=== PATIENT | female | born 1995 | race Caucasian/White ===

== ENCOUNTER 2019-02-12 21:14 | Emergency (ER) | payer SELFPAY ==
[2019-02-13 00:10] LABS: Urine Bacteria 20-50 /HPF (<20); Urine Culture Reflex Order REFLEXED; Urine RBC NONE SEEN /HPF (NONE SEEN)
--- NOTE | 2019-02-13 00:38 | EDPHYS ---
Physician Documentation [facility] Name: Kate Ley Age: 23 yrs Sex: Female : 1995 Arrival Date: 02/12/2019 Time: 21:18 Bed 18 Private MD: ED Physician Jake Fuentes HPI: 02/13 00:23 This 23 yrs old Female presents to ER via Ambulatory with complaints of gs PELVIC PAIN. 00:24 The patient presents with pelvic pain, that is located in/on the left inguinal area. gs Onset: The symptoms/episode began/occurred acutely. Modifying factors: The symptoms are alleviated by nothing, the symptoms are aggravated by nothing. Associated signs and symptoms: Pertinent negatives: fever. Severity of symptoms: At their worst the symptoms were severe, in the emergency department the symptoms have resolved. The patient has experienced similar episodes in the past, a few times. The patient has not recently seen a physician. MISCARRIAGE ABOUT A MONTH AGO. 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 - Social history:: Smoking status: Patient/guardian denies using tobacco. - Ebola Screening: : Patient denies travel to an Ebola-affected area in the 21 days before illness onset. ROS: 02/13 00:24 All other systems are negative. gs 00:37 : Negative for vaginal bleeding, vaginal discharge, vaginal itching. gs Exam: 00:24 Head/Face: Normocephalic, atraumatic. Eyes: Pupils equal round and reactive to light, gs extra-ocular motions intact. Lids and lashes normal. Conjunctiva and sclera are non-icteric and not injected. Cornea within normal limits. Periorbital areas with no swelling, redness, or edema. ENT: Nares patent. No nasal discharge, no septal abnormalities noted. Tympanic membranes are normal and external auditory canals are clear. Oropharynx with no redness, swelling, or masses, exudates, or evidence of obstruction, uvula midline. Mucous membranes moist. Neck: Trachea midline, no thyromegaly or masses palpated, and no cervical lymphadenopathy. Supple, full range of motion without nuchal rigidity, or vertebral point tenderness. No Meningismus. Chest/axilla: Normal chest wall appearance and motion. Nontender with no deformity. No lesions are appreciated. Cardiovascular: Regular rate and rhythm with a normal S1 and S2. No gallops, murmurs, or rubs. Normal PMI, no JVD. No pulse deficits. Respiratory: Lungs have equal breath sounds bilaterally, clear to auscultation and percussion. No rales, rhonchi or wheezes noted. No increased work of breathing, no retractions or nasal flaring. Abdomen/GI: Soft, non-tender, with normal bowel sounds. No distension or tympany. No guarding or rebound. No evidence of tenderness throughout. Back: No spinal tenderness. No costovertebral tenderness. Full range of motion. Skin: Warm, dry with normal turgor. Normal color with no rashes, no lesions, and no evidence of cellulitis. MS/ Extremity: Pulses equal, no cyanosis. Neurovascular intact. Full, normal range of motion. Neuro: Awake and alert, GCS 15, oriented to person, place, time, and situation. Cranial nerves II-XII grossly intact. Motor strength 5/5 in all extremities. Sensory grossly intact. Cerebellar exam normal. Normal gait. 00:24 Constitutional: The patient appears alert, awake. 00:24 Abdomen/GI: Palpation: mild abdominal tenderness, in the left lower quadrant, rebound tenderness, is not appreciated. Vital Signs: 02/12 21:20 BP 105 / 68; Pulse 90; Resp 18; Temp 99.0; Pulse Ox 99% on R/A; Weight 65.32 kg (R); aj1 Height 5 ft. 3 in. (160.02 cm) (R); 22:27 BP 100 / 61; Pulse 75; Resp 15 S; Pulse Ox 100% on R/A; cc3 23:20 BP 105 / 62; Pulse 71; Resp 15 S; Pulse Ox 100% on R/A; cc3 02/13 00:30 BP 110 / 65; Pulse 69; Resp 15 S; Pulse Ox 100% on R/A; Pain 0/10; cc3 02/12 21:20 Body Mass Index 25.51 (65.32 kg, 160.02 cm) aj1 MDM: 02/12 22:49 Patient medically screened. 02/13 00:24 Differential diagnosis: ovarian cyst, uterine fibroids, urinary tract infection, gs TORSION OVARY. 02/12 22:18 Order name: Urine Microscopic Only; Complete Time: 00:15 gs 02/13 00:18 Order name: Urine Culture EDIA 02/12 22:18 Order name: Urine Test (obtain specimen); Complete Time: 22:58 02/12 22:18 Order name: Urine Dipstick-Ancillary (obtain specimen); Complete Time: 22:58 02/12 22:50 Order name: US Pelvis Complete gs Administered Medications: No medications were administered Disposition: 02/13/19 00:36 Discharged to Home. Impression: Pelvic and perineal pain. - Condition is Stable. - Discharge Instructions: Pelvic Pain, Female. - Prescriptions for Naprosyn 500 mg Oral Tablet - take 1 tablet by ORAL route 2 times per day As needed take with food; 30 tablet. - Medication Reconciliation Form, Thank You Letter, Antibiotic Education, Prescription Opioid Use form. - Follow up: Private Physician; When: 1 - 2 days; Reason: Re-evaluation by your physician. Signatures: Dispatcher [employer] [facility] Chantel Bocanegra RN RN aj1 Jake Fuentes MD MD Jackie Dave cc3 Corrections: (The following items were deleted from the chart) 00:57 00:36 02/13/2019 00:36 Discharged to Home. Impression: Pelvic and perineal pain. cc3 Condition is Stable. Forms are Medication Reconciliation Form, Thank You Letter, Antibiotic Education, Prescription Opioid Use. Follow up: Private Physician; When: 1 - 2 days; Reason: Re-evaluation by your physician. gs
--- NOTE | 2019-02-13 00:38 | ER ---
Nurse's Notes [facility] Name: Kate Ley Age: 23 yrs Sex: Female : 1995 Arrival Date: 02/12/2019 Time: 21:18 Bed 18 Private MD: Diagnosis: Pelvic and perineal pain Presentation: 02/12 21:18 Presenting complaint: Patient states: "I'm having pain in my left ovary area. I was aj1 getting out of the bathtub early and I have a pain that shot all the way through and almost made me fall to the ground because it hurt so bad, it hurts worse with movement. I just had a miscarriage 2 or 3 weeks ago." Denies vaginal bleeding or abnormal vaginal discharge. Denies fever. Denies urinary symptoms. Transition of care: patient was not received from another setting of care. Onset of symptoms was 2018. Risk Assessment: Do you want to hurt yourself or someone else? Patient reports no desire to harm self or others. Initial Sepsis Screen: Does the patient meet any 2 criteria? No. Patient's initial sepsis screen is negative. Does the patient have a suspected source of infection? No. Patient's initial sepsis screen is negative. Care prior to arrival: None. 21:18 Method Of Arrival: Ambulatory aj1 21:18 Acuity: DYLON 3 aj1 Triage Assessment: 21:20 General: Appears in no apparent distress. comfortable, Behavior is calm, cooperative, aj1 appropriate for age. Pain: Pain currently is 8 out of 10 on a pain scale. Neuro: Level of Consciousness is awake, alert, obeys commands. Cardiovascular: Patient's skin is warm and dry. Respiratory: Airway is patent Respiratory effort is even, unlabored, Respiratory pattern is regular, symmetrical. GI: Reports lower abdominal pain. : Denies burning with urination, discharge, urinary frequency, urgency, vaginal bleeding, vaginal itching. Derm: No signs and/or symptoms reported regarding the dermatologic system. Skin is pink, warm \\T\\ dry. normal. Musculoskeletal: No signs and/or symptoms reported regarding the musculoskeletal system. Circulation, motion, and sensation intact. 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 - Social history:: Smoking status: Patient/guardian denies using tobacco. - Ebola Screening: : Patient denies travel to an Ebola-affected area in the 21 days before illness onset. Screenin:55 Abuse screen: Denies threats or abuse. Denies injuries from another. Nutritional cc3 screening: No deficits noted. Tuberculosis screening: No symptoms or risk factors identified. Fall Risk Ambulatory Aid- None/Bed Rest/Nurse Assist (0 pts). Gait- Normal/Bed Rest/Wheelchair (0 pts) Mental Status- Oriented to own ability (0 pts). Assessment: 21:55 General: Appears in no apparent distress. comfortable, Behavior is calm, cooperative, cc3 appropriate for age. Pain: Complains of pain in left lower quadrant and pelvis and left inguinal area. Neuro: Level of Consciousness is awake, alert, obeys commands, Oriented to person, place, time, situation, Appropriate for age. Cardiovascular: Denies chest pain, Heart tones S1 S2 present Capillary refill < 3 seconds in bilateral fingers Patient's skin is warm and dry. Respiratory: Airway is patent Respiratory effort is even, unlabored, Respiratory pattern is regular, symmetrical. GI: Abdomen is flat, Bowel sounds present X 4 quads. Abd is soft and non tender X 4 quads. : No signs and/or symptoms were reported regarding the genitourinary system. EENT: No signs and/or symptoms were reported regarding the EENT system. Derm: Skin is intact, is healthy with good turgor, Skin is pink, warm \\T\\ dry. normal. Musculoskeletal: Circulation, motion, and sensation intact. Range of motion: intact in all extremities. 22:18 Reassessment: Patient appears in no apparent distress at this time. Patient and/or cc3 family updated on plan of care and expected duration. Pain level reassessed. Patient is alert, oriented x 3, equal unlabored respirations, skin warm/dry/pink. 23:23 Reassessment: Patient appears in no apparent distress at this time. Patient and/or cc3 family updated on plan of care and expected duration. Pain level reassessed. Patient is alert, oriented x 3, equal unlabored respirations, skin warm/dry/pink. 02/13 00:45 Reassessment: Patient appears in no apparent distress at this time. Patient and/or cc3 family updated on plan of care and expected duration. Pain level reassessed. Patient is alert, oriented x 3, equal unlabored respirations, skin warm/dry/pink. Dr. Fuentes discharged the patient home with prescription given. No IV cannula in situ. Patient left ER vitally stable and ambulatory with her family. No valuables left in the patient's room. Patient denies pain at this time. Patient states feeling better. Patient states symptoms have improved. Vital Signs: 02/12 21:20 BP 105 / 68; Pulse 90; Resp 18; Temp 99.0; Pulse Ox 99% on R/A; Weight 65.32 kg (R); aj1 Height 5 ft. 3 in. (160.02 cm) (R); 22:27 BP 100 / 61; Pulse 75; Resp 15 S; Pulse Ox 100% on R/A; cc3 23:20 BP 105 / 62; Pulse 71; Resp 15 S; Pulse Ox 100% on R/A; cc3 02/13 00:30 BP 110 / 65; Pulse 69; Resp 15 S; Pulse Ox 100% on R/A; Pain 0/10; cc3 02/12 21:20 Body Mass Index 25.51 (65.32 kg, 160.02 cm) aj1 ED Course: 02/12 21:18 Patient arrived in ED. aj1 21:20 Triage completed. aj1 21:20 Arm band placed on Patient placed in waiting room, Patient notified of wait time. aj1 21:55 Jackie Dave is Primary Nurse. cc3 21:55 Patient has correct armband on for positive identification. Placed in gown. Bed in low cc3 position. Call light in reach. Side rails up X 1. Pulse ox on. NIBP on. 21:56 Jake Fuentes MD is Attending Physician. gs 23:39 US Pelvis Complete In Process Unspecified. EDMS 02/13 00:45 No provider procedures requiring assistance completed. Patient did not have IV access cc3 during this emergency room visit. Administered Medications: No medications were administered Outcome: 00:36 Discharge ordered by . gs 00:45 Discharged to home ambulatory, with family. cc3 00:45 Condition: stable 00:45 Discharge instructions given to patient, family, Instructed on discharge instructions, follow up and referral plans. medication usage, Demonstrated understanding of instructions, follow-up care, medications, Prescriptions given X 1. 00:57 Patient left the ED. cc3 Signatures: Dispatcher [employer] Chantel Gar RN RN aj1 Jake Fuentes MD MD gs Cordel, Charlene cc3
[2019-02-13 01:40] VITALS: TEMP 99
[2019-02-13 01:41] VITALS: O2SAT 100
[2019-02-13 01:43] VITALS: BP 110/65
--- NOTE | 2019-02-13 08:25 | RAD REPORT ---
EXAM DESCRIPTION: US - Pelvis Complete - 02/12/2019 11:39 pm CLINICAL HISTORY: PAIN TORSION Pelvic pain. COMPARISON: No comparisons FINDINGS: The uterus is normal in size, shape and echotexture. The uterus measures 6.8 x 4.2 x 3.8 c m. The endometrial stripe measures 8 mm, normal. Both ovaries are normal in size, shape and echotexture. The right ovary measures 3.2 x 2.6 x 2.5 cm. The left ovary measures 3.2 x 2.4 x 2.1 cm. No ovarian or parovarian lesions. No adnexal masses. Normal Doppler blood flow was demonstrated to both ovaries. No significant pelvic ascites. IMPRESSION: Unremarkable study.
== END 2019-02-13 00:57 | disposition home or self-care (01) ==
LOC: ER 21:14
DX: R10.2 Pelvic and perineal pain (principal)
CPT/HCPCS: 76856; 81015; 87086; 87088; 99283

== ENCOUNTER 2019-03-27 21:01 | Emergency (ER) | payer OTHER ==
--- OUTSIDE RECORDS SUMMARY | 2019-03-27 21:04 | XMS REPORT ---
:1995 [facility] [address] [place] [id number] Care Team Providers Name Role Phone Unavailable Unavailable Unavailable Problems This patient has no known problems. Allergies, Adverse Reactions, Alerts This patient has no known allergies or adverse reactions. Medications This patient has no known medications.
--- NOTE | 2019-03-27 22:12 | ER ---
Nurse's Notes [facility] Name: Kate Ley Age: 23 yrs Sex: Female : 1995 Arrival Date: 03/27/2019 Time: 21:05 Bed 23 Private MD: Diagnosis: Urinary tract infection, site not specified; state, incidental Presentation: 03/27 21:14 Presenting complaint: Patient states: "I have had bad smelling urine as well as back jd3 pain for a couple of days now.". Transition of care: patient was not received from another setting of care. Onset of symptoms was March 27, 2019. Risk Assessment: Do you want to hurt yourself or someone else? Patient reports no desire to harm self or others. Initial Sepsis Screen: Does the patient meet any 2 criteria? No. Patient's initial sepsis screen is negative. Does the patient have a suspected source of infection? No. Patient's initial sepsis screen is negative. Care prior to arrival: None. 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 - Social history:: Smoking status: Patient/guardian denies using tobacco. - Ebola Screening: : Patient negative for fever greater than or equal to 101.5 degrees Fahrenheit, and additional compatible Ebola Virus Disease symptoms. Screenin:20 Abuse screen: Denies threats or abuse. Denies injuries from another. Nutritional ss screening: No deficits noted. Tuberculosis screening: Never had TB. Fall Risk None identified. Assessment: 21:20 General: Appears in no apparent distress. comfortable, Behavior is calm, cooperative, ss Reports chills for Denies fever, feeling ill, fatigue. Pain: Complains of pain in low back, intermittent burning with urination Pain currently is 0 out of 10 on a pain scale. Neuro: Level of Consciousness is awake, alert, obeys commands, Oriented to person, place, time, situation. Cardiovascular: Capillary refill < 3 seconds is brisk in bilateral fingers. Respiratory: Airway is patent Respiratory effort is even, unlabored. GI: Patient currently denies abdominal pain. : Reports burning with urination, that began last night, but then went away. : Denies vaginal bleeding. Derm: Skin is intact, is healthy with good turgor, Skin is pink, warm \\T\\ dry. normal. Musculoskeletal: Circulation, motion, and sensation intact. Range of motion: intact in all extremities. Vital Signs: 21:16 BP 98 / 62; Pulse 81; Resp 17 S; Temp 98.0(TE); Pulse Ox 99% on R/A; Weight 64.86 kg jd3 (R); Height 5 ft. 3 in. (160.02 cm) (R); Pain 0/10; 21:16 Body Mass Index 25.33 (64.86 kg, 160.02 cm) jd3 ED Course: 21:05 Patient arrived in ED. cl3 21:15 Triage completed. jd3 21:17 Arm band placed on. jd3 21:20 Patient has correct armband on for positive identification. Bed in low position. Call ss light in reach. 21:34 Joann Ambrocio [facility]-C [facility]. snw 21:34 Jordan Payton MD is Attending Physician. snw 21:49 Paloma Branch, JEREL is Primary Nurse. ss 22:30 No provider procedures requiring assistance completed. Patient did not have IV access ss during this emergency room visit. Administered Medications: 22:15 Drug: Macrobid 100 mg Route: PO; ss 22:31 Follow up: Response: Medication administered at discharge. Outcome: 22:12 Discharge ordered by . snw 22:31 Discharged to home ambulatory, with family. ss 22:31 Condition: good 22:31 Discharge instructions given to patient, family, Instructed on discharge instructions, follow up and referral plans. medication usage, Demonstrated understanding of instructions, follow-up care, medications. 22:32 Patient left the ED. Signatures: Joann Ambrocio FNP-C [employer]-[facility] Paloma Branch RN RN Mannie Cowan RN RN Vicky Love cl3
--- NOTE | 2019-03-27 22:13 | EDPHYS ---
Physician Documentation [facility] Name: Kate Ley Age: 23 yrs Sex: Female : 1995 Arrival Date: 03/27/2019 Time: 21:05 Bed 23 Private MD: ROBERT Physician Jordan Payton HPI: 03/28 01:51 This 23 yrs old Female presents to ER via Ambulatory with complaints of Back snw Pain, Urinary Incontinence. 01:51 The patient presents with pain that is acute, with no known mechanism of injury. The snw symptoms are located in the low back, mild. Onset: The symptoms/episode began/occurred suddenly. The pain does not radiate. Associated signs and symptoms: Pertinent positives: dysuria. The problem was sustained +IUP, + urinary symptoms. Severity of symptoms: At their worst the symptoms were mild. It is unknown whether or not the patient has had similar symptoms in the past. 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 no fever. 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 - Social history:: Smoking status: Patient/guardian denies using tobacco. - Ebola Screening: : Patient negative for fever greater than or equal to 101.5 degrees Fahrenheit, and additional compatible Ebola Virus Disease symptoms. ROS: 03/28 01:47 Constitutional: Negative for fever, chills, and weight loss, Eyes: Negative for injury, snw pain, redness, and discharge, ENT: Negative for injury, pain, and discharge, Neck: Negative for injury, pain, and swelling, Cardiovascular: Negative for chest pain, palpitations, and edema, Respiratory: Negative for shortness of breath, cough, wheezing, and pleuritic chest pain, Abdomen/GI: Negative for abdominal pain, nausea, vomiting, diarrhea, and constipation, Back: Negative for injury, mild bilateral lower back pain MS/Extremity: Negative for injury and deformity, Skin: Negative for injury, rash, and discoloration, Neuro: Negative for headache, weakness, numbness, tingling, and seizure. : Positive for urinary symptoms, small amounts, burning with urination. : Positive for urinary symptoms, small amounts, burning with urination, + 9 wk IUP. Exam: 01:47 Constitutional: This is a well developed, well nourished patient who is awake, alert, snw and in no acute distress. Head/Face: Normocephalic, atraumatic. Eyes: Pupils equal round and reactive to light, extra-ocular motions intact. Lids and lashes normal. Conjunctiva and sclera are non-icteric and not injected. Cornea within normal limits. Periorbital areas with no swelling, redness, or edema. ENT: Nares patent. No nasal discharge, no septal abnormalities noted. Tympanic membranes are normal and external auditory canals are clear. Oropharynx with no redness, swelling, or masses, exudates, or evidence of obstruction, uvula midline. Mucous membranes moist. Neck: Trachea midline, no thyromegaly or masses palpated, and no cervical lymphadenopathy. Supple, full range of motion without nuchal rigidity, or vertebral point tenderness. No Meningismus. Chest/axilla: Normal chest wall appearance and motion. Nontender with no deformity. No lesions are appreciated. Cardiovascular: Regular rate and rhythm with a normal S1 and S2. No gallops, murmurs, or rubs. Normal PMI, no JVD. No pulse deficits. Respiratory: Lungs have equal breath sounds bilaterally, clear to auscultation and percussion. No rales, rhonchi or wheezes noted. No increased work of breathing, no retractions or nasal flaring. Abdomen/GI: Soft, non-tender, with normal bowel sounds. No distension or tympany. No guarding or rebound. No evidence of tenderness throughout. Back: No spinal tenderness. No costovertebral tenderness. Full range of motion. Skin: Warm, dry with normal turgor. Normal color with no rashes, no lesions, and no evidence of cellulitis. MS/ Extremity: Pulses equal, no cyanosis. Neurovascular intact. Full, normal range of motion. Neuro: Awake and alert, GCS 15, oriented to person, place, time, and situation. Cranial nerves II-XII grossly intact. Motor strength 5/5 in all extremities. Sensory grossly intact. Cerebellar exam normal. Normal gait. Psych: Awake, alert, with orientation to person, place and time. Behavior, mood, and affect are within normal limits. 01:51 Neuro: Exam negative for acute changes. snw Vital Signs: 03/27 21:16 BP 98 / 62; Pulse 81; Resp 17 S; Temp 98.0(TE); Pulse Ox 99% on R/A; Weight 64.86 kg jd3 (R); Height 5 ft. 3 in. (160.02 cm) (R); Pain 0/10; 21:16 Body Mass Index 25.33 (64.86 kg, 160.02 cm) jd3 MDM: 21:49 Patient medically screened. [facility] 03/28 01:49 Data reviewed: vital signs, nurses notes. Data interpreted: Pulse oximetry: on room air snw is 99 %. Interpretation: normal. Counseling: I had a detailed discussion with the patient and/or guardian regarding: the historical points, exam findings, and any diagnostic results supporting the discharge/admit diagnosis, lab results, the need for outpatient follow up, to return to the emergency department if symptoms worsen or persist or if there are any questions or concerns that arise at home. Special discussion: Based on the history and exam findings, there is no indication for further emergent testing or inpatient evaluation. I discussed with the patient/guardian the need to see the OB Gyne specialist for further evaluation of the symptoms. I discussed with the patient/guardian the need to see the primary care provider for further evaluation of the symptoms. 01:50 Response to treatment: the patient's symptoms have mildly improved after treatment. snw 03/27 21:35 Order name: Urine Culture snw 03/27 21:35 Order name: Urine Microscopic Only; Complete Time: 22:16 snw 03/27 22:04 Order name: GC (Kirit/Chl) Probe URINE EDMS 03/27 22:08 Order name: Urine Dipstick--Ancillary (enter results); Complete Time: 22:16 ar5 03/27 22:08 Order name: Urine --Ancillary (enter results); Complete Time: 22:16 ar5 03/27 21:35 Order name: Urine Test (obtain specimen); Complete Time: 22:01 snw 03/27 21:35 Order name: Urine Dipstick-Ancillary (obtain specimen); Complete Time: 22:01 snw Administered Medications: 03/27 22:15 Drug: Macrobid 100 mg Route: PO; ss 22:31 Follow up: Response: Medication administered at discharge. ss Disposition: 03/27/19 22:12 Discharged to Home. Impression: Urinary tract infection, site not specified, state, incidental. - Condition is Stable. - Discharge Instructions: and Urinary Tract Infection, Rehydration, Adult. - Prescriptions for Macrobid 100 mg Oral Capsule - take 1 capsule by ORAL route every 12 hours for 10 days; 20 capsule. - Medication Reconciliation Form, Thank You Letter, Antibiotic Education, Prescription Opioid Use form. - Follow up: Emergency Department; When: As needed; Reason: Worsening of condition. Follow up: Private Physician; When: 2 - 3 days; Reason: Recheck today's complaints, Continuance of care, Re-evaluation by your physician. Addendum: 03/30/2019 09:23 Co-signature as Attending Physician, Jordan Payton MD I agree with the assessment and c nichole plan of care. Signatures: Dispatcher [employer] [facility] Jordan Payton MD MD cha Therrien, Shelly, CHEF INSTRUCTOR-C CHEF INSTRUCTOR-Csnw [place] RN RN Mannie Steward RN RN jd3 Corrections: (The following items were deleted from the chart) 03/27 22:04 21:55 GC (Gonorr/Clamydia) Probe+R.LAB.BRZ ordered. [facility] 22:32 22:12 03/27/2019 22:12 Discharged to Home. Impression: Urinary tract infection, site ss not specified; state, incidental. Condition is Stable. Forms are Medication Reconciliation Form, Thank You Letter, Antibiotic Education, Prescription Opioid Use. Follow up: Emergency Department; When: As needed; Reason: Worsening of condition. Follow up: Private Physician; When: 2 - 3 days; Reason: Recheck today's complaints, Continuance of care, Re-evaluation by your physician. snw
[2019-03-27 22:14] LABS: Urine Culture Reflex Order NOT NEEDED
[2019-03-27 22:15] LABS: Urine Bacteria 20-50 /HPF (<20); Urine RBC <5 /HPF (NONE SEEN)
[2019-03-27 22:15] LABS: Urine Blood NEGATIVE (NEG); Urine Glucose NEGATIVE (NEG); Urine Protein NEGATIVE (NEG); Urine Specific Gravity 1.015 (1.005-1.030); Urine pH 6.5 (5.0-7.0)
[2019-03-27] MEDS ORDERED: NITROFURAN MACRO 100 MG CAP PO ONE (22:15)
[2019-03-27 23:09] VITALS: BP 98/62; TEMP 98; O2SAT 99
[2019-04-01 11:32] LABS: C.trachomatis RNA,TMA Not Detected (Not Detected)
== END 2019-03-27 22:32 | disposition home or self-care (01) ==
LOC: ER 21:01
DX: N39.0 Urinary tract infection, site not specified (principal); Z33.1 Pregnant state, incidental; Z88.0 Allergy status to penicillin
CPT/HCPCS: 81003; 81015; 81025; 87086; 87088; 87490; 87590; 99283

== ENCOUNTER 2019-05-08 19:55 | Emergency (ER) | payer OTHER, SELFPAY ==
--- OUTSIDE RECORDS SUMMARY | 2019-05-08 19:57 | XMS REPORT ---
:1995 [facility] [address] [place] [id number] Care Team Providers Name Role Phone Unavailable Unavailable Unavailable Problems This patient has no known problems. Allergies, Adverse Reactions, Alerts This patient has no known allergies or adverse reactions. Medications This patient has no known medications.
--- NOTE | 2019-05-08 22:51 | ER ---
Nurse's Notes [facility] Name: Kate Ley Age: 23 yrs Sex: Female : 1995 Arrival Date: 05/08/2019 Time: 19:57 Bed 23 Private MD: Diagnosis: Urinary tract infection, site not specified Presentation: 05/08 20:04 Presenting complaint: Patient states: "Whenever I pee i feel like I have pressure aj1 there, and I'm having left abdominal pain tyler over my ovary area" Denies fever. Patient reports that she is 15 weeks . Transition of care: patient was not received from another setting of care. Onset of symptoms was May 08, 2019. Risk Assessment: Do you want to hurt yourself or someone else? Patient reports no desire to harm self or others. Initial Sepsis Screen: Does the patient meet any 2 criteria? No. Patient's initial sepsis screen is negative. Does the patient have a suspected source of infection? Yes: Dysuria/Frequency/Urgency/UTI. Care prior to arrival: None. 20:04 Method Of Arrival: Ambulatory aj1 20:04 Acuity: DYLON 4 aj1 Triage Assessment: 20:05 General: Appears in no apparent distress. comfortable, Behavior is calm, cooperative, aj1 appropriate for age. Pain: Complains of pain in pelvis. Neuro: Level of Consciousness is awake, alert, obeys commands. Cardiovascular: Patient's skin is warm and dry. Respiratory: Airway is patent Respiratory effort is even, unlabored, Respiratory pattern is regular, symmetrical. : Reports burning with urination. 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 - Social history:: Smoking status: Patient/guardian denies using tobacco. - Ebola Screening: : Patient denies travel to an Ebola-affected area in the 21 days before illness onset. Screenin:52 Abuse screen: Denies threats or abuse. Denies injuries from another. Nutritional ls4 screening: No deficits noted. Tuberculosis screening: No symptoms or risk factors identified. Fall Risk None identified. Assessment: 21:51 General: Appears in no apparent distress. Behavior is calm, cooperative, appropriate ls4 for age. Pain:. 23:14 Reassessment: Patient appears in no apparent distress at this time. Patient and/or ls4 family updated on plan of care and expected duration. Pain level reassessed. Patient is alert, oriented x 3, equal unlabored respirations, skin warm/dry/pink. 23:16 Neuro: No deficits noted. Cardiovascular: No deficits noted. Respiratory: No deficits ls4 noted. : No deficits noted. Vital Signs: 20:05 BP 106 / 65; Pulse 77; Resp 16; Temp 97.8; Pulse Ox 100% on R/A; Weight 64.86 kg (R); aj1 Height 5 ft. 5 in. (165.10 cm) (R); Pain 3/10; 20:05 Body Mass Index 23.80 (64.86 kg, 165.10 cm) aj1 ED Course: 19:57 Patient arrived in ED. cl3 20:05 Triage completed. aj1 21:36 Arm band placed on right wrist. ls4 21:37 Patient has correct armband on for positive identification. Call light in reach. Side ls4 rails up X 1. 21:41 Warren Beasley PA is [facility] 21:41 Jordan Payton MD is Attending Physician. [facility] 21:51 Lamar Hilliard, RN is Primary Nurse. ls4 23:15 No provider procedures requiring assistance completed. ls4 23:17 IV discontinued, intact. ls4 Administered Medications: No medications were administered Outcome: 22:51 Discharge ordered by . [facility] 23:17 Condition: good ls4 23:17 Discharge instructions given to patient, family, Instructed on discharge instructions, follow up and referral plans. Demonstrated understanding of instructions, follow-up care, medications. 23:21 Discharged to home ambulatory, with significant other. ls4 23:21 Patient left the ED. ls4 Signatures: Chantel Bocanegra, RN RN aj1 Warren Beasley PA PA jmm Stewart, Lisa, RN RN ls4 Vicky Dow cl3 Corrections: (The following items were deleted from the chart) 20:06 20:04 Presenting complaint: Patient states: "Whenever I pee i feel like I have pressure aj1 there, and I'm having left abdominal pain tyler over my ovary area" Denies fever aj1 23: 21:37 Condition: good ls4 ls4 : 21:37 Discharge instructions given to patient, family, Instructed on discharge ls4 instructions, follow up and referral plans. Demonstrated understanding of instructions, follow-up care, medications, ls4
--- NOTE | 2019-05-08 22:51 | EDPHYS ---
Physician Documentation [facility] Name: Kate Ley Age: 23 yrs Sex: Female : 1995 Arrival Date: 05/08/2019 Time: 19:57 Bed 23 Private MD: ED Physician Jordan Payton HPI: 05/08 22:47 This 23 yrs old Female presents to ER via Ambulatory with complaints of Pain jmm With Urination. 22:47 The patient presents with urinary symptoms. Onset: The symptoms/episode began/occurred jmm gradually, 1 day(s) ago. Modifying factors: The symptoms are alleviated by nothing, the symptoms are aggravated by nothing. Associated signs and symptoms: Pertinent positives: dysuria, Pertinent negatives: fever, vaginal bleeding. This is a that presents to the ED with complaints of painful urination beginning yesterday. Denies fever, vomiting, shortness of breath. Denies pelvic pain. 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 - Social history:: Smoking status: Patient/guardian denies using tobacco. - Ebola Screening: : Patient denies travel to an Ebola-affected area in the 21 days before illness onset. ROS: 22:47 Constitutional: Negative for fever, chills, and weight loss, Cardiovascular: Negative jmm for chest pain, palpitations, and edema, Respiratory: Negative for shortness of breath, cough, wheezing, and pleuritic chest pain, Abdomen/GI: Negative for abdominal pain, nausea, vomiting, diarrhea, and constipation. 22:47 : Positive for urinary symptoms. 22:47 All other systems are negative. Exam: 22:47 Constitutional: This is a well developed, well nourished patient who is awake, alert, jmm and in no acute distress. Head/Face: atraumatic. Eyes: EOMI, no conjunctival erythema appreciated ENT: Moist Mucus Membranes Neck: Trachea midline, Supple Chest/axilla: Normal chest wall appearance and motion. Cardiovascular: Regular rate and rhythm. No edema appreciated Respiratory: Normal respirations, no respiratory distress appreciated Abdomen/GI: Non distended, soft Back: Normal ROM Skin: General appearance color normal MS/ Extremity: Moves all extremities, no obvious deformities appreciated, no edema noted to the lower extremities Neuro: Awake and alert, normal gait Psych: Behavior is normal, Mood is normal, Patient is cooperative and pleasant Vital Signs: 20:05 BP 106 / 65; Pulse 77; Resp 16; Temp 97.8; Pulse Ox 100% on R/A; Weight 64.86 kg (R); aj1 Height 5 ft. 5 in. (165.10 cm) (R); Pain 3/10; 20:05 Body Mass Index 23.80 (64.86 kg, 165.10 cm) aj1 MDM: 21:58 Patient medically screened. jaylyn 22:47 Data reviewed: vital signs, nurses notes. Counseling: I had a detailed discussion with jos the patient and/or guardian regarding: the historical points, exam findings, and any diagnostic results supporting the discharge/admit diagnosis, the need for outpatient follow up, to return to the emergency department if symptoms worsen or persist or if there are any questions or concerns that arise at home. ED course: Patient is alert and non toxic in appearance in the ED. Patient advised to follow up with OB for reevaluation. patient otherwise given strict return precautions. Patient understood and agrees with the plan of care. . 05/08 22:18 Order name: Urine Dipstick--Ancillary (enter results) fc 05/08 22:18 Order name: Urine --Ancillary (enter results) fc Administered Medications: No medications were administered Disposition: 05/08/19 22:51 Discharged to Home. Impression: Urinary tract infection, site not specified. - Condition is Stable. - Discharge Instructions: Urinary Tract Infection, Adult. - Prescriptions for Cephalexin 250 mg/5 ml Oral Suspension for Reconstitution - take 10 milliliter by ORAL route every 12 hours for 10 days; 200 milliliter. - Medication Reconciliation Form, Thank You Letter, Antibiotic Education, Prescription Opioid Use form. - Follow up: Private Physician; When: 2 - 3 days; Reason: Recheck today's complaints, Continuance of care, Re-evaluation by your physician. Addendum: 05/10/2019 10:01 Co-signature as Attending Physician, Jordan Payton MD I agree with the assessment and c nichole plan of care. Signatures: Dispatcher [employer] Chantel Gar, RN RN aj1 Jordan Payton MD MD cha Mickail, Joel, PA PA jmm Stewart, Lisa, RN RN ls4 Corrections: (The following items were deleted from the chart) 05/08 23:21 22:51 05/08/2019 22:51 Discharged to Home. Impression: Urinary tract infection, site ls4 not specified. Condition is Stable. Forms are Medication Reconciliation Form, Thank You Letter, Antibiotic Education, Prescription Opioid Use. Follow up: Private Physician; When: 2 - 3 days; Reason: Recheck today's complaints, Continuance of care, Re-evaluation by your physician. jos
[2019-05-09 00:43] LABS: Urine Blood NEGATIVE (NEG); Urine Glucose NEGATIVE (NEG); Urine Protein NEGATIVE (NEG)
[2019-05-09 00:56] VITALS: BP 106/65; TEMP 97.8; O2SAT 100
== END 2019-05-08 23:21 | disposition home or self-care (01) ==
LOC: ER 19:55
DX: O23.42 Unspecified infection of urinary tract in pregnancy, second trimester (principal); Z88.0 Allergy status to penicillin; Z3A.15 15 weeks gestation of pregnancy
CPT/HCPCS: 81003; 81025; 99281

== ENCOUNTER 2021-08-24 19:16 | Emergency (ER) | payer OTHER ==
--- OUTSIDE RECORDS SUMMARY | 2021-08-24 19:20 | XMS REPORT | Continuity of Care Document ---
:1995 Author Organization [facility] t Address [address] [place] [address] Care Team Providers Name Role Phone Mariah Lewis Primary Care Physician Mariah Lewis Attending Clinician Unavailable Oscar HUNTLEY Attending Clinician CARA_Basil Attending Clinician Unavailable Swathi Matthews Attending Clinician [phone] Zeferino Andres MD Attending Clinician Nurse, Urgent Care Attending Clinician Unavailable Doctor Unassigned, Name Attending Clinician Unavailable James REID R Attending Clinician Stewart REID F Attending Clinician Mariah Lewis Admitting Clinician Unavailable SIMEON Admitting Clinician Unavailable Andres MD, Cam Admitting Clinician Payers Payer Name Policy Type Policy Number Effective Date Expiration Date Mariah blakely [facility] [id number] CHOICE (MEDICAID REPLACEMENT - HMO) Advance Directives Directive Decision Effective Termination Comments Source Date Date Healthcare Agents on N/A [facility] Agent Medical RelationshipCommunicationElihardtner medical center Branch A [facility] [phone] (Mobile) Problems Condition Condition Condition Status Onset Resolution Last Treating Co mments Source Name Details Category Date Date Treatment Clinician Date Mild Mild Disease Active 2018-04 Univers intermitte intermitte 2-30 [place] of nt asthma [place] Medical complic[place] complicati Br anch on on Previous Previous Disease Active 2018-04 Unive rs 1-26 ity of section section 00:00: [place] 00 Medical Branch Allergies, Adverse Reactions, Alerts Allergy Allergy Status Severity Reaction(s) Onset Inactive Treating Comm ents Source Name Type Date Date Clinician No Known DA Active U 2019-0 [facility] Allergie 6-21 Clear s 00:00: [place] 00 [facility] No Known DA Active U 2020-0 [facility] Allergie 6-21 Clear s 00:00: Valentine 00 [facility] Azithrom Propensi Active Shortness of Univers ycin ty to Breath 5-03 ity of adverse 00:00: [place] reaction 00 Medical s Branch Social History Social Habit Start Date Stop Date Quantity Comments Source Exposure to Not sure [facility] SARS-CoV-2 (event) Medica l Branch Alcohol intake 2021-06-06 2021-06-06 0 [facility] 00:[facility] Medical Branch Tobacco use and 2015-08-23 2015-08-23 Never used [facility] exposure 00:00:00 00:00:00 [facility] Sex Assigned At [birth year] [facility] 00:00:00 00:00:00 [facility] [place] Smoking Status Start Date Stop Date Source Never smoker [facility] Medications Ordered Filled Start Stop Current Ordering Indication Dosage Frequency Signature Comments Components Source Medication Medication Date Date Medication? Clinician (SIG) Name Name NUVARING Yes [id number] 1{each} Insert 1 Univers 0.12-0.015 2-17 Each into ity of mg/24 hr 00:00: vagina [place] vaginal 00 once every Medica l insert month. Branch Insert vaginally and leave in place for 3 consecutiv e weeks, then remove for 1 week. albuterol 2018- Yes 2{puff} Inhale 2 U nivers 90 2-10 Puffs ity of mcg/actuati 00:00: every 6 Ilir as on inhaler 00 (six) Medical hours as Branch needed for Wheezing or Shortness of Breath. Immunizations Ordered Filled Immunization Date Status Comments [facility] e Immunization Name Name Influenza Virus 2020-02-04 Completed Universit y of Vaccine Quad IM 00:00:00 [place] Med ical Multi-dose 6+ MO Branch Influenza Virus 2019-03-17 Completed Universit y of Vaccine Quad .5 mL 00:00:00 [facility] 6+ MO Branch TDAP (ADACEL) 2016-02-13 Completed University of VACCINE 00:00:00 [facility] [place] MMR 2015-08-25 Completed University of 00:00:00 [facility] [place] HPV 2009-02-12 Completed University of 00:00:00 [facility] [place] HPV 2008-02-13 Completed University of 00:00:00 [facility] [place] DTP 1996-04-27 Completed University of 00:00:00 [facility] [place] Hep B, Adol or Pedi 1996-04-27 Completed Unive rsity of Dosage 00:00:00 [facility] [place] HIB 4 Dose Schedule 1996-04-27 Completed Unive rsity of 00:00:00 [facility] [place] Polio (IPV/OPV) 1996-04-27 Completed Universit y of 00:00:00 [facility] [place] DTP 1996-02-18 Completed University of 00:00:00 [facility] [place] HIB 4 Dose Schedule 1996-02-18 Completed Unive rsity of 00:00:00 [facility] [place] Polio (IPV/OPV) 1996-02-18 Completed Universit y of 00:00:00 [facility] [place] DTP 1995 Completed University of 00:00:00 [facility] [place] Hep B, Adol or Pedi 1995 Completed Unive rsity of Dosage 00:00:00 [facility] [place] HIB 4 Dose Schedule 1995 Completed Unive rsity of 00:00:00 [facility] [place] Polio (IPV/OPV) 1995 Completed Universit y of 00:00:00 [facility] [place] Hep B, Adol or Pedi 1995 Completed Unive rsity of Dosage 00:00:00 [facility] [place] Procedures Procedure Date / Time Performed Performing Clinician Alina jauregui [id number] 2019-10-22 00:00:00 [facility] Start End Encounter Admission Attending Care Care Encounter Source Date/Time Date/Time Type Type Clinicians Facility Department ID 2019-10-22 [facility] LD [id number] [facility] 12:00:00 Jake [id number] [facility] [place] 2019-10-18 Inpatient Lewis, [facility] MANOJ [id number] [facility] 22:17:00 Jake [id number] [facility] [place] 2019-10-10 Inpatient Lewis, [facility] MANOJ [id number] [facility] 23:59:00 Jake [facility] [place] 2021-06-08 2021-06-08 [facility] [id number] [facility] 00:00:00 00:00:00 Reba ROTHMAN [id number] i ty of [place] 4.2.7.2.686 Melita ODEN [id number] Nd dical [address] 2021-03-01 2021-03-01 Outpatient [facility] [address] [place] 10:10:00 10:10:00 _L 412 [facility] 2021-03-01 2021-03-01 Outpatient [facility] [address] [place] 10:10:00 10:10:00 _L 110 [facility] 2021-03-01 2021-03-01 Outpatient [facility] [id number] 00:00:00 00:00:00 , Lamar [id number] Swathi [id number] 2021-02-20 2021-02-20 Outpatient [facility] [address] [place] 12:30:00 12:30:00 _L 101 [facility] 2021-02-20 2021-02-20 Outpatient [facility] [address] [place] 12:30:00 12:30:00 _L 109 [facility] 2021-02-20 2021-02-20 Outpatient [facility] [id number] 00:00:00 00:00:00 , [place] [id number] Swathi [id number] 2021-01-12 2021-01-12 Outpatient [facility] [address] [place] 11:34:00 11:34:00 _L 020 [facility] 2020-12-21 2020-12-21 Outpatient [facility] [address] [place] 11:23:00 11:23:00 _L 901 [facility] 2020-12-21 2020-12-21 Outpatient [facility] [id number] 00:00:00 00:00:00 , [place] [id number] Swathi [id number] 2020-12-13 2020-12-13 Outpatient [facility] [address] [place] 10:17:00 10:17:00 _L 824 [facility] 2020-12-13 2020-12-13 Outpatient [facility] [id number] [id number] 00:00:00 00:00:00 , [place] [id number] Swathi [id number] 2020-12-09 2020-12-09 Outpatient [facility] [address] [place] 12:51:00 12:51:00 _L 820 [facility] 2020-12-08 2020-12-08 Outpatient [facility] [address] [place] 04:19:00 04:19:00 _L 819 [facility] 2020-12-08 2020-12-08 Outpatient [facility] [id number] 00:00:00 00:00:00 , [place] [id number] Swathi [id number] 2020-11-09 2020-11-09 Outpatient [facility] [address] [place] 04:10:00 04:10:00 _L 721 [facility] 2020-11-09 2020-11-09 Outpatient [facility] [id number] 00:00:00 00:00:00 , [place] [id number] Swathi [id number] 2020-11-09 2020-11-09 Outpatient [facility] [id number] 00:00:00 00:00:00 , [place] [id number] Swathi [id number] 2020-07-04 2020-07-04 Outpatient [place] [id number] [place] 05:06:00 05:06:00 _L 315 [facility] 2020-07-04 2020-07-04 Outpatient [facility] [id number] 00:00:00 00:00:00 , Lamar [id number] Swathi [id number] 2020-05-12 2020-05-12 Outpatient [facility] [address] [place] 03:16:00 03:16:00 _L 121 [facility] 2020-05-03 2020-05-03 Outpatient [facility] [address] [place] 08:52:00 08:52:00 _L 112 [facility] 2020-05-02 2020-05-02 Outpatient [place] [id number] [place] 01:56:00 01:56:00 _L 111 [facility] 2020-05-02 2020-05-02 Outpatient [facility] [id number] 00:00:00 00:00:00 , [place] [id number] Swathi [id number] 2020-04-28 2020-04-28 Outpatient [facility] [address] [place] 04:56:00 04:56:00 _L 107 [facility] 2020-04-28 2020-04-28 Outpatient [place] [id number] 00:00:00 00:00:00 , [place] [id number] Swathi [id number] 2020-04-28 2020-04-28 Outpatient [facility] [id number] [id number] 00:00:00 00:00:00 , [place] [id number] Swathi [id number] 2019-10-19 2019-10-19 [facility] [id number] [facility] 17:43:00 17:43:00 Jake [id number] [facility] 2019-06-22 2019-06-22 Telephone Mary Andres [place] 1.2.840.114 [id number] 00:00:00 00:00:00 Zeferino Rothman [id number] [place] 4.2.7.2.686 Professio [id number] [address] 2019-06-21 2019-06-21 [facility] Mary Andres [place] 1.2.840.114 [id number] 21:08:00 21:57:00 Encounter Zeferino Rothman [id number] [place] 4.2.7.2.686 [place] [id number] 2019-06-21 2019-06-21 Nurse Nurse, Haja [facility] [id number] [id number] 20:57:29 20:58:31 Visit Urgent Care Health [id number] Surgical 4.2.7.2.686 Specialti [id number] es [address] [place] 2019-06-21 2019-06-21 Orders Doctor CHUY 1.2.840.114 [id number] 00:00:00 00:00:00 Only Unassigned, NYDIA 350.1.13.10 [facility] 4.2.7.2.686 [id number] [id number] 2019-06-10 2019-06-10 Telephone Mary Andres [place] 1.2.840.114 [id number] 00:00:00 00:00:00 Cam [place] 350.1.13.10 [place] 4.2.7.2.686 Professio [id number] [address] 2019-05-29 2019-05-29 Orders Doctor CHUY 1.2.840.114 [id number] 00:00:00 00:00:00 Only Unassigned, NYDIA 350.1.13.10 [facility] 4.2.7.2.686 [id number] [id number] 2019-05-29 2019-05-29 Telephone Mary Andres [place] 1.2.840.114 [id number] 00:00:00 00:00:00 Cam [place] [id number] [place] 4.2.7.2.686 Professio [id number] [address] 2019-05-27 2019-05-27 Telephone Mary Andres [place] 1.2.840.114 [id number] 00:00:00 00:00:00 Cam [place] 350.1.13.10 [place] 4.2.7.2.686 Professio [id number] [address] 2019-05-25 2019-05-25 Telephone Mary Andres [place] 1.2.840.114 [id number] 00:00:00 00:00:00 Cam [place] 350.1.13.10 [place] 4.2.7.2.686 Professio [id number] [address] 2019-05-18 2019-05-18 Routine Mary Andres [place] [id number] 15:31:57 16:39:05 Cam [place] 350.1.13.10 Visit [place] 4.2.7.2.686 Professio [id number] [address] 2019-05-18 2019-05-18 Orders Doctor CHUY 1.2.840.114 [id number] 00:00:00 00:00:00 Only Unassigned, NYDIA 350.1.13.10 [place] [address]686 [id number] 009 2019-05-13 2019-05-13 Abstract James [facility] 1.2.840.114 [id number] 00:00:00 00:00:00 Kassandracarrie Fernandes PHARMACEUTICAL LABORATORY TECHNICIAN 350.1.13.10 [facility] 4.2.7.2.686 MATERNAL [id number] & CHILD [address] [place] [address] 2019-04-20 2019-04-20 Orders Doctor CHUY 1.2.840.114 [id number] 00:00:00 00:00:00 Only Unassigned, NYDIA 350.1.13.10 [place] [address]686 [id number] 009 2018-12-12 2018-12-12 Orders Doctor CHUY 1.2.840.114 [id number] 00:00:00 00:00:00 Only Unassigned, NYDIA 350.1.13.10 [place] [address]686 [id number] [id number] 2018-12-03 2018-12-03 Emergency Stewart [facility] 1.2.840.114 [id number] 18:02:02 20:57:00 Teja Shaw [place] 350.1.13.10 [place] [id number] [place] [id number] 2018-12-03 2018-12-03 Orders Doctor CHUY 1.2.840.114 [id number] 00:00:00 00:00:00 Only Unassigned, NYDIA 350.1.13.10 [place] [address]686 [id number] 009 Results Test Description Test Time Test Comments Results Result Comments Source HGB HCT 2019-10-23 06:35:00 Test Item Value Reference Range Interpretation Comme nts HEMOGLOBIN (test code = HGB) 8.4 g/dL 10.7-13.9 L HEMATOCRIT (test code = HCT) 26.7 % 32.1-42.1 L COMPREHENSIVE METABOLIC [id number] 11:50:00 Test Item Value Reference Range Interpretation Comments SODIUM (test code = NA) 137 mEq/L 135-145 N POTASSIUM (test code = K) 3.9 mEq/L 3.5-5.0 N CHLORIDE (test code = CL) 103 mEq/L 100-115 N CARBON DIOXIDE (test code = CO2) 23 mEq/L 22-31 N ANION GAP (test code = GAP) 14.50 10-20 N GLUCOSE (test code = GLU) 73 mg/dL 65-110 N BLOOD UREA NITROGEN (test code = 10 mg/dL 7-18 N BUN) GLOMERULAR FILTRATION RATE (test 103 ml/min >60 N code = GFR) CREATININE (test code = CREAT) 0.7 mg/dL 0.5-1.0 N TOTAL PROTEIN (test code = PROT) 6.7 gm/dL 6.3-8.2 N ALBUMIN (test code = ALB) 3.1 gm/dL 3.4-4.8 L CALCIUM (test code = CA) 8.2 mg/dL 8.4-10.2 L BILIRUBIN TOTAL (test code = 0.2 mg/dL 0.2-1.0 N BILT) SGOT/AST (test code = AST) 12 units/L 15-37 L SGPT/ALT (test code = ALT) 9 units/L 12-78 L ALKALINE PHOSPHATASE TOTAL (test 234 units/L 46-116 H code = ALKP) Novel Coronavirus 2019 [id number] 09:59:00 Test Item Value Reference Range Interpretation Comments Novel Coronavirus 2019 Inhouse (test Negative Negative code = COVNONPUI) Novel Coronavirus 2019 [id number] 09:59:00 Test Item Value Reference Range Interpretation Comments Novel Coronavirus 2019 Inhouse (test Negative Negative code = COVNONPUI) AG HEPATITIS B [id number] 17:41:00 Test Item Value Reference Range Interpretation Comments AG HEPATITIS B SURFACE (test code NONREACTIVE NONREACTIVE = HBSAG) : *IS CONSENT FORM SIGNED FOR HIV TESTING? YAB [id number] 17:41:00 Test Item Value Reference Range Interpretation Comments AB TREPONEMA (test code = TREPAB) NONREACTIVE NONREACTIVE : *IS CONSENT FORM SIGNED FOR HIV TESTING? YAB HIV 1 17:41:00 Test Item Value Reference Range Interpretation Comments AB HIV 1 2 (test NONREACTIVE NONREACTIVE [facility] [place] [facility] code = FDA67NL) 4th Gen HIV Ag/Ab Combo Screen : *IS CONSENT FORM SIGNED FOR HIV TESTING? YAG HEPATITIS B [id number] 17:11:00 Test Item Value Reference Range Interpretation Comments AG HEPATITIS B SURFACE (test code NONREACTIVE NONREACTIVE = HBSAG) : *IS CONSENT FORM SIGNED FOR HIV TESTING? YAB [id number] 17:11:00 Test Item Value Reference Range Interpretation Comments AB TREPONEMA (test code = TREPAB) NONREACTIVE NONREACTIVE : *IS CONSENT FORM SIGNED FOR HIV TESTING? YAB HIV 1 17:11:00 Test Item Value Reference Range Interpretation Comments AB HIV 1 2 (test code = [id number]) NONREACTIVE : *IS CONSENT FORM SIGNED FOR HIV TESTING? YCBC W/AUTO [id number] 16:34:00 Test Item Value Reference Range Interpretation Comments WHITE BLOOD CELL (test code = WBC) 9.7 K/mm3 6.6-12.1 N RED BLOOD CELL (test code = RBC) 3.56 M/mm3 3.45-5.01 N HEMOGLOBIN (test code = HGB) 10.2 g/dL 10.7-13.9 L HEMATOCRIT (test code = HCT) 32.3 % 32.1-42.1 N MEAN CELL VOLUME (test code = MCV) 91 fL 84.1-94.8 N MEAN CELL HGB (test code = MCH) 28.7 pg 27-35 N MEAN CELL HGB CONCETRATION (test 31.6 gm/dL 32.2-34.1 L code = MCHC) RED CELL DISTRIBUTION WIDTH (test 13.4 % 12.4-16.5 N code = RDW) PLATELET COUNT (test code = PLT) 256 K/mm3 133-385 N MEAN PLATELET VOLUME (test code = 10.6 fl 9.1-12.7 N MPV) NEUTROPHIL % (test code = NT%) 76.0 % 56.5-79.4 N LYMPHOCYTE % (test code = LY%) 14.2 % 14.3-34.3 L MONOCYTE % (test code = MO%) 6.1 % 5.1-10.4 N EOSINOPHIL % (test code = EO%) 0.6 % 0.1-3.0 N BASOPHIL % (test code = BA%) 0.2 % 0.1-1.0 N NEUTROPHIL # (test code = NT#) 7.4 K/mm3 LYMPHOCYTE # (test code = LY#) 1.4 K/mm3 MONOCYTE # (test code = MO#) 0.6 K/mm3 EOSINOPHIL # (test code = EO#) 0.06 K/mm3 BASOPHIL # (test code = BA#) 0.0 K/mm3 RBC MORPHOLOGY REQUIRED (test code NORMAL NORMAL = RBCM) PLATELET MORPHOLOGY REQUIRED (test NORMAL NORMAL code = PLTMR)
[2021-08-24] MEDS ORDERED: METHYLPREDNISOLONE 125 MG INJ ONE (21:05)
[2021-08-24] MEDS ORDERED: CYCLOBENZAPRINE 10 MG TAB ONE (21:05)
[2021-08-24] MEDS ORDERED: KETOROLAC 30 MG/ML INJ ONE (21:06)
--- NOTE | 2021-08-24 21:13 | RAD REPORT ---
EXAM DESCRIPTION: CT - Spine Lumbar Wo Con - 08/24/2021 8:59 pm CLINICAL HISTORY: Low back pain, trauma COMPARISON: Chest Single View dated 01/07/2021; Chest Single View dated 12/09/2018No comparisons TECHNIQUE: Axial noncontrast CT imaging of the lumbar spine was performed with coronal and sagittal re-formatted images. All CT scans are performed using dose optimization technique as appropriate and may include automated exposure control or mA/KV adjustment according to patient size. FINDINGS: No acute lumbar spine fracture seen. No aggressive marrow pattern or malalignment. Paraspinal tissues are normal in thickness. No paraspinal abscess or hematoma seen. Intervertebral disc disease assessment is inherently limited by CT. Within these limitations, no high -grade canal stenosis suspected. IMPRESSION: No fracture of the lumbar spine is identified.
--- NOTE | 2021-08-24 21:51 | RAD REPORT ---
EXAM DESCRIPTION: RAD - Elbow Right 3 View - 08/24/2021 9:46 pm CLINICAL HISTORY: Pain COMPARISON: No comparisons FINDINGS/IMPRESSION: No acute fracture. No malalignment. No significant focal degenerative changes.
--- NOTE | 2021-08-24 22:13 | EDPHYS ---
Physician Documentation [facility] Name: Kate Ley Age: 25 yrs Sex: Female : 1995 Arrival Date: 08/24/2021 Time: 19:18 Bed 12 Private MD: ED Physician Shantanu Hernandez HPI: 08/24 20:33 This 25 yrs old Female presents to ER via Ambulatory with complaints of Fall Injury, kdr Back Pain, Hip Pain. 20:33 Details of fall: The patient fell from an upright position, while walking. Onset: The kdr symptoms/episode began/occurred suddenly, today. Associated injuries: The patient sustained Right elbow and low back. Severity of symptoms: At their worst the symptoms were moderate. The patient has not experienced similar symptoms in the past. The patient has not recently seen a physician. Patient states she was running after her child earlier today when she slipped on a plastic floor pant. She went down striking her right elbow and somehow injuring her left hip/low back. She denies head injury or any other focal concerns. 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 - Social history:: Smoking status: Reported history of juuling and/or vaping. ROS: 20:33 Constitutional: Negative for fever, chills, and weight loss, Eyes: Negative for injury, kdr pain, redness, and discharge, Neck: Negative for injury, pain, and swelling, Cardiovascular: Negative for chest pain, palpitations, and edema, Respiratory: Negative for shortness of breath, cough, wheezing, and pleuritic chest pain, Abdomen/GI: Negative for abdominal pain, nausea, vomiting, diarrhea, and constipation, : Negative for injury, bleeding, discharge, and swelling, Skin: Negative for injury, rash, and discoloration, Neuro: Negative for headache, weakness, numbness, tingling, and seizure activity. Psych: Negative for depression, anxiety, suicide ideation, homicidal ideation, and hallucinations, Allergy/Immunology: Negative for hives, rash, and allergies, Endocrine: Negative for neck swelling, polydipsia, polyuria, polyphagia, and marked weight changes, Hematologic/Lymphatic: Negative for swollen nodes, abnormal bleeding, and unusual bruising. 20:33 Back: Positive for pain at rest, pain with movement, radiated pain, of the lumbar area. 20:33 MS/extremity: Positive for injury or acute deformity, contusion, pain, paresthesias, tenderness, of the right elbow. Exam: 20:33 Constitutional: This is a well developed, well nourished patient who is awake, alert, kdr and in no acute distress. Head/Face: Normocephalic, atraumatic. Eyes: Pupils equal round and reactive to light, extra-ocular motions intact. Lids and lashes normal. Conjunctiva and sclera are non-icteric and not injected. Cornea within normal limits. Periorbital areas with no swelling, redness, or edema. Neck: Trachea midline, no thyromegaly or masses palpated, and no cervical lymphadenopathy. Supple, full range of motion without nuchal rigidity, or vertebral point tenderness. No Meningismus. Chest/axilla: Normal chest wall appearance and motion. Nontender with no deformity. No lesions are appreciated. Cardiovascular: Regular rate and rhythm with a normal S1 and S2. No gallops, murmurs, or rubs. Normal PMI, no JVD. No pulse deficits. Respiratory: Lungs have equal breath sounds bilaterally, clear to auscultation and percussion. No rales, rhonchi or wheezes noted. No increased work of breathing, no retractions or nasal flaring. Abdomen/GI: Soft, non-tender, with normal bowel sounds. No distension or tympany. No guarding or rebound. No evidence of tenderness throughout. Skin: Warm, dry with normal turgor. Normal color with no rashes, no lesions, and no evidence of cellulitis. Neuro: Awake and alert, GCS 15, oriented to person, place, time, and situation. Cranial nerves II-XII grossly intact. Motor strength 5/5 in all extremities. Sensory grossly intact. Cerebellar exam normal. Normal gait. Psych: Awake, alert, with orientation to person, place and time. Behavior, mood, and affect are within normal limits. 20:33 Back: pain, that is mild, of the lumbar area, Patient has mild low back pain and left iliac crest/sciatica pain. Vital Signs: 19:38 BP 98 / 66; Pulse 79; Resp 16; Temp 99(TE); Pulse Ox 100% on R/A; Weight 63.5 kg (R); lp1 Height 5 ft. 4 in. (162.56 cm); Pain 7/10; 22:00 BP 107 / 62; Pulse 71; Resp 16; Pulse Ox 100% on R/A; ab2 19:38 Body Mass Index 24.03 (63.50 kg, 162.56 cm) lp1 MDM: 20:33 Data reviewed: vital signs, nurses notes, lab test result(s), radiologic studies. kdr Counseling: I had a detailed discussion with the patient and/or guardian regarding: the historical points, exam findings, and any diagnostic results supporting the discharge/admit diagnosis, radiology results, the need for outpatient follow up. 22:12 Patient medically screened. kdr 08/24 20:30 Order name: CT Lumbar Spine Wo Con; Complete Time: 21:40 kdr 08/24 21:00 Order name: Elbow Right 3 View XRAY; Complete Time: 22:04 kdr Administered Medications: 21:10 Drug: Ketorolac 15 mg Route: IVP; Site: right antecubital; ab2 22:11 Follow up: Response: No adverse reaction; Pain is decreased tw5 21:10 Drug: SOLU-Medrol (methylPrednisoLONE) 125 mg Route: IVP; Site: right antecubital; ab2 22:11 Follow up: Response: No adverse reaction; Pain is decreased tw5 21:10 Drug: Flexeril (cyclobenzaprine) 10 mg Route: PO; ab2 22:11 Follow up: Response: No adverse reaction; Pain is decreased tw5 Disposition Summary: 08/24/21 22:12 Discharge Ordered Location: Home kdr Problem: new kdr Symptoms: have improved kdr Condition: Stable kdr Diagnosis - Low back pain kdr - Sciatica, left side kdr - Contusion of right elbow kdr Followup: kdr - With: Private Physician - When: 2 - 3 days - Reason: If symptoms return, Further diagnostic work-up, Recheck today's complaints, Continuance of care, Re-evaluation by your physician Discharge Instructions: - Discharge Summary Sheet kdr - Acute Back Pain, Adult kdr - Sciatica, [id number] kdr Forms: - Medication Reconciliation Form kdr - Thank You Letter kdr - Antibiotic Education kdr - Prescription Opioid Use kdr Prescriptions: - Ibuprofen 600 mg Oral Tablet - take 1 tablet by ORAL route every 6 hours As needed take with food; 15 tablet; kdr Refills: 0, Product Selection Permitted - Cyclobenzaprine 10 mg Oral Tablet - take 1 tablet by ORAL route every 8 hours As needed; 15 tablet; Refills: 0, kdr Product Selection Permitted - Medrol (Willy) 4 mg Oral Tablets, Dose Pack - take 1 tablet by ORAL route as directed - follow package instructions; 1 kdr packet; Refills: 0, Product Selection Permitted Signatures: Dispatcher [employer] Shantanu Romeo MD MD kdr Jo-Ann Jovel RN RN lp1 Mateus Gonzalez Tiffany [facility]
--- NOTE | 2021-08-24 22:13 | ER ---
Nurse's Notes [facility] Name: Kate Ley Age: 25 yrs Sex: Female : 1995 Arrival Date: 08/24/2021 Time: 19:18 Bed 12 Private MD: Diagnosis: Low back pain;Sciatica, left side;Contusion of right elbow Presentation: 08/24 19:28 Chief complaint: Patient states: Slipped and fell, hitting right arm on floor, reports lp1 pain to left flank/low back area, radiating to left hip; Pain with transition from sitting to standing. Coronavirus screen: At this time, the client does not indicate any symptoms associated with coronavirus-19. Ebola Screen: No symptoms or risks identified at this time. Risk Assessment: Do you want to hurt yourself or someone else? Patient reports no desire to harm self or others. Onset of symptoms was August 24, 2021 at 18:30. 19:28 Method Of Arrival: Ambulatory lp1 19:28 Acuity: DYLON 3 lp1 19:38 Initial Sepsis Screen: Does the patient meet any 2 criteria? No. Patient's initial lp1 sepsis screen is negative. Does the patient have a suspected source of infection? No. Patient's initial sepsis screen is negative. 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 - Social history:: Smoking status: Reported history of juuling and/or vaping. Screenin:40 Abuse screen: Denies threats or abuse. Denies injuries from another. Nutritional lp1 screening: No deficits noted. Tuberculosis screening: No symptoms or risk factors identified. Fall Risk None identified. Assessment: 19:39 General: Appears uncomfortable, Behavior is appropriate for age. Pain: Complains of lp1 pain in left low back and right arm Pain radiates to left hip Pain currently is 7 out of 10 on a pain scale. Quality of pain is described as aching, Pain began 1 hour ago. Neuro: Glaser Agitation-Sedation Scale (RASS): 0 - Alert and Calm Level of Consciousness is awake, alert, obeys commands, Oriented to person, place, time, situation. Cardiovascular: Patient's skin is warm and dry. Respiratory: Respiratory effort is even, unlabored. GI: No signs and/or symptoms were reported involving the gastrointestinal system. : No signs and/or symptoms were reported regarding the genitourinary system. EENT: No signs and/or symptoms were reported regarding the EENT system. Derm: Skin is pink, warm \T\ dry. Musculoskeletal: Circulation, motion, and sensation intact. Reports pain in left low back, left hip and right arm. 21:11 Reassessment: Patient appears in no apparent distress at this time. Pt sitting in ab2 chair, family at bedside. Denies any needs at this time. 22:10 General: Appears in no apparent distress. Behavior is calm, cooperative, appropriate tw5 for age. Pain: Denies pain. Cardiovascular: No deficits noted. Respiratory: No deficits noted. GI: No deficits noted. Vital Signs: 19:38 BP 98 / 66; Pulse 79; Resp 16; Temp 99(TE); Pulse Ox 100% on R/A; Weight 63.5 kg (R); lp1 Height 5 ft. 4 in. (162.56 cm); Pain 7/10; 22:00 BP 107 / 62; Pulse 71; Resp 16; Pulse Ox 100% on R/A; ab2 19:38 Body Mass Index 24.03 (63.50 kg, 162.56 cm) lp1 ED Course: 19:18 Patient arrived in ED. bp1 19:19 Shantanu Hernandez MD is Attending Physician. kdr 19:30 Triage completed. lp1 19:30 Arm band placed on left wrist. lp1 19:40 Patient has correct armband on for positive identification. lp1 19:43 Mateus Gonzalez is Primary Nurse. ab2 21:01 CT Lumbar Spine Wo Con In Process Unspecified. EDMS 21:11 Inserted saline lock: 20 gauge in right antecubital area, using aseptic technique. ab2 21:48 Elbow Right 3 View XRAY In Process Unspecified. EDMS 22:07 Primary Nurse role handed off by Mateus Gonzalez tw5 22:07 Viridiana Lakhani is Primary Nurse. tw5 22:10 Door closed. Moved to private room. tw5 22:17 No provider procedures requiring assistance completed. IV discontinued, intact, tw5 bleeding controlled, No redness/swelling at site. Pressure dressing applied. Administered Medications: 21:10 Drug: Ketorolac 15 mg Route: IVP; Site: right antecubital; ab2 22:11 Follow up: Response: No adverse reaction; Pain is decreased tw5 21:10 Drug: SOLU-Medrol (methylPrednisoLONE) 125 mg Route: IVP; Site: right antecubital; ab2 22:11 Follow up: Response: No adverse reaction; Pain is decreased tw5 21:10 Drug: Flexeril (cyclobenzaprine) 10 mg Route: PO; ab2 22:11 Follow up: Response: No adverse reaction; Pain is decreased tw5 Outcome: 22:12 Discharge ordered by . kdr 22:17 Discharged to home with family. tw5 22:17 Condition: good 22:17 Discharge instructions given to patient, Instructed on discharge instructions, follow up and referral plans. medication usage, Demonstrated understanding of instructions, follow-up care, medications, Prescriptions given X 3. 22:18 Patient left the ED. tw5 Signatures: Dispatcher [employer] EDMS Shantanu Hernandez MD MD kdr Jo-Ann Jovel RN RN lp1 Estefani Khan Tiffany tw5 Mateus Gonzalez2
[2021-08-24 22:58] VITALS: TEMP 99; O2SAT 100
[2021-08-24 23:00] VITALS: BP 107/62
== END 2021-08-24 22:18 | disposition home or self-care (01) ==
LOC: ER 19:16
DX: M54.32 Sciatica, left side (principal); S50.01XA Contusion of right elbow, initial encounter; W01.0XXA Fall on same level from slipping, tripping and stumbling without subsequent striking against object, initial encounter; Z88.0 Allergy status to penicillin
CPT/HCPCS: 72131; 73080; 96375; 96374; 99284; J2930

== ENCOUNTER 2022-09-08 13:57 | Emergency (ER) | payer OTHER ==
--- OUTSIDE RECORDS SUMMARY | 2022-09-08 14:26 | XMS REPORT | Continuity of Care Document ---
:[address] [facility] t Address [address] [facility] [address] [place] [address] Care Team Providers Name Role Phone Terry Wynne NP Primary Care Physician Jake Lewis Attending Clinician Unavailable TERRY WYNNE Attending Clinician Unavailable TERRY WYNNE Attending Clinician Unavailable Amina Bah MD Attending Clinician AMINA BAH Attending Clinician Unavailable Leanne Murray MD Attending Clinician Doctor Unassigned, [place] Attending Clinician Unavailable 2, [facility] Attending Clinician Unavailable Shanna Saenz MD Attending Clinician SHANNA SAENZ Attending Clinician Unavailable Shelley Olmstead RN Attending Clinician Unavailable Kaitlin Taveras Attending Clinician KAITLIN HUERTA Attending Clinician Unavailable SARIAH Attending Clinician Unavailable Amarilis Berry Attending Clinician [phone] JOHNATHAN VALENZUELA Attending Clinician Unavailable Johnathan Valenzuela PA-C Attending Clinician SIMEON Attending Clinician Unavailable Lamar Matthews Attending Clinician [phone] Regino Fernandes DO Attending Clinician Nurse, [facility] Attending Clinician Unavailable Unknown, Attending Attending Clinician Unavailable UNKNOWN, ATTENDING Attending Clinician Unavailable James MARTINEZPSanam Attending Clinician Stewart MARTINEZPTeja Attending Clinician AMINA BAH Admitting Clinician Unavailable Jake Lewis Admitting Clinician Unavailable SARIAH Admitting Clinician Unavailable SIMEON Admitting Clinician Unavailable Dmitry BECKHAM, Amina Mcgarry Admitting Clinician Payers Payer Name Policy Type Policy Number Effective Date Expiration Date Mariah blakely [facility] [id number] 2019 CHOICE MEDICAID 00:00:00 [facility] [id number] CHOICE (MEDICAID REPLACEMENT - HMO) Problems Condition Condition Condition Status Onset Resolution Last Treating Co mments Source Name Details Category Date Date Treatment Clinician Date Menstrual Menstrual Problem Active 2020-04 Swe mamta period Period 1-10 Communi late Late 00:00: ty [facility] Contracept Contracept Problem Active 2020-04 [facility] [place] ion status ion Status 1-10 Co m[facility]i not Not 00:00: ty decided Decided 00 [facility]ospita Clinics History of History of Problem Active 2020-04 [facility] [place] SARS-CoV-2 SARS-CoV-2 04-22 Co m[facility]i 00:00: ty 00 [facility] Mixed Mixed Problem Active [place] anxiety Anxiety 7- Communi and and 00:00: ty depressive Depressive 00 Ho [facility] disorder Disorder Clinics Nausea Nausea Problem Active 2021-0 [place] 7-21 [facility]: [facility] Mild Mild Disease Active 2018-04 Univers intermitte intermitte 2-30 [place] asthma [place] without 00 Medical complicati complicati Br anch on on Previous Previous Disease Active 2018-04 Unive rs 1-26 ity of section section 00:00: [address] Allergies, Adverse Reactions, Alerts Allergy Allergy Status Severity Reaction(s) Onset Inactive Treating Comm ents Source Name Type Date Date Clinician No Known DA Active [facility] Allergie 10-10 Clear s 00:00: [place] 00 [facility] No Known DA Active U [facility] Allergie 10-10 Clear s 00:00: [place] 00 [facility] Azithrom Propensi Active Shortness of Heart Univers ycin ty to Breath 08-22 raced ity of adverse 00:00: [place] reaction 00 Medical s Branch AZITHROM DRUG Active SOB Univers YCIN INGREDI 08-22 ity of 00:00: [address] Social History Social Habit Start Date Stop Date Quantity Comments Source Exposure to 2022-08-24 2022-09-03 Not sure [facility] SARS-CoV-2 00:00:00 10:23:00 [facility] (event) [place] Alcohol intake 2022-09-03 2022-09-03 0 /d University of 00:00:00 00:00:00 [facility] Tobacco use and 2021-12-02 2021-12-02 Smokeless tobacco Un iversity of exposure 00:00:00 00:00:00 non-user [facility] Sex [birth year] Universit y of 00:00:00 00:00:00 [facility] Smoking Status Start Date Stop Date Source Never smoked tobacco [facility] Medications Ordered Filled Start Stop Current Ordering Indication Dosage Frequency Signature Comments Components Source Medication Medication Date Date Medication? Clinician (SIG) Name Name hydrOXYzine Yes [id number] 25mg Take 1 U nivers 25 mg 5-15 tablet by ity of tablet 00:00: mouth [place] 00 every 8 Medical (eight) Branch hours as needed for Anxiety. Take 2 tablets nightly prn for Insomnia hydrOXYzine Yes [id number] 25mg Take 1 U nivers 25 mg 5-15 tablet by ity of tablet 00:00: mouth [place] 00 every 8 Medical (eight) Branch hours as needed for Anxiety. Take 2 tablets nightly prn for Insomnia hydrOXYzine 2022-0 Yes [id number] 25mg Take 1 U nivers 25 mg 5-15 tablet by ity of tablet 00:00: mouth [place] 00 every 8 Medical (eight) Branch hours as needed for Anxiety. Take 2 tablets nightly prn for Insomnia busPIRone 5 2022-0 Yes [id number] 5mg Take 1 Univers mg tablet 3-01 tablet by ity o f 00:00: mouth in [place] 00 the Medical morning Branch and 1 tablet in the evening. busPIRone 5 2022-0 Yes [id number] 5mg Take 1 Univers mg tablet 3-01 tablet by ity o f 00:00: mouth in [place] 00 the Medical morning Branch and 1 tablet in the evening. busPIRone 5 2022-0 Yes [id number] 5mg Take 1 Univers mg tablet 3-01 tablet by ity o f 00:00: mouth in [place] 00 the Medical morning Branch and 1 tablet in the evening. busPIRone 5 2022-0 Yes [id number] 5mg Take 1 Univers mg tablet 3-01 tablet by ity o f 00:00: mouth in [place] 00 the Medical morning Branch and 1 tablet in the evening. busPIRone 5 2022-0 2023- No [id number] 5mg Take 1 Univers mg tablet 3-04 25-13 tablet by ity of 00:00: 00:00 mouth in [place] 00 :00 the Medical morning Branch and 1 tablet in the evening. busPIRone 5 2022-0 2023- No [id number] 5mg Take 1 Univers mg tablet 3-04 25-13 tablet by ity of 00:00: 00:00 mouth in [place] 00 :00 the Medical morning Branch and 1 tablet in the evening. SERTraline 2022-0 Yes [id number] 50mg Take 1 Univers 50 mg 1-24 tablet by ity of tablet 00:00: mouth in [place] 00 the Medical morning. Branch hydrOXYzine 2022-0 Yes [id number] 25mg Take 1 Univers 25 mg 1-24 tablet by ity of tablet 00:00: mouth [place] 00 every 8 Medical (eight) Branch hours as needed for Anxiety. SERTraline 2023-0 Yes [id number] 50mg Take 1 Univers 50 mg 1-24 tablet by ity of tablet 00:00: mouth in [place] 00 the Medical morning. Branch hydrOXYzine 2023-0 Yes [id number] 25mg Take 1 Univers 25 mg 1-24 tablet by ity of tablet 00:00: mouth [place] 00 every 8 Medical (eight) Branch hours as needed for Anxiety. SERTraline 2023-0 Yes [id number] 50mg Take 1 Univers 50 mg 1-24 tablet by ity of tablet 00:00: mouth in [place] 00 the Medical morning. Branch hydrOXYzine 2023-0 Yes [id number] 25mg Take 1 Univers 25 mg 1-24 tablet by ity of tablet 00:00: mouth [place] 00 every 8 Medical (eight) Branch hours as needed for Anxiety. SERTraline 2023-0 Yes [id number] 50mg Take 1 Univers 50 mg 1-24 tablet by ity of tablet 00:00: mouth in [place] 00 the Medical morning. Branch hydrOXYzine 3-0 Yes [id number] 25mg Take 1 Univers 25 mg 1-24 tablet by ity of tablet 00:00: mouth [place] 00 every 8 Medical (eight) Branch hours as needed for Anxiety. SERTraline 2023-0 Yes [id number] 50mg Take 1 Univers 50 mg 1-24 tablet by ity of tablet 00:00: mouth in [place] 00 the Medical morning. Branch hydrOXYzine 2023-0 Yes [id number] 25mg Take 1 Univers 25 mg 1-24 tablet by ity of tablet 00:00: mouth [place] 00 every 8 Medical (eight) Branch hours as needed for Anxiety. SERTraline 2023-0 Yes [id number] 50mg Take 1 Univers 50 mg 1-24 tablet by ity of tablet 00:00: mouth in [place] 00 the Medical morning. Branch hydrOXYzine 2023-0 Yes [id number] 25mg Take 1 Univers 25 mg 1-24 tablet by ity of tablet 00:00: mouth [place] 00 every 8 Medical (eight) Branch hours as needed for Anxiety. SERTraline 2023-0 2023- No [id number] 50mg Take 1 Univers 50 mg 1-24 04-13 tablet by ity of tablet 00:00: 00:00 mouth in [place] 00 :00 the Medical morning. Branch hydrOXYzine 2022- No [id number] 25mg Take 1 Univers 25 mg 05-15 tablet by ity of tablet 00:00: 00:00 mouth [place] 00 :00 every 8 Medical (eight) Branch hours as needed for Anxiety. SERTraline 2022- No [id number] 50mg Take 1 Univers 50 mg 05-15 tablet by ity of tablet 00:00: 00:00 mouth in [place] 00 :00 the Medical morning. Branch hydrOXYzine 2022- No [id number] 25mg Take 1 Univers 25 mg 05-15 tablet by ity of tablet 00:00: 00:00 mouth [place] 00 :00 every 8 Medical (eight) Branch hours as needed for Anxiety. cyanocobala 2022- No [id number] 2000ug Univers min (DODEX) 05-09 ity of injection 17:30: 16:33 [place] 2,000 mcg 00 :00 [facility] cyanocobala 2022- No [id number] 2000ug 2,000 mcg, Univers min (DODEX) 05-09 Intramuscu i ty of injection 17:30: 16:33 [place], ONCE, [place] 2,000 mcg 00 :00 1 dose, On [facility] 05/09/22 at 1130, Routine cyanocobala 2022- No [id number] 2000ug Univers min (DODEX) 05-09 ity of injection 17:30: 16:33 [place] 2,000 mcg 00 :00 [facility] cyanocobala 2022- No [id number] 2000ug 2,000 mcg, Univers min (DODEX) 05-09 Intramuscu i ty of injection 17:30: 16:33 lar, ONCE, [place] 2,000 mcg 00 :00 1 dose, On [facility] 05/09/22 at 1130, Routine No known No No known Unive rs medications 18 medication it y of 10:12: s [place] 52 [facility] busPIRone Yes [id number] 10mg Take 1 U nivers 10 mg 18 tablet by ity of tablet 00:00: mouth in [place] 00 the Medical morning Branch and 1 tablet in the evening. busPIRone 3-0 Yes [id number] 10mg Take 1 U nivers 10 mg 1-18 tablet by ity of tablet 00:00: mouth in [place] 00 the Medical morning Branch and 1 tablet in the evening. busPIRone 3-0 Yes [id number] 10mg Take 1 U nivers 10 mg 1-18 tablet by ity of tablet 00:00: mouth in [place] 00 the Medical morning Branch and 1 tablet in the evening. busPIRone 3-0 Yes [id number] 10mg Take 1 U nivers 10 mg 1-18 tablet by ity of tablet 00:00: mouth in [place] 00 the Medical morning Branch and 1 tablet in the evening. busPIRone 2022-0 3- No [id number] 10mg Take 1 Univers 10 mg 1-18 -24 tablet by ity of tablet 00:00: 00:00 mouth in [place] 00 :00 the Medical morning Branch and 1 tablet in the evening. cyanocobala 2022-0 2022- No [id number] 2000ug 2 mL by Univers min 1,000 1-18 01-18 Intramuscu ity of mcg/mL 00:00: 00:00 lar route [place] injection 00 :00 once now Medica l for 1 Branch dose. cyanocobala 2022-0 2022- No [id number] 2000ug 2 mL by Univers min 1,000 1-18 01-18 Intramuscu ity of mcg/mL 00:00: 00:00 lar route [place] injection 00 :00 once now Medica l for 1 Branch dose. albuterol Yes [id number] 2{puff} Inhale 2 Univers 90 8-22 Puffs ity of mcg/actuati 00:00: every 6 [place] on inhaler 00 (six) Medical hours as Branch needed for Wheezing. fluticasone 2021-0 Yes [id number] 1{spray Use 1 Univers propionate 8-22 } [place] in ity o f 50 00:00: each [place] mcg/actuati 00 nostril in Al dical on nasal the Branch spray morning. albuterol 0 Yes [id number] 2{puff} Inhale 2 Univers 90 8-22 Puffs ity of mcg/actuati 00:00: every 6 [place] on inhaler 00 (six) Medical hours as Branch needed for Wheezing. fluticasone Yes [id number] 1{spray Use 1 Univers propionate 8-22 } [place] in ity o f 50 00:00: each [place] mcg/actuati 00 nostril in Me dical on nasal the Branch spray morning. albuterol Yes [id number] 2{puff} Inhale 2 Univers 90 8-22 Puffs ity of mcg/actuati 00:00: every 6 [place] on inhaler 00 (six) Medical hours as Branch needed for Wheezing. fluticasone Yes [id number] 1{spray Use 1 Univers propionate 8-22 } [place] in ity o f 50 00:00: each [place] mcg/actuati 00 nostril in Me dical on nasal the Branch spray morning. albuterol 2022- No [id number] 2{puff} Inhale 2 Univers 90 8-22 01-18 Puffs ity of mcg/actuati 00:00: 00:00 every 6 [place] on inhaler 00 :00 (six) Medical hours as Branch needed for Wheezing. fluticasone 2022- No [id number] 1{spray Use 1 Univers propionate 8-22 01-18 } [place] in ity of 50 00:00: 00:00 each [place] mcg/actuati 00 :00 nostril in Me dical on nasal the Branch spray morning. albuterol 2022- No [id number] 2{puff} Inhale 2 Univers 90 8-22 01-18 Puffs ity of mcg/actuati 00:00: 00:00 every 6 [place] on inhaler 00 :00 (six) Medical hours as Branch needed for Wheezing. fluticasone 2022- No [id number] 1{spray Use 1 Univers propionate 8-22 01-18 } [place] in ity of 50 00:00: 00:00 each [place] mcg/actuati 00 :00 nostril in Me dical on nasal the Branch spray morning. amoxicillin 2021- No [id number] 1{tbl} Take 1 Univers -clavulanat 8-22 08-30 tablet by it y of e 00:00: 04:59 mouth in [place] (AUGMENTIN) 00 :00 the Medical 875-125 mg morning Branch per tablet and 1 tablet in the evening. Do all this for 7 days. amoxicillin 2021- No [id number] 1{tbl} Take 1 Univers -clavulanat 8-22 08-30 tablet by it y of e 00:00: 04:59 mouth in [place] (AUGMENTIN) 00 :00 the Medical 875-125 mg morning Branch per tablet and 1 tablet in the evening. Do all this for 7 days. bromphenira Yes [id number] 10mL Take 10 mL Univers mine-pseudo 8-14 by mouth 4 it y of ephedrine-D 00:00: (four) [place] M (BROMFED 00 times Medical DM) 2-30-10 daily as Bran ch mg/5 mL needed for syrup Congestion /Allergies , Cold symptoms or Cough. bromphenira Yes [id number] 10mL Take 10 mL Univers mine-pseudo 8-14 by mouth 4 it y of ephedrine-D 00:00: (four) [place] M (BROMFED 00 times Medical DM) 2-30-10 daily as Bran ch mg/5 mL needed for syrup Congestion /Allergies , Cold symptoms or Cough. bromphenira Yes [id number] 10mL Take 10 mL Univers mine-pseudo 8-14 by mouth 4 it y of ephedrine-D 00:00: (four) [place] M (BROMFED 00 times Medical DM) 2-30-10 daily as Bran ch mg/5 mL needed for syrup Congestion /Allergies , Cold symptoms or Cough. bromphenira 0 Yes [id number] 10mL Take 10 mL Univers mine-pseudo 8-14 by mouth 4 it y of ephedrine-D 00:00: (four) [place] M (BROMFED 00 times Medical DM) 2-30-10 daily as Bran ch mg/5 mL needed for syrup Congestion /Allergies , Cold symptoms or Cough. bromphenira 0 Yes [id number] 10mL Take 10 mL Univers mine-pseudo 8-14 by mouth 4 it y of ephedrine-D 00:00: (four) [place] M (BROMFED 00 times Medical DM) 2-30-10 daily as Bran ch mg/5 mL needed for syrup Congestion /Allergies , Cold symptoms or Cough. bromphenira 2021-0 2022- No [id number] 10mL Take 10 mL Univers mine-pseudo 12-0318 by mouth 4 i ty of ephedrine-D 00:00: 00:00 (four) [place] M (BROMFED 00 :00 times Medical DM) 2-30-10 daily as Bran ch mg/5 mL needed for syrup Congestion /Allergies , Cold symptoms or Cough. bromphenira 2021-0 2022- No [id number] 10mL Take 10 mL Univers mine-pseudo 12-0318 by mouth 4 i ty of ephedrine-D 00:00: 00:00 (four) [place] M (BROMFED 00 :00 times Medical DM) 2-30-10 daily as Bran ch mg/5 mL needed for syrup Congestion /Allergies , Cold symptoms or Cough. clonazePAM 2022-0 Yes TAKE 1 Unive rs 0.5 mg 5-18 TABLET BY ity of tablet 00:00: MOUTH 00 EVERY DAY Medical FOR 15 Branch DAYS NEEDED clonazePAM 2022-0 Yes TAKE 1 Unive rs 0.5 mg 5-18 TABLET BY ity of tablet 00:00: MOUTH 00 EVERY DAY Medical FOR 15 Branch DAYS NEEDED clonazePAM 2022-0 Yes TAKE 1 Unive rs 0.5 mg 5-18 TABLET BY ity of tablet 00:00: MOUTH 00 EVERY DAY Medical FOR 15 Branch DAYS NEEDED clonazePAM 2022-0 Yes TAKE 1 Unive rs 0.5 mg 5-18 TABLET BY ity of tablet 00:00: MOUTH 00 EVERY DAY Medical FOR 15 Branch DAYS NEEDED clonazePAM 2022-0 Yes TAKE 1 Unive rs 0.5 mg 5-18 TABLET BY ity of tablet 00:00: MOUTH 00 EVERY DAY Medical FOR 15 Branch DAYS NEEDED clonazePAM 2022-0 Yes TAKE 1 Unive rs 0.5 mg 5-18 TABLET BY ity of tablet 00:00: MOUTH 00 EVERY DAY Medical FOR 15 Branch DAYS NEEDED clonazePAM 2022-0 Yes TAKE 1 Unive rs 0.5 mg 5-18 TABLET BY ity of tablet 00:00: MOUTH [place] 00 EVERY DAY Medical FOR 15 Branch DAYS NEEDED clonazePAM 2022-0 2023- No TAKE 1 Univ ers 0.5 mg 5-18 01-18 TABLET BY ity of tablet 00:00: 00:00 MOUTH [place] 00 :00 EVERY DAY Medical FOR 15 Branch DAYS NEEDED clonazePAM 0 2022- No TAKE 1 Univ ers 0.5 mg 5-18 05-09 TABLET BY ity of tablet 00:00: 00:00 MOUTH [place] 00 :00 EVERY DAY Medical FOR 15 Branch DAYS NEEDED NUVARING Yes [id number] 1{each} Insert 1 Univers 0.12-0.015 2-17 Each into ity of mg/24 hr 00:00: vagina [place] vaginal 00 once every Medica l insert month. Branch Insert vaginally and leave in place for 3 consecutiv e weeks, then remove for 1 week. NUVARING Yes [id number] 1{each} Insert 1 Univers 0.12-0.015 2-17 Each into ity of mg/24 hr 00:00: vagina [place] vaginal 00 once every Medica l insert month. Branch Insert vaginally and leave in place for 3 consecutiv e weeks, then remove for 1 week. NUVARING Yes [id number] 1{each} Insert 1 Univers 0.12-0.015 2-17 Each into ity of mg/24 hr 00:00: vagina [place] vaginal 00 once every Medica l insert month. Branch Insert vaginally and leave in place for 3 consecutiv e weeks, then remove for 1 week. NUVARING Yes [id number] 1{each} Insert 1 Univers 0.12-0.015 2-17 Each into ity of mg/24 hr 00:00: vagina [place] vaginal 00 once every Medica l insert month. Branch Insert vaginally and leave in place for 3 consecutiv e weeks, then remove for 1 week. NUVARING Yes [id number] 1{each} Insert 1 Univers 0.12-0.015 2-17 Each into ity of mg/24 hr 00:00: vagina [place] vaginal 00 once every Medica l insert month. Branch Insert vaginally and leave in place for 3 consecutiv e weeks, then remove for 1 week. NUVARING Yes [id number] 1{each} Insert 1 Univers 0.12-0.015 2-17 Each into ity of mg/24 hr 00:00: vagina [place] vaginal 00 once every Medica l insert month. Branch Insert vaginally and leave in place for 3 consecutiv e weeks, then remove for 1 week. NUVARING Yes [id number] 1{each} Insert 1 Univers 0.12-0.015 2-17 Each into ity of mg/24 hr 00:00: vagina [place] vaginal 00 once every Medica l insert month. Branch Insert vaginally and leave in place for 3 consecutiv e weeks, then remove for 1 week. NUVARING Yes [id number] 1{each} Insert 1 Univers 0.12-0.015 2-17 Each into ity of mg/24 hr 00:00: vagina [place] vaginal 00 once every Medica l insert month. Branch Insert vaginally and leave in place for 3 consecutiv e weeks, then remove for 1 week. NUVARING 2022- No [id number] 1{each} Insert 1 Univers 0.12-0.015 2-17 -18 Each into ity of mg/24 hr 00:00: 00:00 vagina [place] vaginal 00 :00 once every Medica l insert month. Branch Insert vaginally and leave in place for 3 consecutiv e weeks, then remove for 1 week. NUVARING 2022- No [id number] 1{each} Insert 1 Univers 0.12-0.015 2-17 -18 Each into ity of mg/24 hr 00:00: 00:00 vagina [place] vaginal 00 :00 once every Medica l insert month. Branch Insert vaginally and leave in place for 3 consecutiv e weeks, then remove for 1 week. paroxetine paroxetine 2020-04 No paroxetine [place] 10 mg 10 mg 1-10 10 mg Communi tablet TAKE tablet TAKE 00:00: tablet ty 1 TABLET BY 1 TABLET BY 00 TAKE 1 Hospita MOUTH EVERY MOUTH EVERY TABLET BY l DAY DAY MOUTH Clinics DIRECTED DIRECTED EVERY DAY DIRECTED albuterol 2018-04 Yes 2{puff} Inhale 2 U nivers 90 2-10 Puffs ity of mcg/actuati 00:00: every 6 [place] on inhaler 00 (six) Medical hours as Branch needed for Wheezing or Shortness of Breath. albuterol 2018-04 Yes 2{puff} Inhale 2 U nivers 90 2-10 Puffs ity of mcg/actuati 00:00: every 6 [place] on inhaler 00 (six) Medical hours as Branch needed for Wheezing or Shortness of Breath. albuterol 2018-04 Yes 2{puff} Inhale 2 U nivers 90 2-10 Puffs ity of mcg/actuati 00:00: every 6 [place] on inhaler 00 (six) Medical hours as Branch needed for Wheezing or Shortness of Breath. albuterol 2018-04 Yes 2{puff} Inhale 2 U nivers 90 2-10 Puffs ity of mcg/actuati 00:00: every 6 [place] on inhaler 00 (six) Medical hours as Branch needed for Wheezing or Shortness of Breath. albuterol 2018-04 Yes 2{puff} Inhale 2 U nivers 90 2-10 Puffs ity of mcg/actuati 00:00: every 6 [place] on inhaler 00 (six) Medical hours as Branch needed for Wheezing or Shortness of Breath. albuterol 2018-04- No 2{puff} Inhale 2 Univers 90 2-10 08-22 Puffs ity of mcg/actuati 00:00: 00:00 every 6 [place] on inhaler 00 :00 (six) Medical hours as Branch needed for Wheezing or Shortness of Breath. ondansetron ondansetron No 1 Q12H ondansetro [place] 4 mg 4 mg n 4 mg Communi disintegrat disintegrat disintegra ty ing tablet ing tablet ting [facility] 1 Place 1 tablet l tablet tablet Place 1 Clinics every 12 every 12 tablet hours by hours by every 12 translingua translingua hours by l route as l route as translingu needed for needed for al route 14 days. 14 days. as needed for 14 days. Paxil 10 mg Paxil 10 mg No 1 Q1D Paxil 10 [place] tablet Take tablet Take mg tablet Communi 1 tablet 1 tablet Take 1 ty every day every day tablet [facility] by oral by oral every day l route as route as by oral Clin ics directed directed route as for 30 for 30 directed days. days. for 30 days. ondansetron ondansetron No 1 Q12H ondansetro [place] 4 mg 4 mg n 4 mg Communi disintegrat disintegrat disintegra ty ing tablet ing tablet ting [facility] 1 Place 1 tablet l tablet tablet Place 1 Clinics every 12 every 12 tablet hours by hours by every 12 translingua translingua hours by l route as l route as translingu needed for needed for al route 14 days. 14 days. as needed for 14 days. Paxil 10 mg Paxil 10 mg No 1 Q1D Paxil 10 [place] tablet Take tablet Take mg tablet Communi 1 tablet 1 tablet Take 1 ty every day every day tablet [facility] by oral by oral every day l route as route as by oral Clin ics directed directed route as for 30 for 30 directed days. days. for 30 days. amoxicillin amoxicillin No amoxicilli [place] 400 mg/5 mL 400 mg/5 mL n 400 mg/5 Communi oral oral mL oral ty suspension suspension suspension Hospita TAKE 6.25 TAKE 6.25 TAKE 6.25 l ML BY MOUTH ML BY MOUTH ML BY Clinics EVERY 8 EVERY 8 MOUTH HOURS FOR 7 HOURS FOR 7 EVERY 8 DAYS DAYS HOURS FOR 7 DAYS Medrol Medrol No 1dose Medrol [place] (Willy) 4 mg (Willy) 4 mg pk(s) (Willy) 4 mg Communi tablets in tablets in tablets in ty a dose pack a dose pack a dose Hospita Take 1 dose Take 1 dose pack Take l pk by oral pk by oral 1 dose pk Clinics route as route as by oral directed directed route as for 6 days. for 6 days. directed for 6 days. paroxetine paroxetine No paroxetine [place] 10 mg 10 mg 10 mg Communi tablet TAKE tablet TAKE tablet ty 1 TABLET BY 1 TABLET BY TAKE 1 Hospita MOUTH EVERY MOUTH EVERY TABLET BY l DAY DAY MOUTH Clinics DIRECTED DIRECTED EVERY DAY DIRECTED amoxicillin amoxicillin No amoxicilli [place] 400 mg/5 mL 400 mg/5 mL n 400 mg/5 Communi oral oral mL oral ty suspension suspension suspension Hospita SHAKE SHAKE SHAKE l LIQUID AND LIQUID AND LIQUID AND Clinics TAKE 6.25 TAKE 6.25 TAKE 6.25 ML BY MOUTH ML BY MOUTH ML BY EVERY 8 EVERY 8 MOUTH HOURS FOR 7 HOURS FOR 7 EVERY 8 DAYS. DAYS. HOURS FOR DISCARD DISCARD 7 DAYS. REMAINDER REMAINDER DISCARD REMAINDER ivermectin ivermectin No 1 BID ivermectin [place] 3 mg tablet 3 mg tablet 3 mg C ommuni Take 1 Take 1 tablet ty tablet tablet Take 1 Hospita twice a day twice a day tablet l by oral by oral twice a Clinic s route as route as day by directed directed oral route for 5 days. for 5 days. as directed for 5 days. methylpredn methylpredn No methylpred [place] isolone 4 isolone 4 nisolone 4 Communi mg tablets mg tablets mg tablets ty in a dose in a dose in a dose Hospita pack FOLLOW pack FOLLOW pack l PACKAGE PACKAGE FOLLOW Clinics DIRECTIONS DIRECTIONS PACKAGE DIRECTIONS paroxetine paroxetine No paroxetine [place] 10 mg 10 mg 10 mg Communi tablet TAKE tablet TAKE tablet ty 1 TABLET BY 1 TABLET BY TAKE 1 Hospita MOUTH EVERY MOUTH EVERY TABLET BY l DAY DAY MOUTH Clinics DIRECTED DIRECTED EVERY DAY DIRECTED prednisone prednisone No 1 BID prednisone [place] 20 mg 20 mg 20 mg Communi tablet Take tablet Take tablet ty 1 tablet 1 tablet Take 1 Hospi ta twice a day twice a day tablet l by oral by oral twice a Clinic s route as route as day by directed directed oral route for 7 days. for 7 days. as directed for 7 days. Zithromax Zithromax No Zithromax [place] Z-Willy 250 Z-Willy 250 Z-Willy 250 Communi mg tablet mg tablet mg tablet ty TAKE 2 TAKE 2 TAKE 2 Hospita TABLETS TABLETS TABLETS l (500 MG) BY (500 MG) BY (500 MG) Clinics ORAL ROUTE ORAL ROUTE BY ORAL ONCE DAILY ONCE DAILY ROUTE ONCE FOR 1 DAY FOR 1 DAY DAILY FOR THEN 1 THEN 1 1 DAY THEN TABLET (250 TABLET (250 1 TABLET MG) BY ORAL MG) BY ORAL (250 MG) ROUTE ONCE ROUTE ONCE BY ORAL DAILY FOR 4 DAILY FOR 4 ROUTE ONCE DAYS DAYS DAILY FOR 4 DAYS paroxetine paroxetine No paroxetine [facility] 10 mg 10 mg 10 mg Communi tablet TAKE tablet TAKE tablet ty 1 TABLET BY 1 TABLET BY TAKE 1 Hospita MOUTH EVERY MOUTH EVERY TABLET BY l DAY DAY MOUTH Clinics DIRECTED DIRECTED EVERY DAY DIRECTED Zithromax Zithromax No Zithromax [place] Z-Willy 250 Z-Willy 250 Z-Willy 250 Communi mg tablet mg tablet mg tablet ty TAKE 2 TAKE 2 TAKE 2 Hospita TABLETS TABLETS TABLETS l (500 MG) BY (500 MG) BY (500 MG) Clinics ORAL ROUTE ORAL ROUTE BY ORAL ONCE DAILY ONCE DAILY ROUTE ONCE FOR 1 DAY FOR 1 DAY DAILY FOR THEN 1 THEN 1 1 DAY THEN TABLET (250 TABLET (250 1 TABLET MG) BY ORAL MG) BY ORAL (250 MG) ROUTE ONCE ROUTE ONCE BY ORAL DAILY FOR 4 DAILY FOR 4 ROUTE ONCE DAYS DAYS DAILY FOR 4 DAYS escitalopra escitalopra No 1 Q1D escitalopr [place] m 10 mg m 10 mg am 10 mg Commu ni tablet Take tablet Take tablet ty 1 tablet 1 tablet Take 1 Hospi ta every day every day tablet l by oral by oral every day Clin ics route for route for by oral 90 days. 90 days. route for 90 days. Klonopin Klonopin No 1 Q1D Klonopin Swe mamta 0.5 mg 0.5 mg 0.5 mg Communi tablet Take tablet Take tablet ty 1 tablet 1 tablet Take 1 Hospi ta every day every day tablet l by oral by oral every day Clin ics route as route as by oral needed for needed for route as 15 days. 15 days. needed for 15 days. amoxicillin amoxicillin No 6.25mL Q8H amoxicilli [place] 400 mg/5 mL 400 mg/5 mL n 400 mg/5 Communi oral oral mL oral ty suspension suspension suspension Hospita Take 6.25 Take 6.25 Take 6.25 l mL every 8 mL every 8 mL every 8 Clinics hours by hours by hours by oral route oral route oral route as directed as directed as for 7 days. for 7 days. directed for 7 days. Immunizations Ordered Filled Immunization Date Status Comments [facility] e Immunization Name Name influenza, influenza, 2020-02-04 Completed [place] ty injectable, injectable, 00:00:00 [facility] Cli nics quadrivalent quadrivalent influenza, influenza, 2020-02-04 Completed [place] injectable, injectable, 00:00:00 [facility] Cli n[facility] quadrivalent quadrivalent influenza, influenza, 2020-02-04 Completed [place] ty injectable, injectable, 00:00:00 [facility] Cli n[facility] quadrivalent quadrivalent influenza, influenza, 2020-02-04 Completed [place] ty injectable, injectable, 00:00:00 [facility] Cli n[facility] quadrivalent quadrivalent influenza, influenza, 2020-02-04 Completed [place] injectable, injectable, 00:00:00 [facility] Cli n[facility] quadrivalent quadrivalent influenza, influenza, 2020-02-04 Completed [facility] injectable, injectable, 00:00:00 [facility] Cli n[facility] quadrivalent quadrivalent influenza, influenza, 2020-02-04 Completed [facility] injectable, injectable, 00:00:00 [facility] Cli nics quadrivalent quadrivalent influenza, influenza, 2020-02-04 Completed [facility] ty injectable, injectable, 00:00:00 [facility] Cli n[facility] quadrivalent quadrivalent influenza, influenza, 2020-02-04 Completed [place] injectable, injectable, 00:00:00 [facility] Cli n[facility] quadrivalent quadrivalent Influenza Virus 2020-02-04 Completed [facility] Vaccine [facility] IM 00:00:00 [facility] Influenza Virus 2020-02-04 Completed [facility] Vaccine [facility] IM 00:00:00 [facility] Influenza Virus 2020-02-04 Completed [facility] Vaccine [facility] IM 00:00:00 [facility] Influenza Virus 2020-02-04 Completed [facility] Vaccine [facility] IM 00:00:00 [facility]dose [facility] Influenza Virus 2020-02-04 Completed [facility] Vaccine [facility] IM 00:00:00 [facility] Influenza Virus 2020-02-04 Completed [facility] Vaccine [facility] IM 00:00:00 [facility] Influenza Virus 2020-02-04 Completed [facility] Vaccine [facility] IM 00:00:00 [facility] Influenza Virus 2020-02-04 Completed [facility] Vaccine [facility] IM 00:00:00 [facility] Influenza Virus 2020-02-04 Completed [facility] Vaccine Quad IM 00:00:00 [facility]dose [facility] Influenza Virus 2020-02-04 Completed [facility] Vaccine [facility] IM 00:00:00 [facility] Influenza Virus 2020-02-04 Completed [facility] Vaccine Quad IM 00:00:00 [facility]dose [facility] Influenza Virus 2020-02-04 Completed [facility] Vaccine [facility] IM 00:00:00 [facility]dose [facility] Influenza Virus 2020-02-04 Completed [facility] Vaccine [facility] IM 00:00:00 [facility] Multi-dose 6+ [facility] Influenza Virus 2020-02-04 Completed [facility] of Vaccine Quad IM 00:00:00 [facility] Multi-dose 6+ [facility] Influenza Virus 2020-02-04 Completed [facility] Vaccine Quad IM 00:00:00 [facility] Multi-dose 6+ [facility] Influenza Virus 2020-02-04 Completed [facility] y of Vaccine Quad IM 00:00:00 [facility] Multi-dose 6+ [facility] Influenza Virus 2020-02-04 Completed [facility] of Vaccine [facility] IM 00:00:00 [facility] Multi-dose 6+ [facility] Influenza Virus 2020-02-04 Completed [facility] of Vaccine Quad IM 00:00:00 [facility] Multi-dose 6+ [facility] Influenza Virus 2020-02-04 Completed [facility] of Vaccine Quad IM 00:00:00 [facility] Multi-dose 6+ [facility] Influenza Virus 2020-02-04 Completed [facility] of Vaccine Quad IM 00:00:00 [facility] Multi-dose 6+ [facility] Influenza Virus 2020-02-04 Completed [facility] of Vaccine Quad IM 00:00:00 [facility] Multi-dose 6+ [facility] Influenza Virus 2020-02-04 Completed [facility] of Vaccine Quad IM 00:00:00 [facility] Multi-dose 6+ [facility] Influenza Virus 2020-02-04 Completed [facility] of Vaccine Quad IM 00:00:00 [facility] Multi-dose 6+ [facility] Influenza Virus 2020-02-04 Completed [facility] Vaccine [facility] IM 00:00:00 [facility] Multi-dose 6[facility] Influenza Virus 2019-03-17 Completed [facility] Vaccine Quad .5 mL 00:00:00 [facility] Influenza Virus 2019-03-17 Completed [facility] of Vaccine Quad .5 mL 00:00:00 [facility] 6[facility] MO [facility] Influenza Virus 2019-03-17 Completed [facility] of Vaccine Quad .5 mL 00:00:00 [facility] 6[facility] MO [facility] Influenza Virus 2019-03-17 Completed [facility] y of Vaccine Quad .5 mL 00:00:00 [facility] 6[facility] Influenza Virus 2019-03-17 Completed [facility] of Vaccine Quad .5 mL 00:00:00 [facility] 6[facility] Influenza Virus 2019-03-17 Completed [facility] of Vaccine Quad .5 mL 00:00:00 [facility] 6[facility] Influenza Virus 2019-03-17 Completed [facility] of Vaccine Quad .5 mL 00:00:00 [facility] 6[facility] Influenza Virus 2019-03-17 Completed [facility] y of Vaccine Quad .5 mL 00:00:00 [facility] 6[facility] Influenza Virus 2019-03-17 Completed [facility] of Vaccine Quad .5 mL 00:00:00 [facility] 6[facility] Influenza Virus 2019-03-17 Completed [facility] y of Vaccine Quad .5 mL 00:00:00 [facility] 6[facility] Influenza Virus 2019-03-17 Completed [facility] y of Vaccine Quad .5 mL 00:00:00 [facility] 6[facility] Influenza Virus 2019-03-17 Completed [facility] y of Vaccine Quad .5 mL 00:00:00 [facility] 6[facility] Influenza Virus 2019-03-17 Completed [facility] y of Vaccine Quad .5 mL 00:00:00 [facility] 6[facility] Influenza Virus 2019-03-17 Completed [facility] y of Vaccine Quad .5 mL 00:00:00 [facility] 6[facility] Influenza Virus 2019-03-17 Completed [facility] y of Vaccine Quad .5 mL 00:00:00 [facility] 6[facility] Influenza Virus 2019-03-17 Completed [facility] y of Vaccine Quad .5 mL 00:00:00 [facility] 6[facility] Influenza Virus 2019-03-17 Completed [facility] y of Vaccine Quad .5 mL 00:00:00 [facility] 6[facility] Influenza Virus 2019-03-17 Completed [facility] y of Vaccine Quad .5 mL 00:00:00 [facility] 6[facility] Influenza Virus 2019-03-17 Completed [facility] y of Vaccine Quad .5 mL 00:00:00 [facility] 6[facility] Influenza Virus 2019-03-17 Completed [facility] y of Vaccine Quad .5 mL 00:00:00 [facility] 6[facility] Influenza Virus 2019-03-17 Completed [facility] y of Vaccine Quad .5 mL 00:00:00 [facility] 6[facility] Influenza Virus 2019-03-17 Completed [facility] y of Vaccine Quad .5 mL 00:00:00 [facility] 6[facility] Influenza Virus 2019-03-17 Completed [facility]it y of Vaccine Quad .5 mL 00:00:00 [facility] IM 6+ MO Branch Influenza Virus 2019-03-17 Completed Universit y of Vaccine Quad .5 mL 00:00:00 [facility] IM 6+ MO Branch TDAP (ADACEL) 2016-02-13 Completed University of VACCINE 00:00:00 [facility] TDAP (ADACEL) 2016-02-13 Completed University of VACCINE 00:00:00 [facility] TDAP (ADACEL) 2016-02-13 Completed University of VACCINE 00:00:00 [facility] TDAP (ADACEL) 2016-02-13 Completed University of VACCINE 00:00:00 [facility] TDAP (ADACEL) 2016-02-13 Completed University of VACCINE 00:00:00 [facility] TDAP (ADACEL) 2016-02-13 Completed University of VACCINE 00:00:00 [facility] TDAP (ADACEL) 2016-02-13 Completed University of VACCINE 00:00:00 [facility] TDAP (ADACEL) 2016-02-13 Completed University of VACCINE 00:00:00 [facility] TDAP (ADACEL) 2016-02-13 Completed University of VACCINE 00:00:00 [facility] TDAP (ADACEL) 2016-02-13 Completed University of VACCINE 00:00:00 [facility] TDAP (ADACEL) 2016-02-13 Completed University of VACCINE 00:00:00 [facility] TDAP (ADACEL) 2016-02-13 Completed University of VACCINE 00:00:00 [facility] TDAP (ADACEL) 2016-02-13 Completed University of VACCINE 00:00:00 [facility] TDAP (ADACEL) 2016-02-13 Completed University of VACCINE 00:00:00 [facility] TDAP (ADACEL) 2016-02-13 Completed University of VACCINE 00:00:00 [facility] TDAP (ADACEL) 2016-02-13 Completed University of VACCINE 00:00:00 [facility] TDAP (ADACEL) 2016-02-13 Completed University of VACCINE 00:00:00 [facility] Branch TDAP (ADACEL) 2016-02-13 Completed University of VACCINE 00:00:00 [facility] TDAP (ADACEL) 2016-02-13 Completed University of VACCINE 00:00:00 [facility] TDAP (ADACEL) 2016-02-13 Completed University of VACCINE 00:00:00 [facility] TDAP (ADACEL) 2016-02-13 Completed University of VACCINE 00:00:00 [facility] TDAP (ADACEL) 2016-02-13 Completed University of VACCINE 00:00:00 [facility] TDAP (ADACEL) 2016-02-13 Completed University of VACCINE 00:00:00 [facility] TDAP (ADACEL) 2016-02-13 Completed University of VACCINE 00:00:00 [facility] MMR 2015-08-25 Completed University of 00:00:00 [facility] MMR 2015-08-25 Completed University of 00:00:00 [facility] MMR 2015-08-25 Completed University of 00:00:00 [facility] MMR 2015-08-25 Completed University of 00:00:00 [facility] MMR 2015-08-25 Completed University of 00:00:00 [facility] MMR 2015-08-25 Completed University of 00:00:00 [facility] MMR 2015-08-25 Completed University of 00:00:00 [facility] MMR 2015-08-25 Completed University of 00:00:00 [facility] MMR 2015-08-25 Completed University of 00:00:00 [facility] MMR 2015-08-25 Completed University of 00:00:00 [facility] MMR 2015-08-25 Completed University of 00:00:00 [facility] MMR 2015-08-25 Completed University of 00:00:00 [facility] MMR 2015-08-25 Completed University of 00:00:00 [facility] MMR 2015-08-25 Completed University of 00:00:00 [facility] MMR 2015-08-25 Completed University of 00:00:00 [facility] MMR 2015-08-25 Completed University of 00:00:00 [facility] MMR 2015-08-25 Completed University of 00:00:00 [facility] MMR 2015-08-25 Completed University of 00:00:00 [facility] MMR 2015-08-25 Completed University of 00:00:00 [facility] MMR 2015-08-25 Completed University of 00:00:00 [facility] MMR 2015-08-25 Completed University of 00:00:00 [facility] MMR 2015-08-25 Completed University of 00:00:00 [facility] MMR 2015-08-25 Completed University of 00:00:00 [facility] MMR 2015-08-25 Completed University of 00:00:00 [facility] HPV 2009-02-12 Completed University of 00:00:00 [facility] HPV 2009-02-12 Completed University of 00:00:00 [facility] HPV 2009-02-12 Completed University of 00:00:00 [facility] HPV 2009-02-12 Completed University of 00:00:00 [facility] HPV 2009-02-12 Completed University of 00:00:00 [facility] HPV 2009-02-12 Completed University of 00:00:00 [facility] HPV 2009-02-12 Completed University of 00:00:00 [facility] HPV 2009-02-12 Completed University of 00:00:00 [facility] HPV 2009-02-12 Completed University of 00:00:00 [facility] HPV 2009-02-12 Completed University of 00:00:00 [facility] HPV 2009-02-12 Completed University of 00:00:00 [facility] HPV 2009-02-12 Completed [facility] of 00:00:00 [facility] HPV 2009-02-12 Completed University of 00:00:00 [facility] HPV 2009-02-12 Completed University of 00:00:00 [facility] HPV 2009-02-12 Completed [facility] of 00:00:00 [facility] HPV 2009-02-12 Completed [facility] of 00:00:00 [facility] HPV 2009-02-12 Completed [facility] of 00:00:00 [facility] HPV 2009-02-12 Completed University of 00:00:00 [facility] HPV 2009-02-12 Completed [facility] of 00:00:00 [facility] HPV 2009-02-12 Completed [facility] of 00:00:00 [facility] HPV 2009-02-12 Completed [facility] of 00:00:00 [facility] HPV 2009-02-12 Completed [facility] of 00:00:00 [facility] HPV 2009-02-12 Completed [facility] of 00:00:00 [facility] HPV 2009-02-12 Completed [facility] of 00:00:00 [facility] HPV 2008-02-13 Completed [facility] of 00:00:00 [facility] HPV 2008-02-13 Completed [facility] of 00:00:00 [facility] HPV 2008-02-13 Completed [facility] of 00:00:00 [facility] HPV 2008-02-13 Completed [facility] of 00:00:00 [facility] HPV 2008-02-13 Completed [facility] of 00:00:00 [facility] HPV 2008-02-13 Completed University of 00:00:00 [facility] HPV 2008-02-13 Completed University of 00:00:00 [facility] HPV 2008-02-13 Completed [facility] of 00:00:00 [facility] HPV 2008-02-13 Completed [facility] of 00:00:00 [facility] HPV 2008-02-13 Completed [facility] of 00:00:00 [facility] HPV 2008-02-13 Completed University of 00:00:00 [facility] HPV 2008-02-13 Completed University of 00:00:00 [facility] HPV 2008-02-13 Completed University of 00:00:00 [facility] HPV 2008-02-13 Completed University of 00:00:00 [facility] HPV 2008-02-13 Completed [facility] of 00:00:00 [facility] HPV 2008-02-13 Completed [facility] of 00:00:00 [facility] HPV 2008-02-13 Completed University of 00:00:00 [facility] HPV 2008-02-13 Completed University of 00:00:00 [facility] HPV 2008-02-13 Completed University of 00:00:00 [facility] HPV 2008-02-13 Completed University of 00:00:00 [facility] HPV 2008-02-13 Completed University of 00:00:00 [facility] HPV 2008-02-13 Completed University of 00:00:00 [facility] HPV 2008-02-13 Completed University of 00:00:00 [facility] HPV 2008-02-13 Completed University of 00:00:00 [facility] DTP 1996-04-27 Completed University of 00:00:00 [facility] Hep B, Adol or Pedi 1996-04-27 Completed Unive rsity of Dosage 00:00:00 [facility] HIB 4 Dose Schedule 1996-04-27 Completed Unive rsity of 00:00:00 [facility] Polio (IPV/OPV) 1996-04-27 Completed Universit y of 00:00:00 [facility] DTP 1996-02-18 Completed University of 00:00:00 [facility] HIB 4 Dose Schedule 1996-02-18 Completed Unive rsity of 00:00:00 [facility] Polio (IPV/OPV) 1996-02-18 Completed Universit y of 00:00:00 [facility] DTP 1995 Completed University of 00:00:00 [facility] Hep B, Adol or Pedi 1995 Completed Unive rsity of Dosage 00:00:00 [facility] HIB 4 Dose Schedule 1995 Completed Unive rsity of 00:00:00 [facility] Polio (IPV/OPV) 1995 Completed Universit y of 00:00:00 [facility] Hep B, Adol or Pedi 1995 Completed Unive rsity of Dosage 00:00:00 [facility] Vital Signs Vital Name Observation Time Observation Value Comments Source Systolic blood 2022-09-03 17:19:00 123 mm[Hg] Univer sity of pressure [facility] Diastolic blood 2022-09-03 17:19:00 77 mm[Hg] Unive rsity of pressure [facility] Heart rate 2022-09-03 17:19:00 82 /min Universi ty of [facility] Body temperature 2022-09-03 17:19:00 36.44 [facility] ersity of [facility] Respiratory rate 2022-09-03 17:19:00 18 /min Univ ersity of [facility] Body height 2022-09-03 17:19:00 157.5 cm Universi ty of [facility] Body weight 2022-09-03 17:19:00 64.955 kg Universi ty of [facility] BMI 2022-09-03 17:19:00 26.19 kg/m2 Universi ty [facility] Oxygen saturation in 2022-09-03 17:19:00 95 /min [facility] Arterial blood by [facility] Pulse oximetry Branch Systolic blood 2022-08-02 15:40:00 97 mm[Hg] Univer sity of pressure [facility] Diastolic blood 2022-08-02 15:40:00 65 mm[Hg] Unive rsity of pressure [facility] Heart rate 2022-08-02 15:40:00 80 /min Universi ty of [facility] Body temperature 2022-08-02 15:40:00 37.06 [facility] ersity of [facility] Body height 2022-08-02 15:40:00 157.5 cm Universi ty of [facility] Body weight 2022-08-02 15:40:00 63.957 kg Universi ty of [facility] BMI 2022-08-02 15:40:00 25.79 kg/m2 [facility] ty [facility] Systolic blood 2022-05-09 15:42:00 98 mm[Hg] Univer sity of pressure [facility] Diastolic blood 2022-05-09 15:42:00 63 mm[Hg] Unive rsity of pressure [facility] Heart rate 2022-05-09 15:42:00 90 /min [facility]i ty of [facility] Body temperature 2022-05-09 15:42:00 36.67 [facility] ers[facility] of [facility] Respiratory rate 2022-05-09 15:42:00 18 /min Univ ersity of [facility] Body height 2022-05-09 15:42:00 157.5 cm Universi ty of [facility] Body weight 2022-05-09 15:42:00 63.368 kg [facility]i ty of [facility] BMI 2022-05-09 15:42:00 25.55 kg/m2 [facility] ty [facility] Oxygen saturation in 2022-05-09 15:42:00 99 /min University of Arterial blood by [place] [employer] [facility] dior Pulse oximetry Branch Systolic blood 2021-12-11 16:52:00 103 mm[Hg] Univer sity of pressure [facility] Diastolic blood 2021-12-11 16:52:00 69 mm[Hg] Unive rsity of pressure [facility] Heart rate 2021-12-11 16:52:00 80 /min [facility]i ty of [facility] Body temperature 2021-12-11 16:52:00 37.06 [facility] ersity of [facility] Respiratory rate 2021-12-11 16:52:00 17 /min Univ ersity of [facility] Body height 2021-12-11 16:52:00 162.6 cm [facility] Body weight 2021-12-11 16:52:00 62.188 kg [facility] BMI 2021-12-11 16:52:00 23.53 kg/m2 [facility] Oxygen saturation in 2021-12-11 16:52:00 100 /min [facility]ial blood by [place] [facility] Pulse oximetry [facility] Systolic blood 2021-12-02 17:11:00 102 mm[Hg] Univer sity of pressure [facility] Diastolic blood 2021-12-02 17:11:00 67 mm[Hg] Unive rsity of pressure [facility] Heart rate 2021-12-02 17:11:00 114 /min [facility] Body temperature 2021-12-02 17:11:00 37.17 [facility] 2021-12-02 17:11:00 17 /min [facility] height 2021-12-02 17:11:00 165.1 cm [facility] Body weight 2021-12-02 17:11:00 62.143 kg Universi [facility] BMI 2021-12-02 17:11:00 22.80 kg/m2 [facility] Oxygen saturation in 2021-12-02 17:11:00 99 /min [facility] Arterial blood by [facility] Pulse oximetry Branch BP Diastolic 2021-09-06 00:00:00 69 mm[Hg] [facility] s Height 2021-09-06 00:00:00 65.5 [in_i] [facility] s BMI (Body Mass 2021-09-06 00:00:00 22.6 kg/m2 [facility]) [facility] s BP Systolic 2021-09-06 00:00:00 94 mm[Hg] [facility] s Body Weight 2021-09-06 00:00:00 2208 [oz_av] [facility] s BP Diastolic 2021-03-01 00:00:00 63 mm[Hg] [facility] s Height 2021-03-01 00:00:00 65.5 [in_i] [facility] s BMI (Body Mass 2021-03-01 00:00:00 22.8 kg/m2 [facility] Index) [facility] s BP Systolic 2021-03-01 00:00:00 110 mm[Hg] [facility] Body Weight 2021-03-01 00:00:00 2230.4 [oz_av] [facility] s BP Diastolic 2021-02-20 00:00:00 81 mm[Hg] [facility] Height 2021-02-20 00:00:00 65.5 [in_i] [facility] s BMI (Body Mass 2021-02-20 00:00:00 22.8 kg/m2 [facility]) [facility] s BP Systolic 2021-02-20 00:00:00 117 mm[Hg] [facility] Body Weight 2021-02-20 00:00:00 2224 [oz_av] [facility] s BP Diastolic 2020-12-21 00:00:00 70 mm[Hg] [facility] Height 2020-12-21 00:00:00 65.5 [in_i] [facility] s BMI (Body Mass 2020-12-21 00:00:00 23 kg/m2 [facility] s BP Systolic 2020-12-21 00:00:00 112 mm[Hg] [facility] s Body Weight 2020-12-21 00:00:00 2243.2 [oz_av] [facility] s BP Diastolic 2020-12-13 00:00:00 70 mm[Hg] [facility] Height 2020-12-13 00:00:00 65.5 [in_i] [facility] s BMI (Body Mass 2020-12-13 00:00:00 22.6 kg/m2 [facility]) [facility] s BP Systolic 2020-12-13 00:00:00 106 mm[Hg] [facility] Body Weight 2020-12-13 00:00:00 2208 [oz_av] [facility] BP Diastolic 2020-12-08 00:00:00 72 mm[Hg] [facility] Height 2020-12-08 00:00:00 65.5 [in_i] [facility] BMI (Body Mass 2020-12-08 00:00:00 22.9 kg/m2 [facility] BP Systolic 2020-12-08 00:00:00 106 mm[Hg] [facility] Body Weight 2020-12-08 00:00:00 2236.8 [oz_av] [facility] BP Diastolic 2020-11-09 00:00:00 76 mm[Hg] [facility] Height 2020-11-09 00:00:00 65.5 [in_i] [facility] BMI (Body Mass 2020-11-09 00:00:00 23.3 kg/m2 [facility]) [facility] s BP Systolic 2020-11-09 00:00:00 112 mm[Hg] [facility] Body Weight 2020-11-09 00:00:00 2278.4 [oz_av] [facility] s BMI (Body Mass 2020-07-04 00:00:00 22.9 kg/m2 [facility]) [facility] s BP Systolic 2020-07-04 00:00:00 116 mm[Hg] [facility] Body Weight 2020-07-04 00:00:00 2240 [oz_av] [facility] BP Diastolic 2020-07-04 00:00:00 66 mm[Hg] [facility] Height 2020-07-04 00:00:00 65.5 [in_i] [facility] Height 2020-05-02 00:00:00 65.5 [in_i] [facility] BP Diastolic 2020-04-28 00:00:00 62 mm[Hg] [facility] Height 2020-04-28 00:00:00 65.5 [in_i] [facility] BMI (Body Mass 2020-04-28 00:00:00 22.5 kg/m2 [facility]) [facility] BP Systolic 2020-04-28 00:00:00 106 mm[Hg] [facility] Body Weight 2020-04-28 00:00:00 2195.2 [oz_av] [facility] s Procedures Procedure Date / Time Performed Performing Clinician Alina jauregui POCT TEST 2022-08-02 00:00:00 Amina Bah [facility] CBC WITH DIFF 2022-05-09 16:48:00 Terry Wynne [facility] ASSIGNMENT OF BENEFITS 2021-12-11 16:45:15 Doctor Unassigned, No [facility] POCT MOLECULAR STREP 2021-12-02 17:18:00 Kaitlin Huerta [facility] US, duplex, venous, 2020-12-21 00:00:00 [facility] complete XR, chest, 2 view 2020-12-13 00:00:[address] [facility] electrocardiogram, 2020-04-28 00:00:00 [facility] routine ECG, 12 leads [facility] linics min XR, chest, 2 view 2020-04-28 00:00:[address] [facility] [id number] 2019-10-22 00:00:[address] [facility] Section [facility] Plan of Care Planned Activity Planned Date Details Comments Source Diagnostic Test 2021-03-01 test, [facility] mmunity Pending 00:00:00 urine [code = Hospital Clini cs test, urine] Instructions [facility] s Encounters Start End Encounter Admission Attending Care Care Encounter Source Date/Time Date/Time Type Type Clinicians Facility Department ID 2021-02-16 Outpatient P [facility] [id number] [facility] 11:52:25 [facility] 2021-02-16 Outpatient P [facility] [id number] Univers 11:52:19 [facility] 2019-10-22 Inpatient [facility] [id number] [facility] 12:00:00 [facility] 2019-10-18 Inpatient Joshua [facility] MANOJ [id number] [facility] 22:17:00 [facility] 2019-10-10 Inpatient Joshua [facility] [id number] [facility] 23:59:00 Jake [facility] 2022-11-05 2022-11-05 Outpatient R SHERRELL, TERRY [facility] [id number] Univers 13:30:00 13:30:00 [facility]22-09-03 2022-09-03 Outpatient R TERRY WYNNE [facility] [id number] Univers 13:00:00 13:36:22 SHERRELLLARSVINCENTCarmelita [facility] 2022-09-03 2022-09-03 Office Sherrell [facility] 1.2.840.114 [id number] Univers 13:00:00 13:36:22 Visit Terry FROST 350.1.13.10 ity of [facility] [place] [id number] [address] 2022-09-03 2022-09-03 Telephone Dmitry [facility] 1.2.840.114 [id number] Univers 00:00:00 00:00:00 Zeferino FROST 350.1.13.10 i ty of [facility] 4.2.7.[place] [phone] Al dic[address] 2022-08-22 2022-08-22 Outpatient R AMINA BAH [facility] [id number] Univers 13:30:00 13:30:00 ity [facility] 2022-08-02 2022-08-02 Office Dmitry [facility] 1.2.626.003 [id number] Univers 11:00:00 11:00:00 Visit Zeferino FROST 350.1.13.10 i ty of [facility] 4.2.7.2.[place] [phone] Al dicct NAL [address] [place] [address] 2022-08-02 2022-08-02 Outpatient R AMINA BAH [facility] [id number] Univers 11:00:00 10:57:23 ity [facility] 2022-08-01 2022-08-01 Telephone Terri, [facility] 1.2.505.729 [id number] Univers 00:00:00 00:00:00 Leanne Basil FROST 350.1.13.10 ity of [place] [phone] Al dical NAL 134 [facility] 2022-06-22 2022-06-22 [facility]phone [facility] 1.2.840.114 [id number] Univers 00:00:00 00:00:00 Leticiamesfin FROST 350.1.13.10 ity of [place] 4.2.7.2.[place] [phone] Al dical NAL 044 [facility] 2022-06-11 2022-06-11 Patient Doctor [facility] 1.2.840.114 [id number] Univers 00:00:00 00:00:00 Secure Msg Unassigned, MARGOT 350.1.13.10 ity of [place].2.7.2.[place] [phone] Al dical NAL 044 [facility] 2022-06-04 2022-06-04 [facility]phone [facility] 1.2.840.114 [id number] Univers 00:00:00 00:00:00 Terry FROST 350.1.13.10 ity of [facility] 4.2.7.2.[place] [phone] Al dical NAL 231 [facility] 2022-05-11 2022-05-11 Telephone [facility] 1.2.840.114 [id number] Univers 00:00:00 00:00:00 Terry FROST 350.1.13.10 ity of [place].2.7.2.[place] [phone] Al dical NAL 044 [facility] 2022-05-09 2022-05-09 Office [facility] 1.2.840.114 [id number] Univers 11:00:00 11:00:00 Visit Terry FROST 350.1.13.10 ity of [facility] 4.2.7.2.[place] [phone] Al dical NAL 044 [facility] 2022-05-09 2022-05-09 Car 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 2, Adc Lab [facility] 1.2.840.114 [id number] Univers 10:45:00 10:49:37 Visit Terry Wynne 350.1.13.1 0 ity of [place] 4.2.7.2.[place] [phone] Al dical NAL 353 [facility] 2022-05-09 2022-05-09 Outpatient R [facility] [id number] Univers 11:00:00 10:32:43 SHERRELL LETICIAMESFIN ity [facility] 2022-05-09 2022-05-09 Patient Sherrell [facility] 1.2.840.114 [id number] Univers 00:00:00 00:00:00 Secure Msg Terry DRESHER 350.1.13.10 ity of [place] 4.2.7.2.[place] [id number] [facility] 044 [facility] 2022-01-11 2022-01-11 Refill [facility] 1.2.840.114 [id number] Univers 00:00:00 00:00:00 Shanna HEALTH 350.1.13.10 it y of [facility] 4.2.7.2.686 Ilir as MARTHA?BLEA [phone] [address] OFFICE [facility] 2021-12-11 2021-12-11 Outpatient R DANY [facility] [id number] Univers 11:40:00 12:10:59 [facility] 2021-12-11 2021-12-11 Urgent Dany [facility] 1.2.840.114 [id number] Univers 11:40:00 12:10:59 Care Shanna HEALTH 350.1.13.10 it y of [facility] 4.2.7.2.686 Ilir as MARTHA?BLEA [phone] [address] OFFICE [facility] 2021-12-11 2021-12-11 Orders Doctor CHUY 1.2.840.114 [id number] Univers 00:00:00 00:00:00 Only Unassigned, NYDIA 350.1.13.10 ity of [place] [facility]OSPITAL 4.2.7.2.686 Ilir as [phone] [facility] [address] [place] 2021-12-11 2021-12-11 Refill Dany [facility] 1.2.840.114 [id number] Univers 00:00:00 00:00:00 Shanna HEALTH 350.1.13.10 it y of [place] 4.2.7.2.686 Ilir as MARTHA?BLEA [phone] [address] OFFICE [facility] 2021-12-03 2021-12-03 Telephone CHUY [place] 1.2.317.548 [id number] Univers 00:00:00 00:00:00 Shelley STAFFORD 350.1.13.10 it y of [facility] 4.2.7.2.686 Ilir as [phone] [facility] [address] [place] 2021-12-03 2021-12-03 Telephone [facility] 1.2.840.114 [id number] Univers 00:00:00 00:00:00 Rania HEALTH 350.1.13.10 it y of [place] 4.2.7.2.686 Ilir as MARTHA?BLEA [id number] [address] OFFICE [facility] 2021-12-02 2021-12-02 Outpatient R DEANNA [facility] [id number] Univers 12:20:00 12:44:27 KAITLIN ity [facility] 2021-12-02 2021-12-02 Urgent [facility] 1.2.840.114 [id number] Univers 12:20:00 12:40:00 Care Rania HEALTH 350.1.13.10 it y of [place] 4.2.7.2.686 Ilir as MARTHA?BLEA [phone] [address] MEDICAL OFFICE [facility] 2021-09-06 2021-09-06 Outpatient SISSON_C [facility] [id number] [place] 10:44:00 10:44:00 518 Commun i ty Hospita l Clinics 2021-09-06 2021-09-06 [facility] [place] 00:00:00 00:00:00 Jamal [facility] MSN, DRONE SOFTWARE DEVELOPMENT ENGINEER, Hospital - ty PRINT PRODUCTION COORDINATOR-C: [address] [place] [facility] [place], [facility], Clinic s [address], [facility] [address], [place] MSN, PRINT PRODUCTION COORDINATOR-C [address] , Ph. 2021-09-06 2021-09-06 [facility] [id number] 00:00:00 00:00:00 Amarilis [id number] 2021-09-05 2021-09-05 Outpatient Dom [facility] [id number] Univers 13:30:00 13:30:00 [facility] 2021-06-08 2021-06-08 [facility] 1.2.840.114 [id number] Univers 00:00:00 00:00:00 Management Leanne FROST 350.1.13.10 ity [facility] [place] [phone] Al dical NAL [address] [place] [address] 2021-06-08 2021-06-08 Telephone [facility] 1.2.840.114 [id number] Univers 00:00:00 00:00:00 Johnathan FROST 350.1.13.10 i ty [facility] 4.2.7.[place] [phone] Al dical NAL [address] [place] [address] 2021-06-06 2021-06-06 Outpatient Dom [facility] [id number] Univers 13:30:00 13:55:25 JOHNATHAN [facility] 2021-06-06 2021-06-06 Office Oscar [facility] 1.2.840.11 [id number] Univers 13:30:00 13:55:25 Visit Leanne Murray Basil FROST 350.1.13.10 ity of [place] 4.2.7.2.[place] [phone] Al dical NAL 134 [facility] 2021-06-06 2021-06-06 Orders Doctor CHUY 1.2.840.114 [id number] 00:00:00 00:00:00 Only Unassigned, NYDIA 350.1.13.10 ity of [place] [facility] 4.2.7.2.686 Ilir as [phone] [address] 2021-03-01 2021-03-01 Outpatient [facility] 681 [place] 10:10:00 10:10:00 _L 110 Commun i ty Hospita l Clinics 2021-03-01 2021-03-01 Outpatient [facility] 68 [place] 10:10:00 10:10:00 _L 412 Commun i ty Hospita l [facility] 2021-03-01 2021-03-01 Outpatient [facility] 3ee [id number] 00:00:00 00:00:00 , Lamar [id number] Swathi [id number] 2021-03-01 2021-03-01 Jada [facility] [place] [address] [place] 00:00:00 00:00:00 [facility] KAREN collado-C: [facility] ty [address] [place] [address] [address], [place] [address] , Ph. 2021-02-20 2021-02-20 Outpatient [facility] 68 [place] 12:30:00 12:30:00 _L 101 Commun i ty Hospita l Clinics 2021-02-20 2021-02-20 Outpatient [facility] 68 [place] 12:30:00 12:30:00 _L 109 Commun i ty Hospita l Clinics 2021-02-20 2021-02-20 Outpatient [facility] [id number] [id number] 00:00:00 00:00:00 , Lamar [id number] Swathi [id number] 2021-02-20 2021-02-20 Lamar Echevarria [facility] [place] 202 [id number] [place] 00:00:00 00:00:00 [facility]-C: Hospital [address], [place] [address] , Ph. 2021-01-12 2021-01-12 Outpatient [facility] 68 [place] 11:34:00 11:34:00 _L 020 Commun i ty Hospita [facility] 2020-12-21 2020-12-21 Outpatient [place] [id number] [place] 11:23:00 11:23:00 _L 901 Commun i ty Hospita [facility] 2020-12-21 2020-12-21 Outpatient [facility] [id number] 00:00:00 00:00:00 , Lamar [id number] Swathi [id number] 2020-12-21 2020-12-21 Lamar Echevarria [facility] [place] 202 [id number] [place] 00:00:00 00:00:00 [facility]-C: Hospital [address], [place] [address] , Ph. 2020-12-13 2020-12-13 Outpatient [facility] 68 [place] 10:17:00 10:17:00 _L 824 Commun i ty Hospita l [facility] 2020-12-13 2020-12-13 Jada [facility] [place] 202 [id number] [place] 00:00:00 00:00:00 [facility] KAREN Lincoln-C: Hospital - ty [address] [place] [address] [address], [place] [address] , Ph. 2020-12-13 2020-12-13 Outpatient [facility] [id number] 00:00:00 00:00:00 , Lamar [id number] Swathi [id number] 2020-12-09 2020-12-09 Outpatient [facility] 68 [place] 12:51:00 12:51:00 _L 820 Commun i ty Hospita l [facility] 2020-12-08 2020-12-08 Outpatient [place] [id number] [place] 04:19:00 04:19:00 _L 819 Commun i ty Hospita l [facility] 2020-12-08 2020-12-08 Lamar Echevarria [facility] [place] 202 [id number] [place] 00:00:00 00:00:00 [facility] KAREN Lincoln-C: Hospital - ty [address] [place] [address] [address], [place] [address] , Ph. 2020-12-08 2020-12-08 Outpatient [facility] [id number] 00:00:00 00:00:00 , Lamar [id number] Swathi [id number] 2020-11-09 2020-11-09 Outpatient [facility] 68 [place] 04:10:00 04:10:00 _L 721 Commun i ty Hospita l [facility] 2020-11-09 2020-11-09 Lamar Echevarria [facility] [place] 202 [id number] [place] 00:00:00 00:00:00 [facility] KAREN Lincoln-C: Hospital - ty [address] [place] [address] [address], [place] [address] , Ph. 2020-11-09 2020-11-09 Outpatient [facility] [id number] 00:00:00 00:00:00 , Lamar [id number] Swathi [id number] 2020-11-09 2020-11-09 Outpatient [facility] [id number] 00:00:00 00:00:00 , Lamar [id number] Swathi [id number] 2020-07-12 2020-07-12 Patient Dom, [facility] 1.2.840.114 [id number] Univers 00:00:00 00:00:00 Outreach [facility] 350.1.13.10 i ty [facility] 4.2.7.2.686 Melita CADE [phone] Al dical [address] 2020-07-04 2020-07-04 Outpatient [facility] 68 [place] 05:06:00 05:06:00 _L 315 Commun i ty Hospita l Clinics 2020-07-04 2020-07-[address] [id number] 00:00:00 00:00:00 , Lamar [id number] Swathi [id number] 2020-07-04 2020-07-04 Lamar Echevarria [facility] [place] 202 [id number] [place] 00:00:00 00:00:00 [facility] KAREN collado-C: Hospital - ty [address] [facility] [address], [place] [address] , Ph. 2020-05-12 2020-05-12 Outpatient [facility] 68 [place] 03:16:00 03:16:00 _L 121 Commun i ty Hospita l Clinics 2020-05-03 2020-05-03 Outpatient [place] [id number] [place] 08:52:00 08:52:00 _L 112 Commun i ty Hospita l Clinics 2020-05-02 2020-05-02 Outpatient [facility] 681 [place] 01:56:00 01:56:00 _L 111 Commun i ty Hospita l Clinics 2020-05-02 2020-05-02 Outpatient [facility] 06a [id number] 00:00:00 00:00:00 , Lamar [id number] Swathi [id number] 2020-05-02 2020-05-02 Lamar Echevarria [facility] [place] 202 [id number] [place] 00:00:00 00:00:00 [facility] TAMIE LincolnP-C: [place] [address], [place] [address] , Ph. 2020-04-28 2020-04-28 Outpatient [facility] 681 [place] 04:56:00 04:56:00 _L 107 Commun i ty Hospita l Clinics 2020-04-28 2020-04-28 Outpatient [facility] [id number] [id number] 00:00:00 00:00:00 , Lamar [id number] Swathi [id number] 2020-04-28 2020-04-28 Outpatient [facility] [id number] [id number] 00:00:00 00:00:00 , Lamar [id number] Swathi [id number] 2020-04-28 2020-04-28 Jada [facility] [place] 202 [id number] [place] 00:00:00 00:00:00 [facility] TAMIE LincolnP-C: [address] [facility], [place] [address] , Ph. 2019-10-19 2019-10-19 Outpatient YAAKOV Lewis [id number] [facility] 17:43:00 17:43:00 Jake Su [facility] 2019-06-22 2019-06-22 Telephone Amina Bah [facility] 1.2.840.114 [id number] 00:00:00 00:00:00 [place] 350.1.13.10 [place] 4.2.7.2.686 Professio [phone] [address] 2019-06-22 2019-06-22 Telephone Amina Bah [facility] 1.2.840.114 [id number] [facility] 00:00:00 00:00:00 Cam [place] 350.1.13.10 i ty of [place].2.[place] [phone] Al dical [address] 2019-06-21 2019-06-21 [facility] Amina Bah [facility] 1.2.840.114 [id number] 21:08:00 21:57:00 Encounter [place] 350.1.13.10 [place] 4.2.7.2.686 [place] [id number] [facility] 2019-06-21 2019-06-21 [facility] Amina Bah [facility] 1.2.840.114 [id number] [facility] 21:08:00 21:57:00 Encounter Cam [place] 350.1.13.10 ity of [place] 4.2.7.2.686 [place] [id number] [address] 2019-06-21 2019-06-21 Nurse NurseHaja [facility] 1.2.840.114 [id number] 20:57:29 20:58:31 Visit Urgent Care Health 350.1.13.10 Surgical 4.2.7.2.686 Specialti [phone] es [address] [place] 2019-06-21 2019-06-21 Nurse Nurse, [facility] 1.2 .840.114 [id number] [facility] 20:57:29 20:58:31 Visit Unknown, Attending Health 350.1.13.10 ity of Surgical 4.2.7.2.686 Ilir as Specialti [phone] Al dical es 370 [facility] 2019-06-21 2019-06-21 Outpatient R SALVADOR, [facility] [id number] Univers 20:30:00 20:30:00 ATTENDING ity [facility] 2019-06-21 2019-06-21 Orders Doctor CHUY 1.2.840.114 [id number] 00:00:00 00:00:00 Only Unassigned, NYDIA 350.1.13.10 [place] [facility] 4.2.7.2.686 [id number] [facility] 2019-06-21 2019-06-21 Orders Doctor CHUY 1.2.840.114 [id number] Univers 00:00:00 00:00:00 Only Unassigned, NYDIA 350.1.13.10 ity of [place] [facility] 4.2.7.2.686 Ilir as [phone] [address] 2019-06-15 2019-06-15 Outpatient R LUPILLOLING, [facility] [id number] Univers 10:00:00 10:00:00 JOHNATHAN [facility] 2019-06-10 2019-06-10 Telephone Dmitry [facility] 1.2.840.114 [id number] 00:00:00 00:00:00 [place] 350.1.13.10 [place] 4.2.7.2.686 Professio [phone] [address] 2019-06-10 2019-06-10 Telephone Dmitry [facility] 1.2.840.114 [id number] Univers 00:00:00 00:00:00 Cam [place] 350.1.13.10 i ty of [place].2.[place] [phone] Al dical [address] 2019-05-29 2019-05-29 Telephone Dmitry [facility] 1.2.840.114 [id number] 00:00:00 00:00:00 [place] 350.1.13.10 [place] 4.2.7.2.686 Professio [phone] [address] 2019-05-29 2019-05-29 Orders Doctor VERA 1.2.840.114 [id number] 00:00:00 00:00:00 Only Unassigned, NYDIA 350.1.13.10 [place] [facility] 4.2.7.2.686 [id number] 009 2019-05-29 2019-05-29 Telephone Amina Bah [facility] 1.2.840.114 [id number] [facility] 00:00:00 00:00:00 [place] 350.1.13.10 i ty of [place].7.2.[place] [phone] [address] 2019-05-29 2019-05-29 Orders Doctor CHUY 1.2.840.114 [id number] Univers 00:00:00 00:00:00 Only Unassigned, NYDIA 350.1.13.10 ity of [place] [facility]OSPITAL 4.2.7.2.686 Ilir as [phone] [address] 2019-05-27 2019-05-27 Telephone Amina Bah [facility] 1.2.840.114 [id number] 00:00:00 00:00:00 [place] 350.1.13.10 [place] 4.2.7.2.686 Professio [phone] [address] 2019-05-27 2019-05-27 Telephone Amina Bah [facility] 1.2.840.114 [id number] Univers 00:00:00 00:00:00 Cam [place] 350.1.13.10 i ty of [place].2.[place] [phone] [address] 2019-05-25 2019-05-25 Telephone Bela Bahen [facility] 1.2.840.114 [id number] 00:00:00 00:00:00 Cam [place] 350.1.13.10 [place] 4.2.7.2.686 Professio [phone] [address] 2019-05-25 2019-05-25 Telephone Amina Bah [facility] 1.2.840.114 [id number] Univers 00:00:00 00:00:00 Cam [place] 350.1.13.10 i ty of [place].2.[place] [phone] [address] 2019-05-18 2019-05-18 Routine Amina Bah [facility] 1.2.417.242 [id number] 15:31:57 16:39:05 Cam [place] 350.1.13.10 Visit [place] 4.2.7.2.686 Professio [phone] [address] 2019-05-18 2019-05-18 Routine Amina Bah [facility] 1.2.230.975 [id number] [facility] 15:31:57 16:39:05 [place] 350.1.13.10 ity of [place]2.[place] [phone] Al dical [address] 2019-05-18 2019-05-18 Orders Doctor CHUY 1.2.840.114 [id number] 00:00:00 00:00:00 Only Unassigned, NYDIA 350.1.13.10 [place] [facility] 4.2.7.2.686 [phone] [facility] 2019-05-18 2019-05-18 Orders Doctor CHUY 1.2.840.114 [id number] Univers 00:00:00 00:00:00 Only Unassigned, NYDIA 350.1.13.10 ity of [place] [facility] 4.2.7.2.686 Ilir as [phone] [address] 2019-05-13 2019-05-13 Abstract James OKBETHEL 1.2.840.114 [id number] 00:00:00 00:00:00 Sanam Fernandes [employer] 350.1.13.10 REGIONAL 4.2.7.2.686 MATERNAL [phone] & CHILD [address] [facility] 2019-05-13 2019-05-13 Abstract James OKBETHEL 1.2.840.114 [id number] Univers 00:00:00 00:00:00 Kassandranda R [employer] 350.1.13.10 ity of REGIONAL 4.2.7.2.686 Ilir as MATERNAL [phone] Med ical & CHILD [address] [facility] 2019-04-20 2019-04-20 Orders Doctor VERA 1.2.840.114 [id number] 00:00:00 00:00:00 Only Unassigned, NYDIA 350.1.13.10 [place] [facility] 4.2.7.2.686 [phone] 2019-04-20 2019-04-20 Orders Doctor CHUY 1.2.840.114 [id number] Univers 00:00:00 00:00:00 Only Unassigned, NYDIA 350.1.13.10 ity of [place] [facility] 4.2.7.2.686 Ilir as [phone] [address] 2018-12-12 2018-12-12 Orders Doctor CHUY 1.2.840.114 [id number] 00:00:00 00:00:00 Only Unassigned, NYDIA 350.1.13.10 [place] [facility] 4.2.7.2.686 [phone] 2018-12-12 2018-12-12 Orders Doctor VERA 1.2.840.114 [id number] Univers 00:00:00 00:00:00 Only Unassigned, NYDIA 350.1.13.10 ity of [place] [facility] 4.2.7.2.686 Ilir as [phone] [address] [address] 2018-12-03 2018-12-03 Emergency [facility] [id number] 18:02:02 20:57:00 Teja Frost 350.1.13.10 [place] 4.2.7.2.686 [place] [id number] [facility] 2018-12-03 2018-12-03 Emergency [facility] 1.2.840.114 [id number] [facility] 18:02:02 20:57:00 Teja Frost 350.1.13.10 ity of [place] 4.2.7.2.686 [facility] [id number] [address] 2018-12-03 2018-12-03 Orders Doctor VERA 1.2.840.114 [id number] 00:00:00 00:00:00 Only Unassigned, NYDIA 350.1.13.10 [place] [facility] 4.2.7.2.686 [phone] [facility] 2018-12-03 2018-12-03 Orders Doctor VERA 1.2.840.114 [id number] [facility] 00:00:00 00:00:00 Only Unassigned, NYDIA 350.1.13.10 [place] [facility] 4.2.7.2.686 [place] as [id number] [address] Results Test Description Test Time Test Comments Results Result Comments Source POCT TEST 2022-08-02 15:41:00 Test Item Value Reference Range Interpretation Comme nts POCT PREG (test code = 1605) Negative On board controls acceptable with C Line (test code = 3574) Yes POCT PREG LOT # (test code = 3575) POCT PREG TEST DATE (test code = 3576) [id number] 15:41:00 Test Item Value Reference Range Interpretation Comments POCT PREG (test code = 1605) Negative On board controls acceptable with C Yes Line (test code = 3574) POCT PREG LOT # (test code = 3575) POCT PREG TEST DATE (test code = 3576) [facility] [id number] 17:25:59 Test Item Value Reference Range Interpretation Comments POCT Molecular Strep (test code = Negative Negative 60086-0) Lab Interpretation (test code = Normal 99072-9) [facility] Ag [Presence] in Respiratory specimen by Rapid [id number] 10:05:00 Test Item Value Reference Range Interpretation Comments SARS CoV 2 (test code = SARS CoV 2) negative [facility]-CoV-2 (COVID-19) Ag [Presence] in Respiratory specimen by Rapid [id number] 08:39:00 Test Item Value Reference Range Interpretation Comments SARS CoV 2 (test code = SARS CoV 2) [facility], [id number] 14:57:00 Test Item Value Reference Range Interpretation Comments Strep (test code = Strep) negative [facility] strep group A, [id number] 14:57:00 Test Item Value Reference Range Interpretation Comments Strep (test code = Strep) negative [facility]-CoV-2 (COVID-19) Ag [Presence] in Respiratory specimen by Rapid [id number] 15:32:00 Test Item Value Reference Range Interpretation Comments SARS CoV 2 (test code = SARS CoV 2) [facility], [id number] 15:31:00 Test Item Value Reference Range Interpretation Comments Strep (test code = Strep) negative [facility] [Mass/volume] in Serum or [id number] 00:00:00 Test Item Value Reference Range Interpretation Comments Troponin I.cardiac [Mass/volume] in <0.01 0.00-0.04 Serum or Plasma (test code = 69504-9) [facility]Mass/volume] in Serum or [id number] 00:00:00 Test Item Value Reference Range Interpretation Comments Troponin T.cardiac [Mass/volume] in <0.010 <0.011 Serum or Plasma (test code = 6598-7) [facility] [id number] 00:00:00 Test Item Value Reference Range Interpretation Comments written authorization (test code = comment written authorization) [facility] - Serum or Plasma 2020-04-29 00:00:00 Test Item Value Reference Range Interpretation Comments Thyrotropin [Units/volume] in 0.691 uIU/mL 0.450-4.500 Serum or Plasma by Detection limit <= 0.005 mIU/L (test code = 42895-3) Thyroxine (T4) free 1.01 NG/dL 0.82-1.77 [Mass/volume] in Serum or Plasma (test code = 3024-7) [facility] W Auto Differential panel - [id number] 00:00:00 Test Item Value Reference Range Interpretation Comments Leukocytes [#/volume] in Blood 5.5 x10e3/uL 3.4-10.8 by Automated count (test code = 6690-2) Erythrocytes [#/volume] in 4.01 x10e6/uL 3.77-5.28 Blood by Automated count (test code = 789-8) Hemoglobin [Mass/volume] in 12.1 g/dL 11.1-15.9 Blood (test code = 718-7) Hematocrit [Volume Fraction] of 36.3 % 34.0-46.6 Blood by Automated count (test code = 4544-3) Erythrocyte mean corpuscular 91 fL 79-97 volume [Entitic volume] by Automated count (test code = 787-2) Erythrocyte mean corpuscular 30.2 pg 26.6-33.0 hemoglobin [Entitic mass] by Automated count (test code = 785-6) Erythrocyte mean corpuscular 33.3 g/dL 31.5-35.7 hemoglobin concentration [Mass/volume] by Automated count (test code = 786-4) Erythrocyte distribution width 13.0 % 11.7-15.4 [Ratio] by Automated count (test code = 788-0) Platelets [#/volume] in Blood 338 x10e3/uL 150-450 by Automated count (test code = 777-3) Neutrophils/100 leukocytes in 58 % not estab. Blood by Automated count (test code = 770-8) Lymphocytes/100 leukocytes in 32 % not estab. Blood by Automated count (test code = 736-9) Monocytes/100 leukocytes in 6 % not estab. Blood by Automated count (test code = 5905-5) Eosinophils/100 leukocytes in 3 % not estab. Blood by Automated count (test code = 713-8) Basophils/100 leukocytes in 1 % not estab. Blood by Automated count (test code = 706-2) immature cells (test code = chaser tar immature cells) Neutrophils [#/volume] in Blood 3.2 x10e3/uL 1.4-7.0 by Automated count (test code = 751-8) Lymphocytes [#/volume] in Blood 1.8 x10e3/uL 0.7-3.1 by Automated count (test code = 731-0) Monocytes [#/volume] in Blood 0.3 x10e3/uL 0.1-0.9 by Automated count (test code = 742-7) Eosinophils [#/volume] in Blood 0.2 x10e3/uL 0.0-0.4 by Automated count (test code = 711-2) Basophils [#/volume] in Blood 0.0 x10e3/uL 0.0-0.2 by Automated count (test code = 704-7) Immature granulocytes/100 0 % not estab. leukocytes in Blood by Automated count (test code = 43890-8) Immature granulocytes 0.0 x10e3/uL 0.0-0.1 [#/volume] in Blood by Automated count (test code = 32321-8) Nucleated erythrocytes/100 chaser tar leukocytes [Ratio] in Blood by Automated count (test code = 52648-0) Morphology [Interpretation] in chaser tar Blood Narrative (test code = 38155-1) [facility] - Serum or [id number] 00:00:00 Test Item Value Reference Range Interpretation Comments Glucose [Mass/volume] in 85 mg/dL 65-99 Serum or Plasma (test code = 2345-7) Urea nitrogen [Mass/volume] 9 mg/dL 6-20 in Serum or Plasma (test code = 3094-0) Creatinine [Mass/volume] in 0.64 mg/dL 0.57-1.00 Serum or Plasma (test code = 2160-0) Glomerular filtration 125 mL/min/1.73 >59 rate/1.73 sq M.predicted among non-blacks [Volume Rate/Area] in Serum, Plasma or Blood by Creatinine-based formula (CKD-EPI) (test code = 67992-2) Glomerular filtration 144 mL/min/1.73 >59 rate/1.73 sq M.predicted among blacks [Volume Rate/Area] in Serum, Plasma or Blood by Creatinine-based formula (CKD-EPI) (test code = 30652-9) Urea nitrogen/Creatinine 14 9-23 [Mass Ratio] in Serum or Plasma (test code = 3097-3) Sodium [Moles/volume] in 140 mmol/L 134-144 Serum or Plasma (test code = 2951-2) Potassium [Moles/volume] in 4.1 mmol/L 3.5-5.2 Serum or Plasma (test code = 2823-3) Chloride [Moles/volume] in 103 mmol/L 96-106 Serum or Plasma (test code = 2075-0) Carbon dioxide, total 21 mmol/L 20-29 [Moles/volume] in Serum or Plasma (test code = 2027-9) Calcium [Mass/volume] in 8.7 mg/dL 8.7-10.2 Serum or Plasma (test code = 11563-6) Protein [Mass/volume] in 6.7 g/dL 6.0-8.5 Serum or Plasma (test code = 2885-2) Albumin [Mass/volume] in 4.4 g/dL 3.9-5.0 Serum or Plasma (test code = 1751-7) Globulin [Mass/volume] in 2.3 g/dL 1.5-4.5 Serum by calculation (test code = 16919-0) Albumin/Globulin [Mass Ratio] 1.9 1.2-2.2 in Serum or Plasma (test code = 1759-0) Bilirubin.total [Mass/volume] <0.2 0.0-1.2 in Serum or Plasma (test code = 1975-2) Alkaline phosphatase 63 IU/L 39-117 [Enzymatic activity/volume] in Serum or Plasma (test code = 6768-6) Aspartate aminotransferase 16 IU/L 0-40 [Enzymatic activity/volume] in Serum or Plasma (test code = 1920-8) Alanine aminotransferase 8 IU/L 0-32 [Enzymatic activity/volume] in Serum or Plasma (test code = 1742-6) [facility] [id number] 00:00:00 Test Item Value Reference Range Interpretation Comments one specimen identifier (test code = comment one specimen identifier) [id number] 06:35:00 Test Item Value Reference Range Interpretation Comments HEMOGLOBIN (test code = HGB) 8.4 g/dL 10.7-13.9 L HEMATOCRIT (test code = HCT) 26.7 % 32.1-42.1 L COMPREHENSIVE METABOLIC [id number] 11:50:00 Test Item Value Reference Range Interpretation [...] 46-116 H code = ALKP) Novel Coronavirus 2018 [id number] 09:59:00 Test Item Value Reference Range Interpretation Comments Novel Coronavirus 2019 Inhouse (test Negative Negative code = COVNONPUI) Novel Coronavirus 2019 [id number] 09:59:00 Test Item Value Reference Range Interpretation Comments Novel Coronavirus 2018 Inhouse (test Negative Negative code = COVNONPUI) AG HEPATITIS B [id number] 17:41:00 Test Item Value Reference Range Interpretation Comments AG HEPATITIS B SURFACE (test code NONREACTIVE NONREACTIVE = HBSAG) : *IS CONSENT FORM SIGNED FOR HIV TESTING? YAB [id number] 17:41:00 Test Item Value Reference Range Interpretation Comments AB TREPONEMA (test code = TREPAB) NONREACTIVE NONREACTIVE : *IS CONSENT FORM SIGNED FOR HIV TESTING? YAB HIV 1 17:41:00 Test Item Value Reference Range Interpretation Comments AB HIV 1 2 (test NONREACTIVE NONREACTIVE Done by [facility] code = KPT01WR) 4th Gen HIV Ag/Ab Combo Screen : *IS CONSENT FORM SIGNED FOR HIV TESTING? YAG HEPATITIS B [id number] 17:11:00 Test Item Value Reference Range Interpretation Comments AG HEPATITIS B SURFACE (test code NONREACTIVE NONREACTIVE = HBSAG) : *IS CONSENT FORM SIGNED FOR HIV TESTING? YAB [id number] 17:11:00 Test Item Value Reference Range Interpretation Comments AB TREPONEMA (test code = TREPAB) NONREACTIVE NONREACTIVE : *IS CONSENT FORM SIGNED FOR HIV TESTING? YAB HIV 1 17:11:00 Test Item Value Reference Range Interpretation Comments AB HIV 1 2 (test code = VAI61UR) NONREACTIVE : *IS CONSENT FORM SIGNED FOR HIV TESTING? YCBC W/AUTO [id number] 16:34:00 Test Item Value Reference Range Interpretation [...] REQUIRED (test NORMAL NORMAL code = PLTMR) Notes Date/Time Note Provider Source 2019-11-28 15:24:00-00:00 [id number] [facility] [address], [place] [address] PATIENT NAME: ROXANNE LEY ADMIT DATE: 10/22/19 ACCOUNT NO: [id number] ROOM NO: F.8 AGE: 24 SEX: F ADMITTING PHYSICIAN: Jake Lewis MD ATTENDING PHYSICIAN: Jake Lewis MD ADMISSION DATE: 10/22/2019 DISCHARGE DATE: 10/24/2019 ADMISSION DIAGNOSES: 1. A 39-week . 2. Previous section. PROCEDURE PERFORMED: Repeat low transverse edda rita delivery. DISPOSITION: The patient discharged home in good condition. DISCHARGE EXAM: Benign with incision noted to be clean, dry, and intact. DISCHARGE MEDICATIONS: Include [place], Motrin, an d multivitamin. SUMMARY OF HOSPITAL COURSE: The patient presente d at 39 weeks for scheduled repeat as previously dictated. Postope ratively, she did well. She remained afebrile with stable vital signs throug hout her hospital course. Hemoglobin and hematocrit were stable. She had g ood pain control. She tolerated regular diet and ambulated without dif ficulty. By postoperative day #2, she was meeting all postoperative goals and was discharged home in good condition. DISCHARGE INSTRUCTIONS: Woun d care instructions were discussed with the patient and family. She was scheduled for followup in [facility] office in 2 weeks for incision check. Dictated By: Jake Lewis MD WT: DS:F.AUBREY/JEANCARLOS/NTS Conf#: [id number]/DID#: [id number] Authenticated by Jaek Lewis MD On 2019 05:07:47 AM Electronically Signed by Jake Lewis MD o n 12/21/19 at 0508 PATIENT NAME: ROXANNE LEY 54 2019-11-28 15:23:00-00:00 [facility] [address], [place] [address] PATIENT NAME: ROXANNE LEY ADMIT DATE: 10/22/19 ACCOUNT NO: [id number] ROOM NO: F.8 AGE: 24 SEX: F ADMITTING PHYSICIAN: Jake Lewis MD ATTENDING PHYSICIAN: Jake Lewis MD OPERATION DATE: 10/22/2019 PREOPERATIVE DIAGNOSES: 1. A 39-week . 2. Previous section. POSTOPERATIVE DIAGNOSES: 1. A 39-week . 2. Previous section. PROCEDURE PERFORMED: Repeat low transverse edda rita delivery. SURGEON: Jake Lewis MD NNP: Sherri Webber MD ANESTHESIA: Combined spinal epidural. ESTIMATED BLOOD LOSS: 700 mL. OPERATIVE FINDINGS: 1. Normal appearing uterus, ovaries, and tubes. 2. Cephalic female infant, Apgars 8 and 9, weigh t 8 pounds 13 ounces, nursery. 3. Hemostatic. 4. All counts correct. INDICATIONS: The patient presented at 39 weeks f or a scheduled repeat . Risks, benefits, alternatives, and in dications were discussed with the patient and family. They agreed to plan. PROCEDURE IN DETAIL: After i nformed consent was obtained, the patient was taken to the operating room. Adequate spinal epidural anesthesia was established. She was prepped and draped in the usual sterile fashion. Transverse skin incision made through the pr evious scar. This was carried down to the fascia. Fascia was scored in the midline. Fascia l incision was extended bilaterally and muscles diss ected off the back of the fascia. Peritoneal cavity was bluntly entered. Bladder flap was created at the level of the previous bladder flap. A low transverse hysteroto my was made. This was bluntly extended bilaterally. Membranes were bluntly ruptured, wi th clear fluid return. head was brought to the hysterotomy. Wit h fundal pressure, head and body were delivered. Mouth and nares were bulb suctio suresh. Cord was doubly clamped and cut, and fetus passed off for evaluation. Bety schumacher was delivered with PATIENT NAME: ROXANNE LEY 54 fundal massage. Uterus was exteriorized, wrapped in moist laparotomy sponge, curettaged with dry laparotomy sponge. Hysteroto my was closed with #1 chromic suture in running-locked fashion. Wound was irrigated and rendered hemostatic. Secondary layer closure was performed with 0 Mon ocryl in imbricating fashion. This too was irrigated and rendered hemostatic. Uterus was returned to the abdominal cavity. Gutters copiously irrigated an d suctioned dry. Hysterotomy was again inspected and rowan ined hemostatic. Peritoneum was reapproximated with 2-0 chromic suture. Muscles reapproximat ed with 2-0 chromic suture. Fascia was closed with 0 Vicryl from either side an d tied in midline. Subcutaneous tissue was copiously irrigated and suctioned dry. It was reapproximated with plain gut suture. Skin was closed with 3-0 Monocryl runnin g subcuticular stitch. Wound was dressed with Mastisol, Steri-Strips, and occlusive bandage. Blood and clot evacuated from the uterus an d vagina. The patient was taken to recovery room in good condition. There were no operative or anest hetic complications. Dictated By: Jake Lweis MD WT: OP:F.AUBREY/JEANCARLOS/NTS Conf#: [id number]/DID#: [id number] Authenticated by Jake Lewis MD On 2019 05:07:44 AM Electronically Signed by Jake Lewis MD o n 12/21/19 at 0508 PATIENT NAME: ROXANNE LEY 54 2019-10-24 10:23:00-00:00 [facility] OB Postpart Progr Note REPORT#:[id number] REPORT STATUS: Signed DATE:10/24/19 TIME: 1023 PATIENT: ROXANNE LEY UNIT #: [id number] ROOM/BED: [facility] : 95 AGE: 24 SEX: F ATTEND: Marisa Lewis MD ADM AUTHOR: Kamilla Romo MD * ALL edits or amendments must be made on the el [employer]/computer document * Subjective Subjective Status/Day: post (DAY 2) Patient reports: Patient reports: No no complaints Objective Nursing Documentation Review Nursing Data: The data set between the solid lines has been im ported from nursing documentation. Any exceptions have been noted be low under Provider comments. Feeding preference: Provider comments on imported nursing data: [] General VS: Vital Signs: Date Time Temp Pulse Resp B/P B/P Pulse O2 O2 F low FiO2 Mean Ox Delivery Rate 10/23 0348 98.1 63 18 93/59 70.2 10/23 0020 98.1 65 20 97/66 76.4 10/22 1956 98.4 81 20 102/65 77.2 Patient Weight Weight (lb): 170 Weight (oz): Weight (kg): 77.111 Physical Exam Neuro: Exam: alert, oriented x3, normal speech, normal gait Abdomen: soft, no abnormal tenderness, no guardi ng, no rebound tenderness Incision site: well approximated edges, dry Uterus: firm, non-tender Fundus: below the umbilicus, non-tender Lochia: normal Lower extremities: Edema: trace Diagnosis, Assessment Plan Diagnosis, Assessment Plan Assessment: acute blood loss anemia Plan: routine care, discharge today Plan discussed with: patient, spouse/partner Electronically Signed by Kamilla Romo MD 10/24/19 at 1025 RPT #:[id number] END OF REPORT 2019-10-23 10:25:00-00:00 [facility] [place] [facility] OB Postpart Progr Note REPORT#:[id number] REPORT STATUS: Signed DATE:10/23/19 TIME: 1025 PATIENT: ROXANNE LEY UNIT #: [id number] ROOM/BED: 2048 : 95 AGE: 24 SEX: F ATTEND: Marisa Lewis MD ADM AUTHOR: Sherri Webber MD * ALL edits or amendments must be made on the [employer]/computer document * Subjective Subjective Admission EGA (wks/days): 39 weeks EGA at delivery (wks/days): 39 weeks Status/day: post operative (1) Patient reports: Patient reports: Yes: normal lochia, pain management effective, tolerating po well, voiding well, voiding without pain, tolerating ambulatio n, flatus. No: complaints. Objective Nursing Documentation Review Nursing data: The data set between the solid lines has been im ported from nursing documentation. Any exceptions have been noted be low under Provider comments. Feeding preference: Provider comments on imported nursing data: [] General VS: Vital Signs Date Temp Pulse Resp B/P B/P Mean Pulse Ox FiO2 10/21 97.7 60-94 16-18 90-117/54-65 69.0-82.0 9 3-100 Last Documented: Result Date Time Pulse Ox 100 10/21 1519 Pulse 68 / 1519 B/P Mean 70.0 / 1509 B/P 90/59 / 1509 Resp 16 10/21 1509 Temp 97.7 10/21 1300 Patient Weight Weight (lb): 170 Weight (oz): Weight (kg): 77.111 Physical Exam Neuro: Exam: alert, oriented x3 Abdomen: soft, no abnormal tenderness, no guardi ng, no rebound tenderness Incision site: bandage in place, remove at 24 h postop Uterus: firm, non-tender Lochia: normal Lower extremities: Edema: trace Result Findings/data: Laboratory Tests: 10/22 10/21 0545 1100 Chemistry Sodium (135 - 145 mEq/L) 137 Potassium (3.5 - 5.0 mEq/L) 3.9 Chloride (100 - 115 mEq/L) 103 Carbon Dioxide (22 - 31 mEq/L) 23 Anion Gap (10 - 20) 14.50 BUN (7 - 18 mg/dL) 10 Creatinine (0.5 - 1.0 mg/dL) 0.7 Glomerular Filtr Rate (>60 ml/min) 103 Glucose (65 - 110 mg/dL) 73 Calcium (8.4 - 10.2 mg/dL) 8.2 L Total Bilirubin (0.2 - 1.0 mg/dL) 0.2 AST (15 - 37 units/L) 12 L ALT (12 - 78 units/L) 9 L Total Alk Phosphatase (46 - 116 units/L) 234 H Total Protein (6.3 - 8.2 gm/dL) 6.7 Albumin (3.4 - 4.8 gm/dL) 3.1 L Hematology Hgb (10.7 - 13.9 g/dL) 8.4 L Hct (32.1 - 42.1 %) 26.7 L Diagnosis, Assessment Plan Diagnosis, Assessment Plan Free text A P: POD#1 rltcs A+/RI/F Hct 32>26 bandage remove at 24 hr postop plan dc tomorrow Assessment: acute blood loss anemia Plan: routine care, discharge tomorro w Electronically Signed by Sherri Webber MD on 10/22 at 1027 RPT #:[id number] END OF REPORT 2019-10-22 12:54:00-00:00 [facility] OB Delivery Note REPORT#:[id number] REPORT STATUS: Signed DATE:10/22/19 TIME: 1254 PATIENT: ROXANNE LEY UNIT #: [id number] ROOM/BED: LDOR4-A : 95 AGE: 24 SEX: F ATTEND: Marisa Lewis MD ADM AUTHOR: Jake Lewis MD * ALL edits or amendments must be made on the el [employer]/computer document * OB Delivery Nursing Documentation Review Nursing data: The data set between the solid lines has been im ported from nursing documentation. Any exceptions have been noted be low under Provider comments. _ ROM date: ROM time: Membranes rupture method: Amniotic fluid color: Amniotic fluid amount: EGA (weeks/days): EGA at admit (weeks): EGA at delivery (weeks): Steroids prior to arrival: Antibiotic prophylaxis given: evaluation at delivery: Delivery date A: Delivery time infant A: Birthweight (gm) A: Weight (lb) infant A: Weight (oz) A: Gender infant A: 1 minute infant A: 5 minutes infant A: 10 minutes A: Cord pH obtained infant A: Vacuum time A: Vacuum # pulls infant A: Vacuum # popoffs infant A: QBL at delivery: __ Provider comments on imported nursing data: [] Pre-delivery Admission EGA (wks/days): 39 weeks Baby A Information Baby A information Delivery date: 10/22/19 Delivery time: 1229 status: live born Wt of baby (lbs/oz): 12/02 Gender: female 1 minute: 8 5 minutes: 9 Presentation: vertex Nuchal cord Baby A Nuchal cord: yes (loose and reduced) Delivery section Primary indication: elective repeat Priority: scheduled : : declined Antibiotic prior to incision: 1 dose )(SCDs applied activated: Yes Uterine incision: low transverse Uterine scar: intact Consent: indication discussed, questio ns answered, pt consent to op delivery Mother's condition: mother stable 's condition: stable in nursery Op/Inv Proc Note - Brief )( Procedure(s) performed: repeat low transverse c/s )( Primary Surgeon: Raymond Lewis )( Field Service Coordinator(s): Janusz Webber )( Pre-procedure diagnosis: 39 wk, prev C/S )( Post-procedure diagnosis: same )( Technique/Procedure: LTCS Anesthesia: combined spinal/epidural )( Estimated blood loss (ml): 700 )( Finding(s): nl ut/ov/tubes. hemostatic. counts correct. Blood Loss/Details Blood loss at delivery: <1000 ml, no more than e xpected EBL at delivery (ml's): 700 at 1255 RPT #:[id number] END OF REPORT 2019-10-22 11:56:00-00:00 [facility] [place] [facility] OB Admission / H P REPORT#:[id number] REPORT STATUS: Signed DATE:10/22/19 TIME: 1156 PATIENT: ROXANNE LEY UNIT #: [id number] ROOM/BED: [address] : 95 AGE: 24 SEX: F ATTEND: Marisa Lewis MD ADM AUTHOR: Jake Lewis MD * ALL edits or amendments must be made on the el [employer]/computer document * OB Admission H P Hx Chief complaint: scheduled history: : 3 Term: 1 Abortus: 1 Current : EDC: 10/29/19 Admission EGA (wks/days): 39 weeks Conditions of : previous uterine incisi on Labs: Blood type: A Rh: positive Rubella: immune Hepatitis B: negative HIV: negative STD: negative Syphilis: currently negative GBS: negative Past medical history: denies PMH Past surgical history: Social history: no alcohol use, no tobacco use, no drug use Medications: Home Medications: PNV WITH FE FUMARATE/FA () 1 TAB PO JAMILAH Y Allergies Coded Allergies: No Known Allergies (10/11/19) Objective General VS: Patient Weight Weight (lb): Weight (oz): Weight (kg): Physical Exam HEENT: normocephalic w/o injury Neuro: Exam: alert, oriented x3 Abdomen: gravid, soft, no abnormal tenderness Uterine activity: Monitor: toco Frequency (description): irregular Cervical/ exam: Dilatation (cm): 2 Membranes: Membranes: Intact Baby A: Baby A baseline: 135 bpm Baby A variability: moderate 6-25 bpm Baby A accelerations: 15 X 15 Baby A decelerations: none Baby A FHR category: category 1 Result Findings/Data: Laboratory Tests: 10/21 1100 Chemistry Sodium (135 - 145 mEq/L) 137 Potassium (3.5 - 5.0 mEq/L) 3.9 Chloride (100 - 115 mEq/L) 103 Carbon Dioxide (22 - 31 mEq/L) 23 Anion Gap (10 - 20) 14.50 BUN (7 - 18 mg/dL) 10 Creatinine (0.5 - 1.0 mg/dL) 0.7 Glomerular Filtr Rate (>60 ml/min) 103 Glucose (65 - 110 mg/dL) 73 Calcium (8.4 - 10.2 mg/dL) 8.2 L Total Bilirubin (0.2 - 1.0 mg/dL) 0.2 AST (15 - 37 units/L) 12 L ALT (12 - 78 units/L) 9 L Total Alk Phosphatase (46 - 116 units/L) 234 H Total Protein (6.3 - 8.2 gm/dL) 6.7 Albumin (3.4 - 4.8 gm/dL) 3.1 L Diagnosis, Assessment Plan Diagnosis, Assessment Plan Free Text A P: 39 wk, prev C/S. repeat C/S Quality Current Medications Current medication review: I attest that the foregoing medication list in t he medical record is true, accurate, and complete to the best of my knowled ge. at 1158 RPT #:[id number] END OF REPORT
--- NOTE | 2022-09-08 15:01 | RAD REPORT ---
EXAM DESCRIPTION: Danielito Single View09/08/2022 2:40 pm CLINICAL HISTORY: Chest pain COMPARISON: 2012 FINDINGS: The lungs appear clear of acute infiltrate. The heart is normal size IMPRESSION: No acute abnormalities displayed
[2022-09-08 15:48] LABS: Hematocrit 34.6 % (36.0-45.0); Lymphocytes % 29.1 % (15.3-44.8); MCV 89.8 fL (80-100); MPV 7.7 fL (7.6-11.3); RBC Red Blood Cell Count 3.85 M/uL (3.86-4.86)
[2022-09-08 16:06] LABS: BUN Blood Urea Nitrogen 16 mg/dL (7-18); Bicarbonate 26 mEq/L (21-32); Glomerular Filtration Rate 111 ml/min (=/>90); Glucose Level 107 mg/dL (74-106); Potassium 3.5 mEq/L (3.5-5.1); Sodium Level 141 mEq/L (136-145)
[2022-09-08 16:10] LABS: Troponin High Sensitivity < 3.0 pg/mL (<58.9)
--- NOTE | 2022-09-08 16:19 | EDPHYS ---
Physician Documentation [facility] Name: Kate Ley Age: 26 yrs Sex: Female : 1995 Arrival Date: 09/08/2022 Time: 13:57 Bed 8 Private MD: ED Physician Jordan Payton HPI: 09/08 14:20 This 26 yrs old Female presents to ER via Ambulatory with complaints of Chest Pain, Rib jh7 pain. 14:20 Onset: The symptoms/episode began/occurred 1 month(s) ago. Associated signs and jh7 symptoms: Pertinent positives: chest pain, Pertinent negatives: abdominal pain, fever, shortness of breath, sore throat, vomiting, wheezing. 26-year-old female presents for intermittent chest pain and palpitations for 1 month. Reports a history of anxiety and takes hydroxyzine. Reports the pain is mild and describes it as a 2 out of 10. No other medical problems.. 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 - Social history:: Smoking status: Patient denies any tobacco usage or history of. Vital Signs: 14:19 BP 102 / 86; Pulse 92; Resp 16; Temp 98.2; Pulse Ox 100% on R/A; Weight 61.23 kg; hb Height 5 ft. 3 in. ; Pain 6/10; 14:19 Body Mass Index 23.91 (61.23 kg, 160.02 cm) hb 14:19 Pain Scale: Adult hb MDM: 14:02 Patient medically screened. [facility] 09/08 14:14 Order name: Basic Metabolic Panel; Complete Time: 16:12 [facility] 09/08 14:14 Order name: CBC with Diff; Complete Time: 16:12 [facility] 09/08 14:14 Order name: D-Dimer; Complete Time: 16:12 [facility] 09/08 14:14 Order name: Troponin HS; Complete Time: 16:12 [facility] 09/08 14:14 Order name: XRAY Chest (1 view); Complete Time: 15:03 [facility] 09/08 14:14 Order name: EKG; Complete Time: 14:15 [facility] 09/08 14:14 Order name: Cardiac monitoring; Complete Time: 15:41 [facility] 09/08 14:14 Order name: EKG - Nurse/Tech; Complete Time: 14:33 [facility] 09/08 14:14 Order name: IV Saline Lock; Complete Time: 15:39 [facility] 09/08 14:14 Order name: Labs collected and sent; Complete Time: 15:39 [facility] 09/08 14:14 Order name: O2 Per Protocol; Complete Time: 15:39 [facility] 09/08 14:14 Order name: O2 Sat Monitoring; Complete Time: 15:39 [facility] EC:31 Rate is 96 beats/min. Rhythm is irregular. QRS [place] is Normal. [place] interval is normal at [facility] 116 msec. QRS interval is normal at 78 msec. QT interval is normal at 338 msec. No Q waves. T waves are Normal. No ST changes noted. Clinical impression: Sinus arrythmia. Administered Medications: No medications were administered Disposition Summary: 09/08/22 16:19 Discharge Ordered Location: Home [facility] Problem: new [facility] Symptoms: have improved [facility] Condition: Stable [facility] Diagnosis - Chest pain, unspecified [facility] Followup: [facility] - With: Private Physician - When: 2 - 3 days - Reason: Recheck today's complaints Discharge Instructions: - Discharge Summary Sheet 7 - Nonspecific Chest Pain, Adult 7 - Chest Wall Pain [facility] - Electrocardiogram [facility] - Exercise Stress Test [facility] Forms: - Family Work Release iw - Medication Reconciliation Form [facility] - Thank You Letter [facility] Signatures: Dispatcher [employer] Toyin Lebron RN RN Bessy Hodgson, FARM CONTRACTOR FARM CONTRACTOR [facility] Corrections: (The following items were deleted from the chart) 16:31 14:20 This 26 yrs old Female presents to ER via Ambulatory with complaints of Chest 7 Pain, Rib pain. [facility]
--- NOTE | 2022-09-08 16:19 | ER ---
Nurse's Notes [facility] Name: Kate Ley Age: 26 yrs Sex: Female : 1995 Arrival Date: 09/08/2022 Time: 13:57 Bed 8 Private MD: Diagnosis: Chest pain, unspecified Presentation: 09/08 14:19 Chief complaint: Intermittent chest pressure and palpitations x months, left sided hb chest wall pain x 1 week. Coronavirus screen: At this time, the client does not indicate any symptoms associated with coronavirus-19. Ebola Screen: No symptoms or risks identified at this time. Initial Sepsis Screen: Does the patient meet any 2 criteria? No. Patient's initial sepsis screen is negative. Does the patient have a suspected source of infection? No. Patient's initial sepsis screen is negative. Risk Assessment: Do you want to hurt yourself or someone else? Patient reports no desire to harm self or others. Onset of symptoms is unknown. 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 - Social history:: Smoking status: Patient denies any tobacco usage or history of. Screenin:37 [facility] ED Fall Risk Assessment (Adult) History of falling in the last 3 months, iw including since admission. Abuse screen: Denies threats or abuse. Denies injuries from another. Nutritional screening: No deficits noted. Tuberculosis screening: No symptoms or risk factors identified. Assessment: 15:37 General: Appears in no apparent distress. Behavior is calm, cooperative. Pain: iw Complains of pain in mid-sternal area Pain does not radiate. Pain began. Neuro: Level of Consciousness is awake, alert, obeys commands. Cardiovascular: Capillary refill < 3 seconds in bilateral fingers Patient's skin is warm and dry. Vital Signs: 14:19 BP 102 / 86; Pulse 92; Resp 16; Temp 98.2; Pulse Ox 100% on R/A; Weight 61.23 kg; hb Height 5 ft. 3 in. ; Pain 6/10; 14:19 Body Mass Index 23.91 (61.23 kg, 160.02 cm) hb 14:19 Pain Scale: Adult hb ED Course: 13:59 Patient arrived in ED. mr 14:02 [facility] 14:02 Jordan Payton MD is Attending Physician. [facility] 14:21 Triage completed. hb 14:22 Arm band placed on. hb 14:26 EKG completed in triage. Results shown to MD. hb 14:42 XRAY Chest (1 view) In Process Unspecified. EDMS 15:26 Victoria Bolton, RN is Primary Nurse. iw 15:37 Inserted saline lock: 22 gauge in right antecubital area, using aseptic technique. iw Blood collected. Patient maintains SpO2 saturation greater than 95% on room air. 16:39 Patient has correct armband on for positive identification. Client placed on continuous iw cardiac and pulse oximetry monitoring. NIBP monitoring applied. 16:39 No provider procedures requiring assistance completed. IV discontinued, intact, iw bleeding controlled, No redness/swelling at site. Pressure dressing applied. Administered Medications: No medications were administered Medication: 15:37 VIS not applicable for this client. iw Outcome: 16:19 Discharge ordered by . [facility] 16:38 Discharged to home ambulatory, with family. iw 16:38 Condition: good 16:38 Discharge instructions given to patient, family, Instructed on discharge instructions, follow up and referral plans. Demonstrated understanding of instructions, follow-up care. 16:39 Patient left the ED. iw Signatures: Dispatcher [employer] EDMN Greta Win mr Victoria Bolton, RN JEREL Toyin Lo RN RN Bessy Aranda FNP [place] [id number]
[2022-09-08 16:44] VITALS: BP 102/86; TEMP 98.2; O2SAT 100
--- NOTE | 2022-09-10 15:25 | EKG ---
Test Date: 2022-09-08 Test Time: 14:31:10 [employer]: HB MEASUREMENT RESULTS: Intervals: Rate: 96 IN: 116 QRSD: 78 QT: 338 QTc: 427 [place]: P: 65 IN: 116 QRS: 75 T: 32 INTERPRETIVE STATEMENTS: Normal sinus rhythm with sinus arrhythmia Low voltage QRS Borderline ECG No previous ECG available for comparison Electronically Signed On 09-10-22 15:22:07 CDT by Stephan Miramontes
== END 2022-09-08 16:39 | disposition home or self-care (01) ==
LOC: ER 13:57
DX: R07.9 Chest pain, unspecified (principal); F41.9 Anxiety disorder, unspecified; Z88.0 Allergy status to penicillin
CPT/HCPCS: 36415; 71045; 80048; 84484; 85025; 85379; 93005

== ENCOUNTER 2024-04-22 18:09 | Emergency (ER) | payer SELFPAY ==
--- OUTSIDE RECORDS SUMMARY | 2024-04-22 18:15 | XMS REPORT | Continuity of Care Document ---
Author Name Unknown Address [address] [facility] [address] [place] [address] [facility] Address [address] [facility] 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 Name Role Phone TERRY WYNNE Primary Care Physician Jake Stiles Attending Clinician Unavailab KYLE Robledo Attending Clinician Unavailable Kyle Martin Attending Clinician [phone] Unknown, Attending Attending Clinician Unavailab ELLIOTT Haider Attending Clinician Unavailable Terry Wynne NP Attending Clinician [phone] Johnathan Valenzuela PA-C Attending Clinician JOHNATHAN VALENZUELA Attending Clinician Unavailable AMINA BAH Attending Clinician Unavailable Dmitry BECKHAM, Amina Mcgarry Attending Clinician [phone] Doctor Unassigned, [place] Attending Clinician U gurdeepailTERRY Robert Attending Clinician Unavailab SHANNA Arana Attending Clinician Unavailable Dany BECKHAM, Shanna Attending Clinician [phone] Lab, Ang - Db Attending Clinician Unavailable Lilly AVALOS, Hernan Attending Clinician + [phone] HERNAN BLOCK Attending Clinician Unavaildae Murray MD, Leanne Gracia Attending Clinician [phone], [facility] Attending Clinician Unavailable SARIAH Attending Clinician Unavailable Ishan BELTRÁN, Shelley Attending Clinician Unavailable Kaitlin Taveras Attending Clinician [phone] KAITLIN HUERTA Attending Clinician Unavailable Amarilis Berry Attending Clinician [phone] SIMEON Attending Clinician Unavailable Lamar Matthews Attending Clinician [phone] Regino Fernandes DO Attending Clinician [phone] Nurse, [facility] Attending Clinician Unava ilable UNKNOWN, ATTENDING Attending Clinician Unavailab Sanam Smith Attending Clinician + [phone] Teja Hudson Attending Clinician [phone] AMINA BAH Admitting Clinician Unavailable Jake Lewis Admitting Clinician Unavailab joaquín ROLLE Admitting Clinician Unavailable SIMEON Admitting Clinician Unavailable Dmitry BECKHAM, Amina Mcgarry Admitting Clinician [phone] Payers Payer Name Policy Type Policy Number Effective Date Expirati on Date Source [facility] MEDICAID [id number] 2019 00:00:00 [facility] (MEDICAID REPLACEMENT - HMO) [id number] 2019 00:00:00 Problems Condition Name Condition Details Condition Category Status Onset Date Resolution Date Last Treatment Date Treating Clinician Comments Source Irregular menstrual cycle Irregular menstrual cycle Disease Active 10-16 00:00: 00 [facility] BMI 25.0-25.9, adult BMI 25.0-25.9, adult Disease Active 10-16 00:00: 00 [facility] Menstrual period late Menstrual Period Late Problem Active 2020-04 00:00: 00 [facility] Contracept ion status not decided Contracept ion Status Not Decided Problem Active 2020-04 00:00: 00 [facility] History of SARS-CoV-2 History of SARS-CoV-2 Problem Active 2020-04 00:00[facility] Mixed anxiety and depressive disorder Mixed Anxiety and Depressive Disorder Problem Active 11-09 00:00: 00 [facility] Nausea Nausea Problem Active 11[facility]09 [facility] Mild intermitte nt asthma without complicati on Mild intermitte nt asthma without complicati on Disease Active 2018-04 00:00: 00 [facility] Previous section Previous section Disease Active 2018-04 00:00: 00 [facility] Normal in second trimester Normal in second trimester Disease Resolve d 2018-04 00:00: 00 2021-06-06 00:00:00 2021-06-06 13:36:47 [facility] 16 weeks gestation of 16 weeks gestation of Disease Resolve d 2018-04 00:00: 00 2021-06-06 00:00:00 2021-06-06 13:36:50 [facility] Supervisio n of other normal Supervisio n of other normal Disease Resolve d 2018-04 00:00: 00 2019-03-17 00:00:00 2019-03-17 20:11:03 [facility] History of spontaneou s , currently History of spontaneou s , currently Disease Resolve d 2018-04 00:00: 00 2019-03-17 00:00:00 2019-03-17 20:11:02 [facility] Multiparit y Multiparit y Disease Resolve d 2018-04 0-30 00:00: 00 2019-03-17 00:00:00 2019-03-17 20:11:02 [facility] Spotting in early Spotting in early Disease Resolve d 2018-04 0-30 00:00: 00 2019-03-17 00:00:00 2019-03-17 20:10:55 [facility] Vaginal yeast infection Vaginal yeast infection Disease Resolve d 2018-04 0-24 00:00: 00 2019-03-17 00:00:00 2019-03-17 20:10:56 [facility] Encounter for initial prescripti on of vaginal ring hormonal contracept mili Encounter for initial prescripti on of vaginal ring hormonal contracept mili Disease Resolve d 2017-04 2-12 00:00: 00 2019-03-17 00:00:00 2019-03-17 20:11:04 [facility] BV (bacterial vaginosis) BV (bacterial vaginosis) Disease Resolve d 2017-04 0-25 00:00: 00 2019-03-17 00:00:00 2019-03-17 20:10:55 [facility] Presence of of 52 mg levonorges trel-relea sing intrauteri ne device (IUD) Presence of of 52 mg levonorges trel-relea sing intrauteri ne device (IUD) Disease Resolve d 10-11 00:00: 00 2019-03-17 00:00:00 2019-03-17 20:11:05 [facility] Active labor Active labor Disease Resolve d 0 5-03 00:00: 00 2015 00:00:00 2015 15:03:04 [facility] Active labor at term Active labor at term Disease Resolve d 0 5-03 00:00: 00 2015 00:00:00 2015 15:03:01 [facility] Failure of descent in labor, delivered, current hospitaliz ation Failure of descent in labor, delivered, current hospitaliz ation Disease Resolve d 0 5-04 00:00: 00 2015-08-26 00:00:00 2015-08-26 12:38:18 [facility] Status post primary low transverse section Status post primary low transverse section Disease Resolve d 08-23 00:00: 00 2015-08-26 00:00:00 2015-08-26 12:38:18 [facility] Liveborn , of [place]unn , born in hospital by delivery Liveborn infant, of [place] , born in hospital by delivery Disease Resolve d 08-23 00:00: 00 2015-08-26 00:00:00 2015-08-26 12:38:18 [facility] Allergies, Adverse Reactions, Alerts Allergy Name Allergy Type Status Severity Reaction(s) Onset Date Inactive Date Treating Clinician Comments Source No Known Allergie s DA Active U 10-10 00:00: 00 [facility] No Known Allergie s DA Active U 10-10 00:00: 00 [facility] Azithrom ycin Propensi ty to adverse reaction s Active Shortness of Breath 08-22 00:00: 00 Heart raced [facility] AZITHROM YCIN DRUG INGREDI Active SOB 08-22 00:00: 00 [facility] Social History Social Habit Start Date Stop Date Quantity Comments Source Gender identity [facility] Alcoholic beverage intake 2023-10-11 00:00:00 2023-10-11 00:00:00 0 /d [facility] Alcohol intake 2023-07-22 00:00:00 2023-07-22 00:00:00 0 /d [facility] Exposure to SARS-CoV-2 (event) 2022-10-06 00:00:00 2022-10-16 13:45:00 Not sure [facility] History of Social function 2022-05-09 00:00:00 2022-05-09 00:00:00 [facility] Tobacco use and exposure 2021-12-02 00:00:00 2021-12-02 00:00:00 Smokeless tobacco non-user [facility] Sex assigned at 1995 00:00:00 1995 00:00:00 [facility] Smoking Status Start Date Stop Date Source Never smoked tobacco [facility] Medications Ordered Medication Name Filled Medication Name Start Date Stop Date Current Medication? Ordering Clinician Indication Dosage Frequency Signature (SIG) Comments Components Source amoxicillin -clavulanat e (AUGMENTIN) 875-125 mg per tablet 10-10 00:00: 00 10-21 04:59 :00 No [id number] 1{tbl} Take 1 tablet by mouth in the morning and 1 tablet in the evening. Do all this for 10 days. [facility] bromphenira mine-pseudo ephedrine-D M (BROMFED DM) 2-30-10 mg/5 mL syrup 10-10 00:00: 00 10-16 04:59 :00 No [id number] 5mL Take 5 mL by mouth 4 (four) times daily as needed for Congestion /Allergies for up to 5 days. [facility] hydrOXYzine 25 mg tablet 2022-04 00:00: 00 Yes [id number] 25mg Take 1 tablet by mouth every 8 (eight) hours as needed for Anxiety. Take 2 tablets nightly prn for Insomnia [facility] methylPREDN ISolone 4 mg tablets 2022-04 00:00: 00 Yes [id number] Take by mouth SEE-INSTRU CTIONS. follow package directions [facility] fluticasone propionate 50 mcg/actuati on nasal spray 2022-04 0 00:00: 00 Yes [id number] 2{spray } Use 2 Sprays in each nostril in the morning. [facility] cetirizine 10 mg tablet 2022-04 0 00:00: 00 Yes [id number] 10mg Take 1 tablet by mouth in the morning. [facility] amoxicillin 500 mg tablet 10-26 00:00: 00 11-06 04:59 :00 No [id number] 500mg Take 1 tablet by mouth in the morning and 1 tablet in the evening. Do all this for 10 days. [facility] hydrOXYzine 25 mg tablet 5-15 00:00: 00 03-07 00:00 :00 No [id number] 25mg Take 1 tablet by mouth every 8 (eight) hours as needed for Anxiety. Take 2 tablets nightly prn for Insomnia [facility] busPIRone 5 mg tablet 3- 00:00: 00 08-02 00:00 :00 No [id number] 5mg Take 1 tablet by mouth in the morning and 1 tablet in the evening. [facility] SERTraline 50 mg tablet 05-15 00:00: 00 08-02 00:00 :00 No [id number] 50mg Take 1 tablet by mouth in the morning. [facility] hydrOXYzine 25 mg tablet 05-15 00:00: 00 08-02 00:00 :00 No [id number] 25mg Take 1 tablet by mouth every 8 (eight) hours as needed for Anxiety. [facility] cyanocobala min (DODEX) injection 2,000 mcg 05-09 17:30: 00 05-09 16:33 :00 No [id number] 2000ug [facility] No known medications 05-09 10:12: 52 No No known medication s [facility] busPIRone 10 mg tablet 05-09 00:00: 00 05-15 00:00 :00 No [id number] 10mg Take 1 tablet by mouth in the morning and 1 tablet in the evening. [facility] cyanocobala min 1,000 mcg/mL injection 05-09 00:00: 00 05-09 00:00 :00 No [id number] 2000ug 2 mL by Intramuscu lar route once now for 1 dose. [facility] albuterol 90 mcg/actuati on inhaler 12-11 00:00: 00 05-09 00:00 :00 No [id number] 2{puff} Inhale 2 Puffs every 6 (six) hours as needed for Wheezing. [facility] fluticasone propionate 50 mcg/actuati on nasal spray 12-11 00:00: 00 05-09 00:00 :00 No [id number] 1{spray } Use 1 [place] in each nostril in the morning. [facility] amoxicillin -clavulanat e (AUGMENTIN) 875-125 mg per tablet 12-11 00:00: 00 12-19 04:59 :00 No [id number] 1{tbl} Take 1 tablet by mouth in the morning and 1 tablet in the evening. Do all this for 7 days. [facility] bromphenira mine-pseudo ephedrine-D M (BROMFED DM) 2-30-10 mg/5 mL syrup 12-03 00:00: 00 05-09 00:00 :00 No [id number] 10mL Take 10 mL by mouth 4 (four) times daily as needed for Congestion /Allergies , Cold symptoms or Cough. [facility] clonazePAM 0.5 mg tablet 09-06 00:00: 00 05-09 00:00 :00 No TAKE 1 TABLET BY MOUTH EVERY DAY FOR 15 DAYS NEEDED [facility] NUVARING 0.12-0.015 mg/24 hr vaginal insert 2-17 00:00: 00 05-09 00:00 :00 No [id number] 1{each} Insert 1 Each into vagina once every month. Insert vaginally and leave in place for 3 consecutiv e weeks, then remove for 1 week. [facility] paroxetine 10 mg tablet TAKE 1 TABLET BY MOUTH EVERY DAY DIRECTED paroxetine 10 mg tablet TAKE 1 TABLET BY MOUTH EVERY DAY DIRECTED 2020-04 1-10 00:00: 00 No paroxetine 10 mg tablet TAKE 1 TABLET BY MOUTH EVERY DAY DIRECTED [facility] albuterol 90 mcg/actuati on inhaler 2018-04 2 00:00: 00 12-11 00:00 :00 No 2{puff} Inhale 2 Puffs every 6 (six) hours as needed for Wheezing or Shortness of Breath. [facility] ondansetron 4 mg disintegrat ing tablet Place 1 tablet every 12 hours by translingua l route as needed for 14 days. ondansetron 4 mg disintegrat ing tablet Place 1 tablet every 12 hours by translingua l route as needed for 14 days. No 1 Q12H ondansetro n 4 mg disintegra ting tablet Place 1 tablet every 12 hours by translingu al route as needed for 14 days. [facility] Paxil 10 mg tablet Take 1 tablet every day by oral route as directed for 30 days. Paxil 10 mg tablet Take 1 tablet every day by oral route as directed for 30 days. No 1 Q1D Paxil 10 mg tablet Take 1 tablet every day by oral route as directed for 30 days. [facility] amoxicillin 400 mg/5 mL oral suspension TAKE 6.25 ML BY MOUTH EVERY 8 HOURS FOR 7 DAYS amoxicillin 400 mg/5 mL oral suspension TAKE 6.25 ML BY MOUTH EVERY 8 HOURS FOR 7 DAYS No amoxicilli n 400 mg/5 mL oral suspension TAKE 6.25 ML BY MOUTH EVERY 8 HOURS FOR 7 DAYS [facility] Medrol (Willy) 4 mg tablets in a dose pack Take 1 dose pk by oral route as directed for 6 days. Medrol (Willy) 4 mg tablets in a dose pack Take 1 dose pk by oral route as directed for 6 days. No 1dose pk(s) Medrol (Willy) 4 mg tablets in a dose pack Take 1 dose pk by oral route as directed for 6 days. [facility] paroxetine 10 mg tablet TAKE 1 TABLET BY MOUTH EVERY DAY DIRECTED paroxetine 10 mg tablet TAKE 1 TABLET BY MOUTH EVERY DAY DIRECTED No paroxetine 10 mg tablet TAKE 1 TABLET BY MOUTH EVERY DAY DIRECTED [facility] ivermectin 3 mg tablet Take 1 tablet twice a day by oral route as directed for 5 days. ivermectin 3 mg tablet Take 1 tablet twice a day by oral route as directed for 5 days. No 1 BID ivermectin 3 mg tablet Take 1 tablet twice a day by oral route as directed for 5 days. [facility] methylpredn isolone 4 mg tablets in a dose pack FOLLOW PACKAGE DIRECTIONS methylpredn isolone 4 mg tablets in a dose pack FOLLOW PACKAGE DIRECTIONS No methylpred nisolone 4 mg tablets in a dose pack FOLLOW PACKAGE DIRECTIONS [facility] prednisone 20 mg tablet Take 1 tablet twice a day by oral route as directed for 7 days. prednisone 20 mg tablet Take 1 tablet twice a day by oral route as directed for 7 days. No 1 BID prednisone 20 mg tablet Take 1 tablet twice a day by oral route as directed for 7 days. [facility] Zithromax Z-Willy 250 mg tablet TAKE 2 TABLETS (500 MG) BY ORAL ROUTE ONCE DAILY FOR 1 DAY THEN 1 TABLET (250 MG) BY ORAL ROUTE ONCE DAILY FOR 4 DAYS Zithromax Z-Willy 250 mg tablet TAKE 2 TABLETS (500 MG) BY ORAL ROUTE ONCE DAILY FOR 1 DAY THEN 1 TABLET (250 MG) BY ORAL ROUTE ONCE DAILY FOR 4 DAYS No Zithromax Z-Willy 250 mg tablet TAKE 2 TABLETS (500 MG) BY ORAL ROUTE ONCE DAILY FOR 1 DAY THEN 1 TABLET (250 MG) BY ORAL ROUTE ONCE DAILY FOR 4 DAYS [facility] Zithromax Z-Willy 250 mg tablet TAKE 2 TABLETS (500 MG) BY ORAL ROUTE ONCE DAILY FOR 1 DAY THEN 1 TABLET (250 MG) BY ORAL ROUTE ONCE DAILY FOR 4 DAYS Zithromax Z-Willy 250 mg tablet TAKE 2 TABLETS (500 MG) BY ORAL ROUTE ONCE DAILY FOR 1 DAY THEN 1 TABLET (250 MG) BY ORAL ROUTE ONCE DAILY FOR 4 DAYS No Zithromax Z-Willy 250 mg tablet TAKE 2 TABLETS (500 MG) BY ORAL ROUTE ONCE DAILY FOR 1 DAY THEN 1 TABLET (250 MG) BY ORAL ROUTE ONCE DAILY FOR 4 DAYS [facility] escitalopra m 10 mg tablet Take 1 tablet every day by oral route for 90 days. escitalopra m 10 mg tablet Take 1 tablet every day by oral route for 90 days. No 1 Q1D escitalopr am 10 mg tablet Take 1 tablet every day by oral route for 90 days. [facility] Klonopin 0.5 mg tablet Take 1 tablet every day by oral route as needed for 15 days. Klonopin 0.5 mg tablet Take 1 tablet every day by oral route as needed for 15 days. No 1 Q1D Klonopin 0.5 mg tablet Take 1 tablet every day by oral route as needed for 15 days. [facility] Immunizations Ordered Immunization Name Filled Immunization Name Date Status Comments Source influenza, injectable, quadrivalent influenza, injectable, quadrivalent 2020-02-04 00:00:00 Completed [facility] influenza, injectable, quadrivalent influenza, injectable, quadrivalent 2020-02-04 00:00:00 Completed [facility] Influenza Virus Vaccine Quad IM Multi-dose 6+ MO 2020-02-04 00:00:00 Completed [facility] Influenza Virus Vaccine Quad IM Multi-dose 6+ MO 2020-02-04 00:00:00 Completed [facility] Influenza Virus Vaccine Quad IM Multi-dose 6+ MO 2020-02-04 00:00:00 Completed [facility] Influenza Virus Vaccine Quad IM Multi-dose 6+ MO 2020-02-04 00:00:00 Completed [facility] Influenza Virus Vaccine Quad IM Multi-dose 6+ MO 2020-02-04 00:00:00 Completed [facility] Influenza Virus Vaccine Quad IM Multi-dose 6+ MO 2020-02-04 00:00:00 Completed [facility] Influenza Virus Vaccine Quad IM Multi-dose 6+ MO 2020-02-04 00:00:00 Completed [facility] Influenza Virus Vaccine Quad IM Multi-dose 6+ MO 2020-02-04 00:00:00 Completed [facility] Influenza Virus Vaccine Quad IM Multi-dose 6+ MO 2020-02-04 00:00:00 Completed [facility] Influenza Virus Vaccine Quad IM Multi-dose 6+ MO 2020-02-04 00:00:00 Completed [facility] Influenza Virus Vaccine Quad IM Multi-dose 6+ MO 2020-02-04 00:00:00 Completed [facility] Influenza Virus Vaccine Quad IM Multi-dose 6+ MO 2020-02-04 00:00:00 Completed [facility] Influenza Virus Vaccine Quad IM Multi-dose 6+ MO 2020-02-04 00:00:00 Completed [facility] Influenza Virus Vaccine Quad IM Multi-dose 6+ MO 2020-02-04 00:00:00 Completed [facility] Influenza Virus Vaccine Quad IM Multi-dose 6+ MO 2020-02-04 00:00:00 Completed [facility] Influenza Virus Vaccine Quad IM Multi-dose 6+ MO 2020-02-04 00:00:00 Completed [facility] Influenza Virus Vaccine Quad IM Multi-dose 6+ MO 2020-02-04 00:00:00 Completed [facility] Influenza Virus Vaccine Quad IM Multi-dose 6+ MO 2020-02-04 00:00:00 Completed [facility] Influenza Virus Vaccine Quad IM Multi-dose 6+ MO 2020-02-04 00:00:00 Completed [facility] Influenza Virus Vaccine Quad IM Multi-dose 6+ MO 2020-02-04 00:00:00 Completed [facility] Influenza Virus Vaccine Quad IM Multi-dose 6+ MO 2020-02-04 00:00:00 Completed [facility] Influenza Virus Vaccine Quad IM Multi-dose 6+ MO 2020-02-04 00:00:00 Completed [facility] Influenza Virus Vaccine Quad IM Multi-dose 6+ MO 2020-02-04 00:00:00 Completed [facility] Influenza Virus Vaccine Quad IM Multi-dose 6+ MO 2020-02-04 00:00:00 Completed [facility] Influenza Virus Vaccine Quad IM Multi-dose 6+ MO 2020-02-04 00:00:00 Completed [facility] Influenza Virus Vaccine Quad .5 mL IM 6+ MO 2019-03-17 00:00:00 Completed [facility] Influenza Virus Vaccine Quad .5 mL IM 6+ MO 2019-03-17 00:00:00 Completed [facility] Influenza Virus Vaccine Quad .5 mL IM 6+ MO 2019-03-17 00:00:00 Completed [facility] Influenza Virus Vaccine Quad .5 mL IM 6+ MO 2019-03-17 00:00:00 Completed [facility] Influenza Virus Vaccine Quad .5 mL IM 6+ MO (FLUZONE/FLULAVAL/F LUARIX) 2019-03-17 00:00:00 Completed [facility] Influenza Virus Vaccine Quad .5 mL IM 6+ MO (FLUZONE/FLULAVAL/F LUARIX) 2019-03-17 00:00:00 Completed [facility] Influenza Virus Vaccine Quad .5 mL IM 6+ MO 2019-03-17 00:00:00 Completed [facility] Influenza Virus Vaccine Quad .5 mL IM 6+ MO 2019-03-17 00:00:00 Completed [facility] Influenza Virus Vaccine Quad .5 mL IM 6+ MO 2019-03-17 00:00:00 Completed [facility] Influenza Virus Vaccine Quad .5 mL IM 6+ MO 2019-03-17 00:00:00 Completed [facility] Influenza Virus Vaccine Quad .5 mL IM 6+ MO 2019-03-17 00:00:00 Completed [facility] Influenza Virus Vaccine Quad .5 mL IM 6+ MO 2019-03-17 00:00:00 Completed [facility] Influenza Virus Vaccine Quad .5 mL IM 6+ MO 2019-03-17 00:00:00 Completed [facility] Influenza Virus Vaccine Quad .5 mL IM 6+ MO 2019-03-17 00:00:00 Completed [facility] Influenza Virus Vaccine Quad .5 mL IM 6+ MO 2019-03-17 00:00:00 Completed [facility] Influenza Virus Vaccine Quad .5 mL IM 6+ MO 2019-03-17 00:00:00 Completed [facility] Influenza Virus Vaccine Quad .5 mL IM 6+ MO 2019-03-17 00:00:00 Completed [facility] Influenza Virus Vaccine Quad .5 mL IM 6+ MO 2019-03-17 00:00:00 Completed [facility] Influenza Virus Vaccine Quad .5 mL IM 6+ MO 2019-03-17 00:00:00 Completed [facility] Influenza Virus Vaccine Quad .5 mL IM 6+ MO 2019-03-17 00:00:00 Completed [facility] Influenza Virus Vaccine Quad .5 mL IM 6+ MO 2019-03-17 00:00:00 Completed [facility] Influenza Virus Vaccine Quad .5 mL IM 6+ MO 2019-03-17 00:00:00 Completed [facility] Influenza Virus Vaccine Quad .5 mL IM 6+ MO 2019-03-17 00:00:00 Completed [facility] Influenza Virus Vaccine Quad .5 mL IM 6+ MO 2019-03-17 00:00:00 Completed [facility] Influenza Virus Vaccine Quad .5 mL IM 6+ MO 2019-03-17 00:00:00 Completed [facility] TDAP (ADACEL) VACCINE 2016-02-13 00:00:00 Completed [facility] TDAP (ADACEL) VACCINE 2016-02-13 00:00:00 Completed [facility] TDAP (ADACEL) VACCINE 2016-02-13 00:00:00 Completed [facility] TDAP (ADACEL) VACCINE 2016-02-13 00:00:00 Completed [facility] TDAP (ADACEL) VACCINE 2016-02-13 00:00:00 Completed [facility] TDAP (ADACEL) VACCINE 2016-02-13 00:00:00 Completed [facility] TDAP (ADACEL) VACCINE 2016-02-13 00:00:00 Completed [facility] TDAP (ADACEL) VACCINE 2016-02-13 00:00:00 Completed [facility] TDAP (ADACEL) VACCINE 2016-02-13 00:00:00 Completed [facility] TDAP (ADACEL) VACCINE 2016-02-13 00:00:00 Completed [facility] TDAP (ADACEL) VACCINE 2016-02-13 00:00:00 Completed [facility] TDAP (ADACEL) VACCINE 2016-02-13 00:00:00 Completed [facility] TDAP (ADACEL) VACCINE 2016-02-13 00:00:00 Completed [facility] TDAP (ADACEL) VACCINE 2016-02-13 00:00:00 Completed [facility] TDAP (ADACEL) VACCINE 2016-02-13 00:00:00 Completed [facility] TDAP (ADACEL) VACCINE 2016-02-13 00:00:00 Completed [facility] TDAP (ADACEL) VACCINE 2016-02-13 00:00:00 Completed [facility] TDAP (ADACEL) VACCINE 2016-02-13 00:00:00 Com[facility] Branch TDAP (ADACEL) VACCINE 2016-02-13 00:00:00 Completed [facility] TDAP (ADACEL) VACCINE 2016-02-13 00:00:00 Completed [facility] TDAP (ADACEL) VACCINE 2016-02-13 00:00:00 Completed [facility] TDAP (ADACEL) VACCINE 2016-02-13 00:00:00 Completed [facility] TDAP (ADACEL) VACCINE 2016-02-13 00:00:00 Completed [facility] TDAP (ADACEL) VACCINE 2016-02-13 00:00:00 Completed [facility] TDAP (ADACEL) VACCINE 2016-02-13 00:00:00 Completed [facility] MMR 2015-08-25 00:00:00 Completed [facility] MMR 2015-08-25 00:00:00 Completed [facility] MMR 2015-08-25 00:00:00 Completed [facility] MMR 2015-08-25 00:00:00 Completed [facility] MMR 2015-08-25 00:00:00 Completed [facility] MMR 2015-08-25 00:00:00 Completed [facility] MMR 2015-08-25 00:00:00 Completed [facility] MMR 2015-08-25 00:00:00 Completed [facility] MMR 2015-08-25 00:00:00 Completed [facility] MMR 2015-08-25 00:00:00 Completed [facility] MMR 2015-08-25 00:00:00 Completed [facility] MMR 2015-08-25 00:00:00 Completed [facility] MMR 2015-08-25 00:00:00 Completed [facility] MMR 2015-08-25 00:00:00 Completed [facility] MMR 2015-08-25 00:00:00 Completed [facility] MMR 2015-08-25 00:00:00 Completed [facility] MMR 2015-08-25 00:00:00 Completed [facility] MMR 2015-08-25 00:00:00 Completed [facility] MMR 2015-08-25 00:00:00 Completed [facility] MMR 2015-08-25 00:00:00 Completed [facility] MMR 2015-08-25 00:00:00 Completed [facility] MMR 2015-08-25 00:00:00 Completed [facility] MMR 2015-08-25 00:00:00 Completed [facility] MMR 2015-08-25 00:00:00 Completed [facility] MMR 2015-08-25 00:00:00 Completed [facility] HPV 2009-02-12 00:00:00 Completed [facility] HPV 2009-02-12 00:00:00 Completed [facility] HPV 2009-02-12 00:00:00 Completed [facility] HPV 2009-02-12 00:00:00 Completed [facility] HPV 2009-02-12 00:00:00 Completed [facility] HPV 2009-02-12 00:00:00 Completed [facility] HPV 2009-02-12 00:00:00 Completed [facility] HPV 2009-02-12 00:00:00 Completed [facility] HPV 2009-02-12 00:00:00 Completed [facility] HPV 2009-02-12 00:00:00 Completed [facility] HPV 2009-02-12 00:00:00 Completed [facility] HPV 2009-02-12 00:00:00 Completed [facility] HPV 2009-02-12 00:00:00 Completed [facility] HPV 2009-02-12 00:00:00 Completed [facility] HPV 2009-02-12 00:00:00 Completed [facility] HPV 2009-02-12 00:00:00 Completed [facility] HPV 2009-02-12 00:00:00 Completed [facility] HPV 2009-02-12 00:00:00 Completed [facility] HPV 2009-02-12 00:00:00 Completed [facility] HPV 2009-02-12 00:00:00 Completed [facility] HPV 2009-02-12 00:00:00 Completed [facility] HPV 2009-02-12 00:00:00 Completed [facility] HPV 2009-02-12 00:00:00 Completed [facility] HPV 2009-02-12 00:00:00 Completed [facility] HPV 2009-02-12 00:00:00 Completed [facility] HPV 2008-02-13 00:00:00 Completed [facility] HPV 2008-02-13 00:00:00 Completed [facility] HPV 2008-02-13 00:00:00 Completed [facility] HPV 2008-02-13 00:00:00 Completed [facility] HPV 2008-02-13 00:00:00 Completed [facility] HPV 2008-02-13 00:00:00 Completed [facility] HPV 2008-02-13 00:00:00 Completed [facility] HPV 2008-02-13 00:00:00 Completed [facility] HPV 2008-02-13 00:00:00 Completed [facility] HPV 2008-02-13 00:00:00 Completed [facility] HPV 2008-02-13 00:00:00 Completed [facility] HPV 2008-02-13 00:00:00 Completed [facility] HPV 2008-02-13 00:00:00 Completed [facility] HPV 2008-02-13 00:00:00 Completed [facility] HPV 2008-02-13 00:00:00 Completed [facility] HPV 2008-02-13 00:00:00 Completed [facility] HPV 2008-02-13 00:00:00 Completed [facility] HPV 2008-02-13 00:00:00 Completed [facility] HPV 2008-02-13 00:00:00 Completed [facility] HPV 2008-02-13 00:00:00 Completed [facility] HPV 2008-02-13 00:00:00 Completed [facility] HPV 2008-02-13 00:00:00 Completed [facility] HPV 2008-02-13 00:00:00 Completed [facility] HPV 2008-02-13 00:00:00 Completed [facility] HPV 2008-02-13 00:00:00 Completed [facility] DTP 1996-04-27 00:00:00 Completed [facility] Hep B, Adol or Pedi Dosage 1996-04-27 00:00:00 Completed [facility] HIB 4 Dose Schedule 1996-04-27 00:00:00 Completed [facility] Polio (IPV/OPV) 1996-04-27 00:00:00 Completed [facility] DTP 1996-02-18 00:00:00 Completed [facility] HIB 4 Dose Schedule 1996-02-18 00:00:00 Completed [facility] Polio (IPV/OPV) 1996-02-18 00:00:00 Completed [facility] DTP 1995 00:00:00 Completed [facility] Hep B, Adol or Pedi Dosage 1995 00:00:00 Completed [facility] HIB 4 Dose Schedule 1995 00:00:00 Completed [facility] Polio (IPV/OPV) 1995 00:00:00 Completed [facility] Hep B, Adol or Pedi Dosage 1995 00:00:00 Completed [facility] MMR Unknown Completed [facility] HPV Unknown Completed [facility] TDAP (ADACEL) VACCINE Unknown Completed [facility] Influenza Virus Vaccine Quad .5 mL IM 6+ MO (FLUZONE/FLULAVAL/F LUARIX) Unknown Completed [facility] Influenza Virus Vaccine Quad IM Multi-dose 6+ MO Unknown Completed [facility] MMR Unknown Completed [facility] HPV Unknown Completed [facility] TDAP (ADACEL) VACCINE Unknown Completed [facility] Influenza Virus Vaccine Quad .5 mL IM 6+ MO (FLUZONE/FLULAVAL/F LUARIX) Unknown Completed [facility] Influenza Virus Vaccine Quad IM Multi-dose 6+ MO Unknown Completed [facility] MMR Unknown Completed [facility] HPV Unknown Completed [facility] TDAP (ADACEL) VACCINE Unknown Completed [facility] Influenza Virus Vaccine Quad .5 mL IM 6+ MO (FLUZONE/FLULAVAL/F LUARIX) Unknown Completed [facility] Influenza Virus Vaccine Quad IM Multi-dose 6+ MO Unknown Completed [facility] MMR Unknown Completed [facility] HPV Unknown Completed [facility] TDAP (ADACEL) VACCINE Unknown Completed [facility] Influenza Virus Vaccine Quad .5 mL IM 6+ MO (FLUZONE/FLULAVAL/F LUARIX) Unknown Completed [facility] Influenza Virus Vaccine Quad IM Multi-dose 6+ MO Unknown Completed [facility] MMR Unknown Completed [facility] TDAP (ADACEL) VACCINE Unknown Completed [facility] Influenza Virus Vaccine Quad .5 mL IM 6+ MO (FLUZONE/FLULAVAL/F LUARIX) Unknown Completed [facility] Influenza Virus Vaccine Quad IM Multi-dose 6+ MO Unknown Completed [facility] HPV Unknown Completed [facility] MMR Unknown Completed [facility] HPV Unknown Completed [facility] TDAP (ADACEL) VACCINE Unknown Completed [facility] Influenza Virus Vaccine Quad .5 mL IM 6+ MO (FLUZONE/FLULAVAL/F LUARIX) Unknown Completed [facility] Influenza Virus Vaccine Quad IM Multi-dose 6+ MO Unknown Completed [facility] Vital Signs Vital Name Observation Time Observation Value Comments Mariah blakely Systolic blood pressure 2023-10-11 18:57:00 116 mm[Hg] [facility] Diastolic blood pressure 2023-10-11 18:57:00 84 mm[Hg] [facility] Heart rate 2023-10-11 18:57:00 113 /min [facility] Body temperature 2023-10-11 18:57:00 37.11 Mel[place] [facility] Respiratory rate 2023-10-11 18:57:00 20 /min [facility] Body height 2023-10-11 18:57:00 162.6 cm [facility] Body weight 2023-10-11 18:57:00 66.316 kg [facility] BMI 2023-10-11 18:57:00 25.10 kg/m2 [facility] Oxygen saturation in Arterial blood by Pulse oximetry 2023-10-11 18:57:00 95 /min [facility] Systolic blood pressure 2023-07-22 18:20:00 108 mm[Hg] [facility] Diastolic blood pressure 2023-07-22 18:20:00 75 mm[Hg] [facility] Heart rate 2023-07-22 18:18:00 82 /min [facility] Respiratory rate 2023-07-22 18:18:00 18 /min [facility] Body height 2023-07-22 18:18:00 162.6 cm [facility] Body weight 2023-07-22 18:18:00 66.679 kg [facility] BMI 2023-07-22 18:18:00 25.23 kg/m2 [facility] Systolic blood pressure 2023-01-25 23:01:00 117 mm[Hg] [facility] Diastolic blood pressure 2023-01-25 23:01:00 84 mm[Hg] [facility] Heart rate 2023-01-25 23:01:00 90 /min [facility] Body temperature 2023-01-25 23:01:00 36.56 Mel[place] [facility] Respiratory rate 2023-01-25 23:01:00 14 /min [facility] Body height 2023-01-25 23:01:00 165.1 cm [facility] weight 2023-01-25 23:01:00 64.91 kg [facility] BMI 2023-01-25 23:01:00 23.81 kg/m2 [facility] Oxygen saturation in Arterial blood by Pulse oximetry 2023-01-25 23:01:00 99 /min [facility] Systolic blood pressure 2022-12-28 18:27:00 100 mm[Hg] [facility] Diastolic blood pressure 2022-12-28 18:27:00 67 mm[Hg] [facility] Heart rate 2022-12-28 18:27:00 87 /min [facility] Respiratory rate 2022-12-28 18:27:00 18 /min [facility] Body height 2022-12-28 18:27:00 165.1 cm [facility] Body weight 2022-12-28 18:27:00 65.772 kg [facility] BMI 2022-12-28 18:27:00 24.13 kg/m2 [facility] Systolic blood pressure 2022-11-13 01:03:00 104 mm[Hg] [facility] Diastolic blood pressure 2022-11-13 01:03:00 66 mm[Hg] [facility] Heart rate 2022-11-13 01:03:00 76 /min [facility] Body temperature 2022-11-13 01:03:00 36.67 Mel[place] [facility] Respiratory rate 2022-11-13 01:03:00 16 /min [facility] Body height 2022-11-13 01:03:00 162.6 cm [facility] Body weight 2022-11-13 01:03:00 65.59 kg [facility] BMI 2022-11-13 01:03:00 24.82 kg/m2 [facility] Oxygen saturation in Arterial blood by Pulse oximetry 2022-11-13 01:03:00 100 /min [facility] Systolic blood pressure 2022-10-26 23:11:00 107 mm[Hg] [facility] Diastolic blood pressure 2022-10-26 23:11:00 73 mm[Hg] [facility] Heart rate 2022-10-26 23:11:00 80 /min [facility] Body temperature 2022-10-26 23:11:00 37.28 Mel[place] [facility] Respiratory rate 2022-10-26 23:11:00 16 /min [facility] Body weight 2022-10-26 23:11:00 65.772 kg [facility] BMI 2022-10-26 23:11:00 24.89 kg/m2 [facility] Oxygen saturation in Arterial blood by Pulse oximetry 2022-10-26 23:11:00 100 /min [facility] Systolic blood pressure 2022-10-16 19:36:00 93 mm[Hg] [facility] Diastolic blood pressure 2022-10-16 19:36:00 60 mm[Hg] [facility] Heart rate 2022-10-16 19:36:00 76 /min [facility] Body temperature 2022-10-16 19:36:00 36.72 [place] [facility] Respiratory rate 2022-10-16 19:36:00 16 /min [facility] Body height 2022-10-16 19:36:00 162.6 cm [facility] Body weight 2022-10-16 19:36:00 66.134 kg [facility] BMI 2022-10-16 19:36:00 25.03 kg/m2 [facility] Oxygen saturation in Arterial blood by Pulse oximetry 2022-10-16 19:36:00 98 /min [facility] Systolic blood pressure 2022-09-03 17:19:00 123 mm[Hg] [facility] Diastolic blood pressure 2022-09-03 17:19:00 77 mm[Hg] [facility] Heart rate 2022-09-03 17:19:00 82 /min [facility] Body temperature 2022-09-03 17:19:00 36.44 [place] [facility] Respiratory rate 2022-09-03 17:19:00 18 /min [facility] Body height 2022-09-03 17:19:00 157.5 cm [facility] Body weight 2022-09-03 17:19:00 64.955 kg [facility] BMI 2022-09-03 17:19:00 26.19 kg/m2 [facility] Oxygen saturation in Arterial blood by Pulse oximetry 2022-09-03 17:19:00 95 /min [facility] Systolic blood pressure 2022-08-02 15:40:00 97 mm[Hg] [facility] Diastolic blood pressure 2022-08-02 15:40:00 65 mm[Hg] [facility] Heart rate 2022-08-02 15:40:00 80 /min [facility] Body temperature 2022-08-02 15:40:00 37.06 [place] [facility] Body height 2022-08-02 15:40:00 157.5 cm [facility] Body weight 2022-08-02 15:40:00 63.957 kg [facility] BMI 2022-08-02 15:40:00 25.79 kg/m2 [facility] Systolic blood pressure 2022-05-09 15:42:00 98 mm[Hg] [facility] Diastolic blood pressure 2022-05-09 15:42:00 63 mm[Hg] [facility] Heart rate 2022-05-09 15:42:00 90 /min [facility] Body temperature 2022-05-09 15:42:00 36.67 E[place] [facility] Respiratory rate 2022-05-09 15:42:00 18 /min [facility] Body height 2022-05-09 15:42:00 157.5 cm [facility] Body weight 2022-05-09 15:42:00 63.368 kg [facility] BMI 2022-05-09 15:42:00 25.55 kg/m2 [facility] Oxygen saturation in Arterial blood by Pulse oximetry 2022-05-09 15:42:00 99 /min [facility] Systolic blood pressure 2021-12-11 16:52:00 103 mm[Hg] [facility] Diastolic blood pressure 2021-12-11 16:52:00 69 mm[Hg] [facility] Heart rate 2021-12-11 16:52:00 80 /min [facility] Body temperature 2021-12-11 16:52:00 37.06 [place] [facility] Respiratory rate 2021-12-11 16:52:00 17 /min [facility] Body height 2021-12-11 16:52:00 162.6 cm [facility] Body weight 2021-12-11 16:52:00 62.188 kg [facility] BMI 2021-12-11 16:52:00 23.53 kg/m2 [facility] Oxygen saturation in Arterial blood by Pulse oximetry 2021-12-11 16:52:00 100 /min [facility] Systolic blood pressure 2021-12-02 17:11:00 102 mm[Hg] [facility] Diastolic blood pressure 2021-12-02 17:11:00 67 mm[Hg] [facility] Heart rate 2021-12-02 17:11:00 114 /min [facility] Body temperature 2021-12-02 17:11:00 37.17 [place] [facility] Respiratory rate 2021-12-02 17:11:00 17 /min [facility] Body height 2021-12-02 17:11:00 165.1 cm [facility] Body weight 2021-12-02 17:11:00 62.143 kg [facility] BMI 2021-12-02 17:11:00 22.80 kg/m2 [facility] Oxygen saturation in Arterial blood by Pulse oximetry 2021-12-02 17:11:00 99 /min [facility] BP Diastolic 2021-09-06 00:00:00 69 mm[Hg] [facility] Height 2021-09-06 00:00:00 65.5 [in_i] [facility] BMI (Body Mass Index) 2021-09-06 00:00:00 22.6 kg/m2 [facility] BP Systolic 2021-09-06 00:00:00 94 mm[Hg] [facility] Body Weight 2021-09-06 00:00:00 2208 [oz_av] [facility] BP Diastolic 2021-03-01 00:00:00 63 mm[Hg] [facility] Height 2021-03-01 00:00:00 65.5 [in_i] [facility] BMI (Body Mass Index) 2021-03-01 00:00:00 22.8 kg/m2 [facility] BP Systolic 2021-03-01 00:00:00 110 mm[Hg] [facility] Body Weight 2021-03-01 00:00:00 2230.4 [oz_av] [facility] BP Diastolic 2021-02-20 00:00:00 81 mm[Hg] [facility] Height 2021-02-20 00:00:00 65.5 [in_i] [facility] BMI (Body Mass Index) 2021-02-20 00:00:00 22.8 kg/m2 [facility] BP Systolic 2021-02-20 00:00:00 117 mm[Hg] [facility] Body Weight 2021-02-20 00:00:00 2224 [oz_av] [facility] BP Diastolic 2020-12-21 00:00:00 70 mm[Hg] [facility] Height 2020-12-21 00:00:00 65.5 [in_i] [facility] BMI (Body Mass Index) 2020-12-21 00:00:00 23 kg/m2 [facility] BP Systolic 2020-12-21 00:00:00 112 mm[Hg] [facility] Body Weight 2020-12-21 00:00:00 2243.2 [oz_av] [facility] BP Diastolic 2020-12-13 00:00:00 70 mm[Hg] [facility] Height 2020-12-13 00:00:00 65.5 [in_i] [facility] BMI (Body Mass Index) 2020-12-13 00:00:00 22.6 kg/m2 [facility] BP Systolic 2020-12-13 00:00:00 106 mm[Hg] [facility] Body Weight 2020-12-13 00:00:00 2208 [oz_av] [facility] BP Diastolic 2020-12-08 00:00:00 72 mm[Hg] [facility] Height 2020-12-08 00:00:00 65.5 [in_i] [facility] BMI (Body Mass Index) 2020-12-08 00:00:00 22.9 kg/m2 [facility] BP Systolic 2020-12-08 00:00:00 106 mm[Hg] [facility] Body Weight 2020-12-08 00:00:00 2236.8 [oz_av] [facility] BP Diastolic 2020-11-09 00:00:00 76 mm[Hg] [facility] Height 2020-11-09 00:00:00 65.5 [in_i] [facility] BMI (Body Mass Index) 2020-11-09 00:00:00 23.3 kg/m2 [facility] BP Systolic 2020-11-09 00:00:00 112 mm[Hg] [facility] Body Weight 2020-11-09 00:00:00 2278.4 [oz_av] [facility] BMI (Body Mass Index) 2020-07-04 00:00:00 22.9 kg/m2 [facility] BP Systolic 2020-07-04 00:00:00 116 mm[Hg] [facility] Body Weight 2020-07-04 00:00:00 2240 [oz_av] [facility] BP Diastolic 2020-07-04 00:00:00 66 mm[Hg] [facility] Height 2020-07-04 00:00:00 65.5 [in_i] [facility] Height 2020-05-02 00:00:00 65.5 [in_i] [facility] BP Diastolic 2020-04-28 00:00:00 62 mm[Hg] [facility] Height 2020-04-28 00:00:00 65.5 [in_i] [facility] BMI (Body Mass Index) 2020-04-28 00:00:00 22.5 kg/m2 [facility] BP Systolic 2020-04-28 00:00:00 106 mm[Hg] [facility] Body Weight 2020-04-28 00:00:00 2195.2 [oz_av] [facility] Procedures Procedure Date / Time Performed Performing Clinician Source POCT SARS-COV-2 ANTIGEN (BINAX NOW) 2023-10-11 19:15:00 Shanna Saenz [facility] POCT MOLECULAR FLU 2023-10-11 19:06:00 Unknown, Attend [facility] POCT MOLECULAR STREP 2023-10-11 19:03:00 [facility] 2023-07-22 00:00:00 Elliott Flores [facility] CONSENT/REFUSAL FOR DIAGNOSIS AND TREATMENT 2022-12-28 18:17:27 Doctor Unassigned, [place] [facility] POCT URINALYSIS W/O SPECIFIC GRAVITY 2022-12-28 00:00:00 Amina Bah [facility] POCT MOLECULAR STREP 2022-11-13 01:11:00 Unknown, Donnie ko [facility] POCT MOLECULAR STREP 2022-10-26 23:10:00 Unknown, Attjuventino ko [facility] FREE T4 2022-10-16 20:24:00 [facility] THYROID STIMULATING HORMONE 2022-10-16 20:24:00 Hernan Block [facility] COMP. METABOLIC PANEL ([id number]) 2022-10-16 20:24:00 Hernan Block [facility] CBC WITH DIFF 2022-10-16 20:24:00 Hernan Block [facility] FREE T3 2022-10-16 20:24:00 Hernan Block [facility] POCT TEST 2022-08-02 00:00:00 Amina Bah [facility] CBC WITH DIFF 2022-05-09 16:48:00 Terry Wynne [facility] ASSIGNMENT OF BENEFITS 2021-12-11 16:45:15 Docto r Unassigned, [place] [facility] POCT MOLECULAR STREP 2021-12-02 17:18:00 La Huerta [facility] US, duplex, venous, lower extremity, complete 2020-12-21 00:00:00 [facility] XR, chest, 2 view 2020-12-13 00:00:00 [facility] electrocardiogram, routine ECG, 12 leads min 2020-04-28 00:00:00 [facility] XR, chest, 2 view 2020-04-28 00:00:00 [facility] [id number] 2019-10-22 00:00:00 [facility] Plan of Care Planned Activity Planned Date Details Comments Source Diagnostic Test Pending 2021-03-01 00:00:00 test, urine [code = test, urine] [facility] Instructions [facility] Encounters Start Date/Time End Date/Time Encounter Type Admission Type Attending Clinicians Care Facility Care Department Encounter ID Source 2021-02-16 11:52:25 Outpatient P [facility] [id number] [facility] 2021-02-16 11:52:19 Outpatient P [facility] [id number] [facility] 2019-10-22 12:00:00 Inpatient Jake [place] [facility] [id number] [facility] 2019-10-18 22:17:00 Inpatient Jake Lewis [facility] [id number] [facility] 2019-10-10 23:59:00 Inpatient Jake Lewis [facility] [id number] [facility] 2023-10-11 13:40:00 2023-10-11 14:24:06 Outpatient R KYLE FRANCO [facility] [id number] [facility] 2023-10-11 13:40:00 2023-10-11 14:24:06 Urgent Care Kyle Franco Unknown, Attending [facility] 1..840.114 350.1.13.10 4.2.7.2.686 [id number] [facility] 2023-09-23 11:30:00 2023-09-23 11:30:00 Outpatient R ELLIOTT FLORES [facility] [id number] [facility] 2023-07-22 13:30:00 2023-07-22 13:49:14 Outpatient R ELLIOTT FLORES [facility] [id number] [facility] 2023-07-22 13:30:00 2023-07-22 13:49:14 Office Visit Elliott Flores [facility] 1.840.114 350.1.13.10 4.2.7.2.686 [id number] [facility] 2023-03-07 00:00:00 2023-03-07 00:00:00 Refill Terry Wynne [facility] 1..840.114 350.1.13.10 4.2.7.2.686 [id number] [facility] 2023-03-07 00:00:00 2023-03-07 00:00:00 Refill Leticia Wynnenegro [facility] 1.84.114 350.1.13.10 4.2.7.2.686 [id number] [facility] 2023-02-21 00:00:00 2023-02-21 00:00:00 Refill Johnathan Valenzuela [facility] 1.84.114 350.1.13.10 4.2.7.2.686 [id number] [facility] 2023-01-25 17:40:00 2023-01-25 18:10:34 Outpatient R JOHNATHAN VALENZUELA [facility] [id number] [facility] 2023-01-25 17:40:00 2023-01-25 18:00:00 Urgent Care Johnathan Valenzuela Unknown, Attending [facility] 1.84.114 350.1.13.10 4.2.7.2.686 [id number] [facility] 2022-12-28 13:30:00 2022-12-28 13:45:06 Outpatient AMINA WEISS [facility] [id number] [facility] 2022-12-28 13:30:00 2022-12-28 13:45:06 Office Visit Amina Bah [facility] 1..114 350.1.13.10 4.2.7.2.686 [id number] [facility] 2022-12-28 13:30:00 2022-12-28 13:30:00 Outpatient AMINA WEISS [facility] [id number] [facility] 2022-12-28 00:00:00 2022-12-28 00:00:00 Orders Only Doctor Unassigned, [place] [facility] 1..114 350.1.13.10 4.2.7.2.686 [id number] [facility] 2022-11-12 20:00:00 2022-11-12 20:20:00 Urgent Care Kyle Franco Unknown, Attending [facility] 1.114 350.1.13.10 4.2.7.2.686 [id number] [facility] 2022-11-12 20:00:00 2022-11-12 20:00:00 Outpatient R KYLE FRANCO [facility] [id number] [facility] 2022-11-05 13:30:00 2022-11-05 13:30:00 Outpatient R TERRY WYNNE OGECHUKWU [facility] [id number] [facility] 2022-10-26 18:00:00 2022-10-26 18:17:05 Outpatient R SHANNA SAENZ [facility] [id number] [facility] 2022-10-26 18:00:00 2022-10-26 18:17:05 Urgent Care Shanna Saenz Unknown, Attending [facility] 1.114 350.1.13.10 4.2.7.2.686 [id number] [facility] 2022-10-16 15:30:00 2022-10-16 16:47:54 Shot Examiner Visit Lab, Ang - Db Hernan Block [facility] 1.114 350.1.13.10 4.2.7.2.686 [id number] [facility] 2022-10-16 15:00:00 2022-10-16 15:00:00 Office Visit Hernan Block [facility] 1.114 350.1.13.10 4.2.7.2.686 [id number] [facility] 2022-10-16 15:00:00 2022-10-16 14:50:26 Outpatient R HERNAN BLOCK CHERYAL [facility] [id number] [facility] 2022-09-03 13:00:00 2022-09-03 13:36:22 Outpatient R TERRY WYNNE OGECHUKWU [facility] [id number] [facility] 2022-09-03 13:00:00 2022-09-03 13:36:22 Office Visit Terry Wynne [facility] 1.2.840.114 350.1.13.10 4.2.7.2.686 [id number] [facility] 2022-09-03 00:00:00 2022-09-03 00:00:00 Telephone Amina Bah [facility] 1.2.840.114 350.1.13.10 4.2.7.2.686 [id number] [facility] 2022-08-22 13:30:00 2022-08-22 13:30:00 Outpatient R AMINA BAH [facility] [id number] [facility] 2022-08-02 11:00:00 2022-08-02 11:00:00 Office Visit Amina Bah [facility] 1.2.840.114 350.1.13.10 4.2.7.2.686 [id number] [facility] 2022-08-02 11:00:00 2022-08-02 10:57:23 Outpatient R BAHAMINA [facility] [id number] [facility] 2022-08-01 00:00:00 2022-08-01 00:00:00 Telephone Leanne Murray [facility] 1.2.840.114 350.1.13.10 4.2.7.2.686 [id number] [facility] 2022-06-22 00:00:00 2022-06-22 00:00:00 Telephone Terry Wynne [facility] 1.2.840.114 350.1.13.10 4.2.7.2.686 [id number] [facility] 2022-06-11 00:00:00 2022-06-11 00:00:00 Patient Secure Msg Doctor Unassigned, [place] [facility] 1.2.840.114 350.1.13.10 4.2.7.2.686 [id number] [facility] 2022-06-04 00:00:00 2022-06-04 00:00:00 Telephone Terry Wynne [facility] 1.2.840.114 350.1.13.10 4.2.7.2.686 [id number] [facility] 2022-05-11 00:00:00 2022-05-11 00:00:00 Telephone Terry Wynne [facility] 1.2.840.114 350.1.13.10 4.2.7.2.686 [id number] [facility] 2022-05-09 11:00:00 2022-05-09 11:00:00 Office Visit Terry Wynne [facility] 1.2.840.114 350.1.13.10 4.2.7.2.686 [id number] [facility] 2022-05-09 10:45:00 2022-05-09 10:49:37 Shot Examiner Visit 2, Adc Lab Terry Wynne [facility] 1.2.840.114 350.1.13.10 4.2.7.2.686 [id number] [facility] 2022-05-09 11:00:00 2022-05-09 10:32:43 Outpatient R TERRY WYNNE OGECHUKWU [facility] [id number] [facility] 2022-05-09 00:00:00 2022-05-09 00:00:00 Patient Secure Msg Terry Wynne [facility] 1..840.114 350.1.13.10 4.2.7.2.686 [id number] [facility] 2022-05-04 00:00:00 2022-05-04 00:00:00 Outpatient SISSON_C [facility] [id number] [facility] 2022-01-11 00:00:00 2022-01-11 00:00:00 Refill Dany [facility] 1.2.840.114 350.1.13.10 4.2.7.2.686 [id number] [facility] 2021-12-11 11:40:00 2021-12-11 12:10:59 Outpatient R DANY [facility] [id number] [facility] 2021-12-11 11:40:00 2021-12-11 12:10:59 Urgent Care Dany [facility] 1..840.114 350.1.13.10 4.2.7.2.686 [id number] [facility] 2021-12-11 00:00:00 2021-12-11 00:00:00 Orders Only Doctor Unassigned, [place] [facility] 1.2.840.114 350.1.13.10 4.2.7.2.686 [id number] [facility] 2021-12-11 00:00:00 2021-12-11 00:00:00 Refill Shanna Saenz [facility] 1.2.840.114 350.1.13.10 4.2.7.2.686 [id number] [facility] 2021-12-03 00:00:00 2021-12-03 00:00:00 Telephone IshanShelley [facility] 1.2.840.114 350.1.13.10 4.2.7.2.686 [id number] [facility] 2021-12-03 00:00:00 2021-12-03 00:00:00 Telephone Deanna [facility] 1.2.840.114 350.1.13.10 4.2.7.2.686 [id number] [facility] 2021-12-02 12:20:00 2021-12-02 12:44:[address] [facility] [id number] [facility] 2021-12-02 12:20:00 2021-12-02 12:40:00 Urgent Care Deanna [facility] 1.2.840.114 350.1.13.10 4.2.7.2.686 [id number] [facility] 2021-09-06 10:44:00 2021-09-06 10:44:00 Outpatient SISSON_C [facility] [id number] [facility] 2021-09-06 00:00:00 2021-09-06 00:00:00 Outpatient Amarilis Berry [facility] [id number] 2021-09-06 00:00:00 2021-09-06 00:00:00 Amarilis Berry, MSN, ONLINE ADVERTISING DIRECTOR, ACADEMIC [employer]PARTMENT CHAIR-C: [address], [address], [place] [address] , Ph. [facility], Amarilis Berry, MSN, ACADEMIC DEPARTMENT CHAIR-C [id number] [facility] 2021-09-05 13:30:00 2021-09-05 13:30:00 Outpatient JOHNATHAN MALDONADO [facility] [id number] [facility] 2021-06-08 00:00:00 2021-06-08 00:00:00 Case Management Leanne Murray [facility] 1.2.840.114 350.1.13.10 4.2.7.2.686 [id number] [facility] 2021-06-08 00:00:00 2021-06-08 00:00:00 Telephone Johnathan Valenzuela [facility] 1.2.840.114 350.1.13.10 4.2.7.2.686 [id number] [facility] 2021-06-06 13:30:00 2021-06-06 13:55:25 Outpatient R JOHNATHAN VALENZUELA [facility] [id number] [facility] 2021-06-06 13:30:00 2021-06-06 13:55:25 Office Visit Johnathan Valenzuela Vivian L [facility] 1.2.840.114 350.1.13.10 4.2.7.2.686 [id number] [facility] 2021-06-06 00:00:00 2021-06-06 00:00:00 Orders Only Doctor Unassigned, [place] [facility] 1.2.840.114 350.1.13.10 4.2.7.2.686 [id number] [facility] 2021-03-01 10:10:00 2021-03-01 10:10:00 Outpatient SCHAUBROECK _L [facility] 15- 110 [facility] 2021-03-01 10:10:00 2021-03-01 10:10:00 Outpatient SCHAUBROECK _L [facility] 15- 412 [facility] 2021-03-01 00:00:00 2021-03-01 00:00:00 Outpatient Lamar Matthews [facility] [id number] 2021-03-01 00:00:00 2021-03-01 00:00:00 Lamar stuart, [facility]-: [address] [place] [address], [address], [place] [address] , Ph. [facility] [id number] [facility] 2021-02-20 12:30:00 2021-02-20 12:30:00 Outpatient SCHAUBROECK _L [facility] 15- 101 [facility] 2021-02-20 12:30:00 2021-02-20 12:30:00 Outpatient SCHAUBROECK _L [facility] [id number] [facility] 2021-02-20 00:00:00 2021-02-20 00:00:00 Outpatient Lamar Matthews [facility] [id number] 2021-02-20 00:00:00 2021-02-20 00:00:00 KAREN Reza-C: 8 [facility], [address] [place] [phone] , Ph. [facility] [id number] [facility] 2021-01-12 11:34:00 2021-01-12 11:34:00 Outpatient SCHAUBROECK _L [facility] [id number] [facility] 2020-12-21 11:23:00 2020-12-21 11:23:00 Outpatient SCHAUBROECK _L [facility] [id number] [facility] 2020-12-21 00:00:00 2020-12-21 00:00:00 Outpatient Lamar Matthews [facility] [id number] 2020-12-21 00:00:00 2020-12-21 00:00:00 KAREN Reza-C: [address] [place] [address], [address] [place] [phone] , Ph. [facility] [id number] [facility] 2020-12-13 10:17:00 2020-12-13 10:17:00 Outpatient SCHAUBROECK _L [facility] [id number] [facility] 2020-12-13 00:00:00 2020-12-13 00:00:00 KAREN Reza-C: [address] [place] [address], [address] [place] [phone] , Ph. [facility] [id number] [facility] 2020-12-13 00:00:00 2020-12-13 00:00:00 Outpatient Schaubroeck , Jada [facility] [id number] 2020-12-09 12:51:00 2020-12-09 12:51:00 Outpatient SCHAUBROECK _L [facility] [id number] [facility] 2020-12-08 04:19:00 2020-12-08 04:19:00 Outpatient SCHAUBROECK _L [facility] [id number] [facility] 2020-12-08 00:00:00 2020-12-08 00:00:00 KAREN Reza-C: [address] [place] [address], [address] [place] [phone] , Ph. [facility] [id number] [facility] 2020-12-08 00:00:00 2020-12-08 00:00:00 Outpatient MartinlesterLamar carreon [facility] [id number] 2020-11-09 04:10:00 2020-11-09 04:10:00 Outpatient SCHAUBROECK _L [facility] [id number] [facility] 2020-11-09 00:00:00 2020-11-09 00:00:00 KAREN Reza-C: [address] [place] [address], [address] [place] [phone] , Ph. [facility] [id number] [facility] 2020-11-09 00:00:00 2020-11-09 00:00:00 Outpatient Lamar Matthews [facility] [id number] 2020-11-09 00:00:00 2020-11-09 00:00:00 Outpatient PastorLamar carreon [facility] [id number] 2020-07-12 00:00:00 2020-07-12 00:00:00 Patient Outreach Regino Fernandes [facility] 1.2.840.114 350.1.13.10 4.2.7.2.686 [id number] [facility] 2020-07-04 05:06:00 2020-07-04 05:06:00 Outpatient SCHAUBROECK _L [facility] [id number] [facility] 2020-07-04 00:00:00 2020-07-04 00:00:00 Outpatient PastorLamar carreon [facility] [id number] 2020-07-04 00:00:00 2020-07-04 00:00:00 Lamar Echevarria Charlie stuart, [facility]-: [address] [place] [address], [address] [place] [phone] , Ph. [facility] [id number] [facility] 2020-05-12 03:16:00 2020-05-12 03:16:00 Outpatient SCHAUBROECK _L [facility] 15- 121 [facility] 2020-05-03 08:52:00 2020-05-03 08:52:00 Outpatient SCHAUBROECK _L [facility] 15- 112 [facility] 2020-05-02 01:56:00 2020-05-02 01:56:00 Outpatient SCHAUBROECK _L [facility] 15- 111 [facility] 2020-05-02 00:00:2020-05-02 00:00:00 Outpatient Lamar Matthews [facility] [id number] 2020-05-02 00:00:00 2020-05-02 00:00:00 JadaKAREN Estrada-C: [address] [place] [address], [address] [address] , Ph. [facility] [id number] [facility] 2020-04-28 04:56:00 2020-04-28 04:56:00 Outpatient CARA AvalosL [facility] [id number] [facility] 2020-04-28 00:00:00 2020-04-28 00:00:00 Outpatient Lamar Matthews [facility] [id number] 2020-04-28 00:00:00 2020-04-28 00:00:00 Outpatient Lamar Matthews [facility] [id number] 2020-04-28 00:00:00 2020-04-28 00:00:00 TAMIE Reza-C: [address] [place] [address], [address] [place] [phone] , Ph. [facility] [id number] [facility] 2019-10-19 17:43:00 2019-10-19 17:43:00 Outpatient Jake Lewis [facility] [id number] [facility] 2019-06-22 00:00:00 2019-06-22 00:00:00 Telephone Amina Bah [facility] 1.2.840.114 350.1.13.10 4.2.7.2.686 [id number] 134 [id number] [facility] 2019-06-22 00:00:00 2019-06-22 00:00:00 Telephone Amina Bah [facility] 1.2.840.114 350.1.13.10 4.2.7.2.686 [id number] 134 [id number] 2019-06-21 21:08:00 2019-06-21 21:57:00 Hospital Encounter Amina Bah [facility] 1.2.840.114 350.1.13.10 4.2.7.2.686 [id number] [facility] 2019-06-21 21:08:00 2019-06-21 21:57:00 Hospital Encounter Amina Bah [facility] 1.2.840.114 350.1.13.10 4.2.7.2.686 [id number] 2019-06-21 20:57:29 2019-06-21 20:58:31 Nurse Visit Nurse, Ang [facility] Unknown, Attending [facility] 1.2.840.114 350.1.13.10 4.2.7.2.686 [id number] [facility] 2019-06-21 20:57:29 2019-06-21 20:58:31 Nurse Visit Nurse, Ang Urgent Care [facility] 1.2.840.114 350.1.13.10 4.2.7.2.686 [id number] 2019-06-21 20:30:00 2019-06-21 20:30:00 Outpatient R UNKNOWN, ATTENDING [facility] [id number] [facility] 2019-06-21 00:00:00 2019-06-21 00:00:00 Orders Only Doctor Unassigned, [place] [facility] 1.2.840.114 350.1.13.10 4.2.7.2.686 [id number] 2019-06-21 00:00:00 2019-06-21 00:00:00 Orders Only Doctor Unassigned, [place] [facility] 1.2.840.114 350.1.13.10 4.2.7.2.686 [id number] [facility] 2019-06-15 10:00:00 2019-06-15 10:00:00 Outpatient JOHNATHAN MALDONADO [facility] [id number] [facility] 2019-06-10 00:00:00 2019-06-10 00:00[facility].840.114 350.1.13.10 4.2.7.2.686 [id number] 134 [id number] 2019-06-10 00:00:00 2019-06-10 00:00:00 Telephone Amina Bah [facility] 1.2.840.114 350.1.13.10 4.2.7.2.686 [id number] [facility] 2019-05-29 00:00:00 2019-05-29 00:00:00 Telephone Amina Bah [facility] 1.2.840.114 350.1.13.10 4.2.7.2.686 [id number] 2019-05-29 00:00:00 2019-05-29 00:00:00 Orders Only Doctor Unassigned, [place] [facility] 1.2.840.114 350.1.13.10 4.2.7.2.686 [id number] 2019-05-29 00:00:00 2019-05-29 00:00:00 Telephone Amina Bah [facility] 1.2.840.114 350.1.13.10 4.2.7.2.686 [id number] 134 [id number] [facility] 2019-05-29 00:00:00 2019-05-29 00:00:00 Orders Only Doctor Unassigned, [place] [facility] 1.2.840.114 350.1.13.10 4.2.7.2.686 [id number] [id number] [facility] 2019-05-27 00:00:00 2019-05-27 00:00:00 Telephone [facility] 1.2.840.114 350.1.13.10 4.2.7.2.686 [id number] 134 [id number] 2019-05-27 00:00:00 2019-05-27 00:00:00 Telephone [facility] 1.2.840.114 350.1.13.10 4.2.7.2.686 [id number] 134 [id number] [facility] 2019-05-25 00:00:00 2019-05-25 00:00:00 Telephone Amina Bah [facility] [place] [facility] 1.2.840.114 350.1.13.10 4.2.7.2.686 [id number] 134 [id number] 2019-05-25 00:00:00 2019-05-25 00:00:00 Telephone [facility] 1.2.840.114 350.1.13.10 4.2.7.2.686 [id number] 134 [id number] [facility] 2019-05-18 15:31:57 2019-05-18 16:39:05 Routine Visit Amina Bah [facility] 1.2.840.114 350.1.13.10 4.2.7.2.686 [id number] 134 [id number] 2019-05-18 15:31:57 2019-05-18 16:39:05 Routine Visit [facility] 1.2.840.114 350.1.13.10 4.2.7.2.686 [id number] 134 [id number] [facility] 2019-05-18 00:00:00 2019-05-18 00:00:00 Orders Only Doctor Unassigned, [place] [facility] 1.2.840.114 350.1.13.10 4.2.7.2.686 [id number] 009 [id number] 2019-05-18 00:00:00 2019-05-18 00:00:00 Orders Only Doctor Unassigned, [place] [facility] 1.2.840.114 350.1.13.10 4.2.7.2.686 [id number] [id number] [facility] 2019-05-13 00:00:00 2019-05-13 00:00:00 Abstract Sanam Ramirez [facility] [employer] [facility] 1.2.840.114 350.1.13.10 4.2.7.2.686 [id number] 107 [id number] 2019-05-13 00:00:00 2019-05-13 00:00:00 Abstract Sanam Ramirez [facility] [employer] [facility] 1.2.840.114 350.1.13.10 4.2.7.2.686 [id number] 107 [id number] [facility] 2019-04-20 00:00:00 2019-04-20 00:00:00 Orders Only Doctor Unassigned, [place] [facility] 1.2.840.114 350.1.13.10 4.2.7.2.686 [id number] 009 [id number] 2019-04-20 00:00:00 2019-04-20 00:00:00 Orders Only Doctor Unassigned, [place] [facility] 1.2.840.114 350.1.13.10 4.2.7.2.686 [id number] 009 [id number] [facility] 2018-12-12 00:00:00 2018-12-12 00:00:00 Orders Only Doctor Unassigned, [place] [facility] 1.2.840.114 350.1.13.10 4.2.7.2.686 [id number] 009 [id number] 2018-12-12 00:00:00 2018-12-12 00:00:00 Orders Only Doctor Unassigned, [place] [facility] 1.2.840.114 350.1.13.10 4.2.7.2.686 [id number] 009 [id number] [facility] 2018-12-03 18:02:02 2018-12-03 20:57:00 Emergency rosa mariaTeja yanes [facility] 1.2.840.114 350.1.13.10 4.2.7.2.686 [id number] 084 [id number] 2018-12-03 18:02:02 2018-12-03 20:57:00 [facility].114 350.1.13.10 4.2.7.2.686 [id number] 084 [id number] [facility] 2018-12-03 00:00:00 2018-12-03 00:00:00 Orders Only Doctor Unassigned, [place] [facility] 1.2.840.114 350.1.13.10 4.2.7.2.686 [id number] 009 [id number] 2018-12-03 00:00:00 2018-12-03 00:00:00 Orders Only Doctor Unassigned, [place] [facility] 1.2.840.114 350.1.13.10 4.2.7.2.686 [id number] 009 [id number] [facility] Results Test Description Test Time Test Comments Results Result Co [facility] (BINAX NOW)2023-10-11 19:15:00* Test Item Value Reference Range Interpretation Comme nts POCT SARS-COV-2 ANTIGEN (test code = 36103-1) Not Detected Not Detected On board controls acceptable with C Line (test code = 3574) Yes PHILL (test code = PHILL) accurate developme nt and interpretation of all internal controls Lab Interpretation (test code = 39731-4) Normal [facility] MOLECULAR [id number] 19:11:32* Test Item Value Reference Range Interpretation Comme nts POCT Molecular Strep (test c ode = 12618-0) Negative Negative Lab Interpretation (test cod e = 83319-9) Normal [facility] [id number] 18:36:00* Test Item Value Reference Range Interpretation Comme nts POCT PREG (test code = 1605) Negative On board controls acceptable with C Line (test code = 3574) Yes POCT PREG LOT # (test code = 3575) POCT PREG TEST DATE ( test code = 3576) [facility] [id number] 18:36:00* Test Item Value Reference Range Interpretation Comme nts POCT PREG (test code = 1605) Negative On board controls acceptable with C Line (test code = 3574) Yes POCT PREG LOT # (test code = 3575) POCT PREG TEST DATE ( test code = 3576) [facility] URINALYSIS W/O SPECIFIC [id number] 18:39:00* Test Item Value Reference Range Interpretation Comme nts POCT PH U (test code = 3254) 6 mg/dl 5-8 POCT U LEUK EST (test code = 3263) Negative Negative - Negative POCT U NIT (test code = 3262) Negative Negative - Negati ve POCT U PROT (test code = 3259) Negative Negative - Negat mili POCT U GLU (test code = 3256) Negative Negative - Negati ve POCT U KETONE (test code = 3258) Negative Negative - Neg ative POCT U BLD (test code = 3257) Negative Negative - Negati ve [facility] URINALYSIS W/O SPECIFIC [id number] 18:39:00* Test Item Value Reference Range Interpretation Comme nts POCT PH U (test code = 3254) 6 mg/dl 5-8 POCT U LEUK EST (test code = 3263) Negative Negative - Negative POCT U NIT (test code = 3262) Negative Negative - Negati ve POCT U PROT (test code = 3259) Negative Negative - Negat mili POCT U GLU (test code = 3256) Negative Negative - Negati ve POCT U KETONE (test code = 3258) Negative Negative - Neg ative POCT U BLD (test code = 3257) Negative Negative - Negati ve [facility] MOLECULAR [id number] 01:19:24* Test Item Value Reference Range Interpretation Comme nts POCT Molecular Strep (test c ode = 11867-8) Negative Negative Lab Interpretation (test cod e = 11044-8) Normal [facility] MOLECULAR [id number] 23:15:46* Test Item Value Reference Range Interpretation Comme nts POCT Molecular Strep (test c ode = 67237-4) Positive Negative A Lab Interpretation (test cod e = 67684-7) Abnormal [facility] [id number] 04:37:11 * Test Item Value Reference Range Interpretation Comme nts TSH (test code = 8438910400) 0.74 See_Comment [Automated messa ge] The system which generated this result transmitted reference range: 0.45 - 4.70 mIU/L. The reference range was not used to interpret this result as normal/abnormal. Lab Interpretation (test code = 89858-3) Normal [facility] [id number] 04:23:51* Test Item Value Reference Range Interpretation Comme nts FREE T4 (test code = 9608445023) 0.87 See_Comment [Automated messa ge] The system which generated this result transmitted reference range: 0.78 - 2.20 ng/dL:. The reference range was not used to interpret this result as normal/abnormal. Lab Interpretation (test code = 43465-4) Normal [facility] [id number] 04:23:31* Test Item Value Reference Range Interpretation Comme nts FREE T3 (test code = 6658109709) 3.59 pg/mL 2.77-5.27 Lab Interpretation (test cod e = 48244-6) Normal [facility]. METABOLIC PANEL (30993)2022-10-17 04:09:30* Test Item Value Reference Range Interpretation Comme nts NA (test code = 2192152781) 140 mmol/L 135-145 K (test code = 7294937070) 4.2 mmol/L 3.5-5.0 CL (test code = 2369461195) 102 mmol/L 98-108 CO2 TOTAL (test code = 3691109486) 27 mmol/L 23-31 AGAP (test code = 7704305046) 11 2-16 BUN (test code = 2492660283) 12 mg/dL 7-23 GLUCOSE (test code = 1889467366) 87 mg/dL 70-110 CREATININE (test code = 4933465524) 0.66 mg/dL 0.50-1.04 TOTAL BILI (test code = 4186004275) 0.4 mg/dL 0.1-1.1 CALCIUM (test code = 9688887929) 9.2 mg/dL 8.6-10.6 T PROTEIN (test code = 4914298656) 7.3 g/dL 6.3-8.2 ALBUMIN (test code = 4973617969) 4.5 g/dL 3.5-5.0 ALK PHOS (test code = 4696143138) 53 U/L 34-122 ALTv (test code = 1742-6) 25 U/L 5-35 AST(SGOT) (test code = 6071508154) 29 U/L 13-40 eGFR (test code = 7441560303) 107.4 mL/min/1.73m2 PHILL (test code = PHILL) Association of Glomerular Filtration Rate (GFR) and Staging of Kidney Disease* + + +- +| GFR (mL/min/1.73 m2) ?| With Kidney Damage ?| ?Without Kidney Damage+ ------+ ----+ ------+| ?>90 ?| ?Stage one ?| ? Normal ?+ -+ + -+| ?60-89 ?| ?Stage two ?| ? Decreased GFR ? + + +- +| ?30-59 ?| ?Stage three ?| ? Stage three ? + + +- +| ?15-29 ?| ?Stage four ? | ? Stage four ?+ -+ + -+| ?<15 (or dialysis) ? ?| ?Stage five ? | ? Stage five ?+ -+ + -+ *Each stage assumes the associated GFR level has been in effect for at least three months. ?Stages 1 to 5, with or without kidney disease, indicate chronic kidney disease. Notes: Determination of stages one and two (with eGFR >59mL/min/1.73 m2) requires estimation of kidney damage for at least three months as defined by structural or functional abnormalities of the kidney, manifested by either:Pathological abnormalities or Markers of kidney damage (including abnormalities in the composition of the blood or urine or abnormalities in imaging tests). [facility] WITH [id number] 03:58:46* Test Item Value Reference Range Interpretation Comme nts WBC (test code = 6690-2) 5.09 See_Comment [Automated Mytrus] The system which generated this result transmitted reference range: 4.30 - 11.10 10*3/?L. The reference range was not used to interpret this result as normal/abnormal. RBC (test code = 789-8) 3.85 See_Comment L [Automated Mytrus] The system which generated this result transmitted reference range: 3.93 - 5.25 10*6/?L. The reference range was not used to interpret this result as normal/abnormal. HGB (test code = 718-7) 11.9 g/dL 11.6-15.0 HCT (test code = 4544-3) 34.8 % 35.7-45.2 L MCV (test code = 787-2) 90.4 fL 80.6-95.5 MCH (test code = 785-6) 30.9 pg 25.9-32.8 MCHC (test code = 786-4) 34.2 g/dL 31.6-35.1 RDW-SD (test code = 65220-9) 41.4 fL 39.0-49.9 RDW-CV (test code = 788-0) 12.5 % 12.0-15.5 PLT (test code = 777-3) 311 See_Comment [Automated Mytrus] The system which generated this result transmitted reference range: 166 - 358 10*3/?L. The reference range was not used to interpret this result as normal/abnormal. MPV (test code = 22438-3) 10.4 fL 9.5-12.9 NRBC/100 WBC (test code = 7707761301) 0.0 See_Comment [Automated me ssage] The system which generated this result transmitted reference range: 0.0 - 10.0 /100 WBCs. The reference range was not used to interpret this result as normal/abnormal. NRBC x10^3 (test code = 5128783824) See_Comment [Automated messa ge] The system which generated this result transmitted reference range: 10*3/?L. The reference range was not used to interpret this result as normal/abnormal. GRAN MAT (NEUT) % (test code = 770-8) 48.7 % IMM GRAN % (test code = 0154647518) 0.40 % LYMPH % (test code = 736-9) 38.5 % MONO % (test code = 5905-5) 6.9 % EOS % (test code = 713-8) 4.7 % BASO % (test code = 706-2) 0.8 % GRAN MAT x10^3(ANC) (test code = 1258988634) 2.48 10*3/uL 1.88-7.09 IMM GRAN x10^3 (test code = 8288402774) 0.00-0.06 LYMPH x10^3 (test code = 731-0) 1.96 10*3/uL 1.32-3.29 MONO x10^3 (test code = 742-7) 0.35 10*3/uL 0.33-0.92 EOS x10^3 (test code = 711-2) 0.24 10*3/uL 0.03-0.39 BASO x10^3 (test code = 704-7) 0.04 10*3/uL 0.01-0.07 Lab Interpretation (test code = 85594-7) Abnormal [facility] [id number] 15:41:00* Test Item Value Reference Range Interpretation Comme nts POCT PREG (test code = 1605) Negative On board controls acceptable with C Line (test code = 3574) Yes POCT PREG LOT # (test code = 3575) POCT PREG TEST DATE ( test code = 3576) [facility] [id number] 15:41:00* Test Item Value Reference Range Interpretation Comme nts POCT PREG (test code = 1605) Negative On board controls acceptable with C Line (test code = 3574) Yes POCT PREG LOT # (test code = 3575) POCT PREG TEST DATE ( test code = 3576) [facility] [id number] 17:25:59* Test Item Value Reference Range Interpretation Comme nts POCT Molecular Strep (test c ode = 47203-2) Negative Negative Lab Interpretation (test cod e = 82925-8) Normal [facility] Ag [Presence] in Respiratory specimen by Rapid [id number] 10:05:00* Test Item Value Reference Range Interpretation Comme nts SARS CoV 2 (test code = SARS CoV 2) negative [facility] Ag [Presence] in Respiratory specimen by Rapid [id number] 08:39:00* Test Item Value Reference Range Interpretation Comme nts SARS CoV 2 (test code = SARS CoV 2) positive [facility] strep group A, [id number] 14:57:00 * Test Item Value Reference Range Interpretation Comme nts Strep (test code = Strep) negative [facility] Ag [Presence] in Respiratory specimen by Rapid [id number] 15:32:00* Test Item Value Reference Range Interpretation Comme nts SARS CoV 2 (test code = SARS CoV 2) negative [facility] strep group A, [id number] 15:31:00 * Test Item Value Reference Range Interpretation Comme nts Strep (test code = Strep) negative [facility]rop[facility] I.cardiac [Mass/volume] in Serum or [id number] 00:00:00* Test Item Value Reference Range Interpretation Comme nts Troponin I.cardiac [Mass/vol ume] in Serum or Plasma (test code = 40848-9) <0.01 0.00-0.04 [facility] ClinicsTrop[facility] T.cardiac [Mass/volume] in Serum or [id number] 00:00:00* Test Item Value Reference Range Interpretation Comme nts Troponin T.cardiac [Mass/vol ume] in Serum or Plasma (test code = 6598-7) <0.010 <0.011 [facility] Centerwritten [id number] 00:00:00* Test Item Value Reference Range Interpretation Comme nts written authorization (test code = written authorization) comment [facility] and TSH [facility] - Serum or Plasma 2020-04-29 00:00:00* Test Item Value Reference Range Interpretation Comme nts Thyrotropin [Units/volume] i n Serum or Plasma by Detection limit <= 0.005 mIU/L (test code = 53012-7) 0.691 uIU/mL 0.450-4.500 Thyroxine (T4) free [Mass/volume] in Serum or Plasma (test code = 3024-7) 1.01 NG/dL 0.82-1.77 [facility] W Auto Differential panel - [id number] 00:00:00* Test Item Value Reference Range Interpretation Comme nts Leukocytes [#/volume] in Blo od by Automated count (test code = 6690-2) 5.5 x10e3/uL 3.4-10.8 Erythrocytes [#/volume] in Blood by Automated count (test code = 789-8) 4.01 x10e6/uL 3.77-5.28 Hemoglobin [Mass/volume] in Blood (test code = 718-7) 12.1 g/dL 11.1-15.9 Hematocrit [Volume Fraction] of Blood by Automated count (test code = 4544-3) 36.3 % 34.0-46.6 Erythrocyte mean corpuscular volume [Entitic volume] by Automated count (test code = 787-2) 91 fL 79-97 Erythrocyte mean corpuscular hemoglobin [Entitic mass] by Automated count (test code = 785-6) 30.2 pg 26.6-33.0 Erythrocyte mean corpuscular hemoglobin concentration [Mass/volume] by Automated count (test code = 786-4) 33.3 g/dL 31.5-35.7 Erythrocyte distribution wid th [Ratio] by Automated count (test code = 788-0) 13.0 % 11.7-15.4 Platelets [#/volume] in Bloo d by Automated count (test code = 777-3) 338 x10e3/uL 150-450 Neutrophils/100 leukocytes i n Blood by Automated count (test code = 770-8) 58 % not estab. Lymphocytes/100 leukocytes i n Blood by Automated count (test code = 736-9) 32 % not estab. Monocytes/100 leukocytes in Blood by Automated count (test code = 5905-5) 6 % not estab. Eosinophils/100 leukocytes i n Blood by Automated count (test code = 713-8) 3 % not estab. Basophils/100 leukocytes in Blood by Automated count (test code = 706-2) 1 % not estab. immature cells (test code = immature cells) stripper black and white Neutrophils [#/volume] in Bl ood by Automated count (test code = 751-8) 3.2 x10e3/uL 1.4-7.0 Lymphocytes [#/volume] in Bl ood by Automated count (test code = 731-0) 1.8 x10e3/uL 0.7-3.1 Monocytes [#/volume] in Bloo d by Automated count (test code = 742-7) 0.3 x10e3/uL 0.1-0.9 Eosinophils [#/volume] in Bl ood by Automated count (test code = 711-2) 0.2 x10e3/uL 0.0-0.4 Basophils [#/volume] in Bloo d by Automated count (test code = 704-7) 0.0 x10e3/uL 0.0-0.2 Immature granulocytes/100 leukocytes in Blood by Automated count (test code = 06375-2) 0 % not estab. Immature granulocytes [#/volume] in Blood by Automated count (test code = 65889-2) 0.0 x10e3/uL 0.0-0.1 Nucleated erythrocytes/100 leukocytes [Ratio] in Blood by Automated count (test code = 43583-9) stripper black and white Morphology [Interpretation] in Blood Narrative (test code = 99122-4) stripper black and white [facility] CenterComprehensive [facility] 2000 panel - Serum or [id number] 00:00:00* Test Item Value Reference Range Interpretation Comme nts Glucose [Mass/volume] in Serum or Plasma (test code = 2345-7) 85 mg/dL 65-99 Urea nitrogen [Mass/volume] in Serum or Plasma (test code = 3094-0) 9 mg/dL 6-20 Creatinine [Mass/volume] in Serum or Plasma (test code = 2160-0) 0.64 mg/dL 0.57-1.00 Glomerular filtration rate/1.73 sq M.predicted among non-blacks [Volume Rate/Area] in Serum, Plasma or Blood by Creatinine-based formula (CKD-EPI) (test code = 17532-0) 125 mL/min/1.73 >59 Glomerular filtration rate/1.73 sq M.predicted among blacks [Volume Rate/Area] in Serum, Plasma or Blood by Creatinine-based formula (CKD-EPI) (test code = 83169-9) 144 mL/min/1.73 >59 Urea nitrogen/Creatinine [Mass Ratio] in Serum or Plasma (test code = 3097-3) 14 9-23 Sodium [Moles/volume] in Serum or Plasma (test code = 2951-2) 140 mmol/L 134-144 Potassium [Moles/volume] in Serum or Plasma (test code = 2823-3) 4.1 mmol/L 3.5-5.2 Chloride [Moles/volume] in Serum or Plasma (test code = 5-0) 103 mmol/L 96-106 Carbon dioxide, total [Moles/volume] in Serum or Plasma (test code = 2027-9) 21 mmol/L 20-29 Calcium [Mass/volume] in Serum or Plasma (test code = 31734-8) 8.7 mg/dL 8.7-10.2 Protein [Mass/volume] in Serum or Plasma (test code = 2885-2) 6.7 g/dL 6.0-8.5 Albumin [Mass/volume] in Serum or Plasma (test code = 1751-7) 4.4 g/dL 3.9-5.0 Globulin [Mass/volume] in Serum by calculation (test code = 61098-3) 2.3 g/dL 1.5-4.5 Albumin/Globulin [Mass Ratio ] in Serum or Plasma (test code = 1759-0) 1.9 1.2-2.2 Bilirubin.total [Mass/volume ] in Serum or Plasma (test code = 1975-2) <0.2 0.0-1.2 Alkaline phosphatase [Enzymatic activity/volume] in Serum or Plasma (test code = 6768-6) 63 IU/L 39-117 Aspartate aminotransferase [Enzymatic activity/volume] in Serum or Plasma (test code = 1920-8) 16 IU/L 0-40 Alanine aminotransferase [Enzymatic activity/volume] in Serum or Plasma (test code = 1742-6) 8 IU/L 0-32 [facility] [id number] 00:00:00* Test Item Value Reference Range Interpretation Comme nts one specimen identifier (sly t code = one specimen identifier) comment [facility] CenterH[facility] [id number] 06:35:00* Test Item Value Reference Range Interpretation Comme nts HEMOGLOBIN (test code = HGB) 8.4 g/dL 10.7-13.9 L HEMATOCRIT (test code = HCT) 26.7 % 32.1-42.1 L COMPREHENSIVE METABOLIC [id number] 11:50:00* Test Item Value Reference Range Interpretation Comme nts SODIUM (test code = NA) 137 mEq/L 135-145 N POTASSIUM (test code = K) 3.9 mEq/L 3.5-5.0 N CHLORIDE (test code = CL) 103 mEq/L 100-115 N CARBON DIOXIDE (test code = CO2) 23 mEq/L 22-31 N ANION GAP (test code = GAP) 14.50 10-20 N GLUCOSE (test code = GLU) 73 mg/dL 65-110 N BLOOD UREA NITROGEN (test co de = BUN) 10 mg/dL 7-18 N GLOMERULAR FILTRATION RATE ( test code = GFR) 103 ml/min >60 N CREATININE (test code = CREAT) 0.7 mg/dL 0.5-1.0 N TOTAL PROTEIN (test code = PROT) 6.7 gm/dL 6.3-8.2 N ALBUMIN (test code = ALB) 3.1 gm/dL 3.4-4.8 L CALCIUM (test code = CA) 8.2 mg/dL 8.4-10.2 L BILIRUBIN TOTAL (test code = BILT) 0.2 mg/dL 0.2-1.0 N SGOT/AST (test code = AST) 12 units/L 15-37 L SGPT/ALT (test code = ALT) 9 units/L 12-78 L ALKALINE PHOSPHATASE TOTAL ( test code = ALKP) 234 units/L 46-116 H Novel Coronavirus 2019 [id number] 09:59:00* Test Item Value Reference Range Interpretation Comme nts Novel Coronavirus 2019 Inhou se (test code = COVNONPUI) Negative Negative Novel Coronavirus 2019 Bktngzs7885-69-31 09:59:00* Test Item Value Reference Range Interpretation Comme nts Novel Coronavirus 2019 Inhou se (test code = COVNONPUI) Negative Negative AG HEPATITIS B [id number] 17:41:00* Test Item Value Reference Range Interpretation Comme nts AG HEPATITIS B SURFACE (test code = HBSAG) NONREACTIVE NONREACTIVE : *IS CONSENT FORM SIGNED FOR HIV TESTING? YAB [id number] 17:41:00* Test Item Value Reference Range Interpretation Comme nts AB TREPONEMA (test code = TREPAB) NONREACTIVE NONREACTIVE : *IS CONSENT FORM SIGNED FOR HIV TESTING? YAB HIV 1 17:41:00* Test Item Value Reference Range Interpretation Comme nts AB HIV 1 2 (test code = KGC41PG) NONREACTIVE NONREACTIVE Done by [employer] Mone[employer] 4[employer] Gen HIV Ag/Ab Combo Screen : *IS CONSENT FORM SIGNED FOR HIV TESTING? YAG HEPATITIS B [id number] 17:11:00* Test Item Value Reference Range Interpretation Comme nts AG HEPATITIS B SURFACE (test code = HBSAG) NONREACTIVE NONREACTIVE : *IS CONSENT FORM SIGNED FOR HIV TESTING? YAB [id number] 17:11:00* Test Item Value Reference Range Interpretation Comme nts AB TREPONEMA (test code = TREPAB) NONREACTIVE NONREACTIVE : *IS CONSENT FORM SIGNED FOR HIV TESTING? YAB HIV 1 17:11:00* Test Item Value Reference Range Interpretation Comme nts AB HIV 1 2 (test code = RMH59XA) NONREACTIVE : *IS CONSENT FORM SIGNED FOR HIV TESTING? YCBC W/AUTO [id number] 16:34:00* Test Item Value Reference Range Interpretation Comme nts WHITE BLOOD CELL (test code = WBC) [...] pg 27-35 N MEAN CELL HGB CONCETRATION ( test code = MCHC) 31.6 gm/dL 32.2-34.1 L RED CELL DISTRIBUTION WIDTH (test code = RDW) 13.4 % 12.4-16.5 N PLATELET COUNT (test code = PLT) 256 K/mm3 133-385 N MEAN PLATELET VOLUME (test c ode = MPV) 10.6 fl 9.1-12.7 N NEUTROPHIL % (test code = NT%) 76.0 [...] = BA#) 0.0 K/mm3 RBC MORPHOLOGY REQUIRED (sly t code = RBCM) NORMAL NORMAL PLATELET MORPHOLOGY REQUIRED (test code = PLTMR) NORMAL NORMAL"
--- NOTE | 2024-04-22 19:03 | RAD REPORT ---
EXAMINATION: TWO VIEW CHEST XR CLINICAL INDICATION: Congestion;Cough TECHNIQUE: 2 views of the chest was performed. COMPARISON: No prior exam. FINDINGS: The lungs are well inflated and clear. The heart is normal in size. No displaced fractures evident. IMPRESSION: No acute or significant abnormalities.
[2024-04-22 19:06] LABS: SARS-CoV-2 Antigen CONTROL BLUE LINE VIS/BG OK; SARS-CoV-2 Antigen Rapid Res Negative (Negative)
[2024-04-22] MEDS ORDERED: KETOROLAC 30 MG/ML INJ ONE (19:51)
--- NOTE | 2024-04-22 19:52 | EDPHYS ---
Physician Documentation [facility] Name: Kate Ley Age: 28 yrs Sex: Female : 1995 Arrival Date: 04/22/2024 Time: 18:09 Bed 5 Private MD: ED Physician Henry Dior HPI: 04/22 20:12 This 28 yrs old Female presents to ER via Ambulatory with complaints of Back Pain, kb Cough, Headache. 20:12 Pt is a 28 year old female who presents for cough, congestion, headache, runny nose, kb back pain with cough, fever that started a week ago. States she feels like she coughs up fluid when she coughs. Denies vomiting, diarrhea, chest pain. Historical: - Allergies: 18:29 PENICILLINS; rs5 - PMHx: 18:29 Anxiety; rs5 - PSHx: 18:29 section; rs5 - Immunization history:: Adult Immunizations up to date. - Infectious Disease History:: Denies. - Social history:: Smoking status: Patient denies any tobacco usage or history of. ROS: 20:10 Constitutional: As per HPI kb Exam: 20:10 Constitutional: This is a well developed, well nourished patient who is awake, alert, kb and in no acute distress. Head/Face: Normocephalic, atraumatic. ENT: Moist Mucous membranes Cardiovascular: Regular rate Respiratory: Respirations even and unlabored. No increased work of breathing. Talking in full sentences Abdomen/GI: Soft, non-tender. No distention Skin: Warm, dry with normal turgor. Normal color. MS/ Extremity: Pulses equal, no cyanosis. Neurovascular intact. Full, normal range of motion. Neuro: Awake and alert, GCS 15, oriented to person, place, time, and situation. 20:10 ENT: External ear(s): are unremarkable, Ear canal(s): are normal, TM's: fluid levels, bilaterally, Posterior pharynx: is normal, Vital Signs: 18:26 BP 116 / 80; Pulse 105; Resp 18; Temp 99.5(TE); Pulse Ox 99% ; Weight 61.23 kg; rs5 18:40 BP 112 / 71; Pulse 106; Resp 18; Pulse Ox 98% on R/A; ld1 19:45 BP 102 / 77; Pulse 79; Resp 19; Pulse Ox 100% ; Pain 8/10; jj7 19:45 Pain Scale: Adult jj7 MDM: 18:28 Medical Screening Exam initiated kb 20:11 Differential Diagnosis: Bronchitis Influenza Upper Respiratory Infection Sinusitis kb Pneumonia. Data reviewed: vital signs, nurses notes. Counseling: I had a detailed discussion with the patient and/or guardian regarding the historical points, exam findings, and any diagnostic results supporting the discharge/admit diagnosis, lab results, radiology results, the need for outpatient follow up, a family practitioner, to return to the emergency department if symptoms worsen or persist or if there are any questions or concerns that arise at home. ED course: Pt states she was allergic to penicillin when she was young, but has taken amoxicillin without reaction. . 04/22 18:32 Order name: Flu; Complete Time: 19:18 kb 04/22 18:32 Order name: SARS-COV-2 Antigen Rapid; Complete Time: 19:18 kb 04/22 18:32 Order name: Chest Pa And Lat (2 Views) XRAY; Complete Time: 19:05 kb Administered Medications: 19:56 Drug: Ketorolac IM 30 mg IM once Route: IM; Site: left deltoid; jj7 20:10 Follow up: Response: Marked relief of symptoms; Pain is decreased jj7 Disposition Summary: 04/22/24 19:52 Discharge Ordered Notes: Location: Home kb Condition: Stable kb Diagnosis - Acute sinusitis, unspecified kb Followup: kb - With: Emergency Department - When: As needed - Reason: Worsening of condition Followup: kb - With: Private Physician - When: 2 - 3 days - Reason: Recheck today's complaints, Continuance of care, Re-evaluation by your physician Discharge Instructions: - Discharge Summary Sheet kb - Sinusitis, Adult, [id number] kb Forms: - Medication Reconciliation Form kb - Antibiotic Education kb - Prescription Opioid Use kb - Patient Portal Instructions kb - Leadership Thank You Letter kb Prescriptions: - Augmentin 875-125 mg Oral Tablet - take 1 tablet ORAL route every 12 hours for 10 days; 20 tablet; Refills: 0, kb Product Selection Permitted Signatures: Dispatcher [employer] Tana Batres FNP-C FNP-Ckb Johnson, Juwairiyah, RN RN jj7 Jack, Joe, RN RN rs5 Corrections: (The following items were deleted from the chart) 18:32 18:32 Influenza Screen (A \T\ B)+BA.LAB.BRZ ordered. EDMS EDMS 18:32 18:32 SARS-COV-2 Antigen Rapid+I.LAB.BRZ ordered. EDMS EDMS 18:32 18:32 Chest Pa And Lat (2 Views)+RAD.RAD.BRZ ordered. EDMS EDMS 20:14 20:12 Pt is a 28 year old female who presents for cough, congestion, back pain with kb cough, fever that started a week ago. States she feels like she coughs up fluid when she coughs. Denies vomiting, diarrhea, chest pain. kb
--- NOTE | 2024-04-22 19:52 | ER ---
Nurse's Notes [facility] Name: Kate Ley Age: 28 yrs Sex: Female : 1995 Arrival Date: 04/22/2024 Time: 18:09 Bed 5 Private MD: Diagnosis: Acute sinusitis, unspecified Presentation: 04/22 18:26 Chief complaint: Patient states: Cough, headache, runny nose and rib pain from rs5 coughing. Onset of s/s prior to [place], placed on amoxicillin by primary care and symptoms not improving. Coronavirus screen: At this time, the client does not indicate any symptoms associated with coronavirus-19. Ebola Screen: No symptoms or risks identified at this time. Initial Sepsis Screen: Does the patient meet any 2 criteria? HR > 90 bpm. Yes Does the patient have a suspected source of infection? No. Patient's initial sepsis screen is negative. Risk Assessment: Do you want to hurt yourself or someone else? Patient reports no desire to harm self or others. Onset of symptoms was April 10, 2024. 18:26 Method Of Arrival: Ambulatory rs5 18:26 Acuity: DYLON 3 rs5 Historical: - Allergies: 18:29 PENICILLINS; rs5 - PMHx: 18:29 Anxiety; rs5 - PSHx: 18:29 section; rs5 - Immunization history:: Adult Immunizations up to date. - Infectious Disease History:: Denies. - Social history:: Smoking status: Patient denies any tobacco usage or history of. Screenin:40 [facility] ED Fall Risk Assessment (Adult) History of falling in the last 3 months, ld1 including since admission No falls in past 3 months (0 pts) Confusion or Disorientation No (0 pts) Intoxicated or Sedated No (0 pts) Impaired Gait No (0 pts) Mobility Assist Device Used No (0 pt) Altered Elimination No (0 pt) Score/Fall Risk Level 0 - 2 = Low Risk Oriented to surroundings, Maintained a safe environment, Educated pt \T\ family on fall prevention, incl call for assistance when getting out of bed, Assessed \T\ reinforced patient's understanding of fall precautions, Provided non-skid footwear, Hourly rounding (assess needs \T\ fall precautionary measures) done, Used ambulatory aids as needed (educated on \T\ assisted with), Used gait belt as appropriate. Abuse screen: Denies threats or abuse. Denies injuries from another. Nutritional screening: No deficits noted. Tuberculosis screening: No symptoms or risk factors identified. Assessment: 18:40 General: Appears in no apparent distress. comfortable, Behavior is calm, cooperative, ld1 appropriate for age. Pain: Complains of pain in diaphragm Pain does not radiate. Pain currently is 8 out of 10 on a pain scale. Quality of pain is described as throbbing, Pain began suddenly. Neuro: Level of Consciousness is awake, alert, obeys commands, Oriented to person, place, time, situation, Appropriate for age. Cardiovascular: Capillary refill < 3 seconds Patient's skin is warm and dry. Respiratory: Reports cough that is Airway is patent Respiratory effort is even, unlabored. GI: Abdomen is flat, non-distended. : No signs and/or symptoms were reported regarding the genitourinary system. EENT: No signs and/or symptoms were reported regarding the EENT system. Derm: No signs and/or symptoms reported regarding the dermatologic system. Musculoskeletal: No signs and/or symptoms reported regarding the musculoskeletal system. 19:45 General: Appears in no apparent distress. comfortable, Behavior is calm, cooperative, jj7 appropriate for age. Pain: Complains of pain in back. Musculoskeletal: Reports pain in back since FOR 3 WKS. Vital Signs: 18:26 BP 116 / 80; Pulse 105; Resp 18; Temp 99.5(TE); Pulse Ox 99% ; Weight 61.23 kg; rs5 18:40 BP 112 / 71; Pulse 106; Resp 18; Pulse Ox 98% on R/A; ld1 19:45 BP 102 / 77; Pulse 79; Resp 19; Pulse Ox 100% ; Pain 8/10; jj7 19:45 Pain Scale: Adult jj7 ED Course: 18:13 Patient arrived in ED. mr 18:28 Tana Patel [facility]NP-C [facility]. kb 18:28 Henry Dior MD is Attending Physician. kb 18:29 Triage completed. rs5 18:39 Octavio Godinez, JEREL is Primary Nurse. tm6 18:40 Patient has correct armband on for positive identification. Placed in gown. Bed in low ld1 position. Call light in reach. Side rails up X2. hall monitor on. Pulse ox on. NIBP on. Door closed. Noise minimized. Warm blanket given. 18:40 No provider procedures requiring assistance completed. ld1 18:46 SARS-COV-2 Antigen Rapid Sent. tm6 18:46 Flu Sent. tm6 19:01 Chest Pa And Lat (2 Views) XRAY In Process Unspecified. EDMS 19:45 Provided Education on: USE OF CALL RODRIGUEZ. jj7 20:05 Arm band placed on right wrist. jj7 20:05 Patient did not have IV access during this emergency room visit. jj7 Administered Medications: 19:56 Drug: Ketorolac IM 30 mg IM once Route: IM; Site: left deltoid; jj7 20:10 Follow up: Response: Marked relief of symptoms; Pain is decreased jj7 Medication: 18:40 VIS not applicable for this client. ld1 Outcome: 19:52 Discharge ordered by . kb 20:05 Discharged to home ambulatory, jj7 20:05 Condition: improved 20:05 Discharge instructions given to patient, Instructed on discharge instructions, follow up and referral plans. medication usage, Demonstrated understanding of instructions, follow-up care, medications, Prescriptions given X 1, 20:05 Patient left the ED. jj7 Signatures: Dispatcher [employer] EDMS Tana Patel, CONVERSION DEVELOPER-C CONVERSION DEVELOPER-Ckb Greta Win, Reg Reg mr Mayra Godinez, RN RN ld1 Wayne Bocanegra RN RN [id number] Joe Jack RN RN rs5 Octavio Godniez RN RN tm6 Corrections: (The following items were deleted from the chart) 20:10 20:10 Pain: Also complains of jj7 jj7 20:12 20:11 Patient left the ED. jj7 jj7
[2024-04-22 21:20] VITALS: TEMP 99.5
[2024-04-22 21:23] VITALS: BP 102/77; O2SAT 100
== END 2024-04-22 20:11 | disposition home or self-care (01) ==
LOC: ER 18:09
DX: J01.90 Acute sinusitis, unspecified (principal)
CPT/HCPCS: 36415; 71046; 87804; 87811; 96372; 99285